=== PATIENT | male | born 1990 | race Hispanic/Latino ===

== ENCOUNTER 2017-01-16 18:42 | Inpatient (IN) | payer OTHER ==
[~2017-01-16] VITALS: Ht 170.2 cm; Wt 61.2 kg
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
[2017-01-16 20:31] LABS: ABSOLUTE BASOPHIL COUNT 0 /CUMM (0.0-0.2); ABSOLUTE EOSINOPHIL COUNT 0 /CUMM (0.0-0.7); ABSOLUTE GRANULOCYTE CT 4.8 /CUMM (1.4-6.5); ABSOLUTE LYMPH COUNT 0.9 /CUMM (1.2-3.4); ABSOLUTE MONOCYTE COUNT 0.9 /CUMM (0.10-0.60); BASOPHIL % 0.2 % (0.0-2.0); EOSINOPHIL % 0.1 % (0-5); GRANULOCYTE % 72.9 % (42.2-75.2); MEAN CORPUSCULAR HGB 30.1 PG (27.0-31.0); MEAN CORPUSCULAR HGB CONC 32.8 G/DL (33.0-37.0); MEAN CORPUSCULAR VOLUME 91.8 FL (80.0-94.0); MEAN PLATELET VOLUME 9.4 FL (7.4-10.4); PLATELET COUNT 140 /CUMM (130-400); RBC DISTRIBUTION WIDTH 13.4 % (11.5-14.5); RED BLOOD CELL CT 4.89 /CUMM (4.70-6.10); WHITE BLOOD CELL COUNT 6.6 /CUMM (4.8-10.8)
[2017-01-17] MEDS ORDERED: OLANZAPINE15 M1 PO (01:21)
[2017-01-17] MEDS ORDERED: BUPROPION HCL75 M1 PO (01:22)
[2017-01-17] MEDS ORDERED: OXYCODONE-ACET1 EACH PO (01:25)
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
[2017-01-17 02:53] LABS: PT 11.4 SEC (9.4-12.5)
[2017-01-17 03:16] VITALS: BP 152/100
--- NOTE | 2017-01-17 03:33 | CT SCAN REPORT ---
EXAMINATION: CT UPPER EXTREMITY WITHOUT CONTRAST, LEFT CLINICAL INFORMATION: Hematoma left shoulder. Concern for compartment syndrome. Increasing size and girth of left shoulder. COMPARISON: No relevant prior imaging. TECHNIQUE: A CT acquisition of the left shoulder was performed without intravenous administration of contrast. Data was reformatted into multiplanar images at the acquisition workstation. DLP: 772.71 mGy-cm FINDINGS: The diagnostic accuracy of this examination is limited due to the absence of intravenous contrast. There is diffuse nonspecific subcutaneous soft tissue swelling within the proximal left upper extremity. The possibility of a discrete fluid collection cannot be excluded. The subclavian artery and subclavian vein are not adequately assessed on this examination. There is no acute osseous finding. Specifically no acute fracture or dislocation. Limited visualization of the left hemithorax reveals no abnormal finding. IMPRESSION: This examination is significantly limited due to the absence of intravenous contrast. There is diffuse nonspecific subcutaneous soft tissue swelling of the proximal left upper extremity. Due to the absence of contrast the patency of the left subclavian artery and vein cannot be assessed and the possibility of a drainable fluid collection cannot be definitively excluded.
[2017-01-17 04:48] VITALS: BP 134/94
--- NOTE | 2017-01-17 06:40 | Admission Certification ---
Admission Certification Certification Statement - As attending physician, I certify that at the time of - admission, based on clinical presentation, severity of - symptoms, need for further diagnostic testing and - therapeutic interventions, and risk of adverse outcomes - without in-hospital treatment, in my clinical assessment, - this patient requires an acute hospital stay for a minimum - of two nights or longer. I have also considered psychsocial - factors such as support system, advanced age, financial - issues, cognitive issues, and failed out-patient treatments, - past re-admission history, safety of patient, and lack of - compliance as applicable. Specific rationale supporting this admission is: Rhabdomyolysis, acute kidney injury
[2017-01-17 06:56] VITALS: BP 130/70; BP 138/90
--- NOTE | 2017-01-17 08:33 | PN- Att Addend ---
Attending Addendum Attending Brief Note I have seen and examined the patient. He is comfortable. Rates his pain 2/10. Has no suicidal ideation right now. Follow up with psych reccs.
[2017-01-17 08:45] LABS: ABSOLUTE BASOPHIL COUNT 0 /CUMM (0.0-0.2); ABSOLUTE EOSINOPHIL COUNT 0 /CUMM (0.0-0.7); ABSOLUTE LYMPH COUNT 1.1 /CUMM (1.2-3.4); ABSOLUTE MONOCYTE COUNT 0.8 /CUMM (0.10-0.60); BASOPHIL % 0.4 % (0.0-2.0); EOSINOPHIL % 0.3 % (0-5); GRANULOCYTE % 66.5 % (42.2-75.2); MEAN CORPUSCULAR HGB 30.5 PG (27.0-31.0); MEAN CORPUSCULAR HGB CONC 33.5 G/DL (33.0-37.0); MEAN CORPUSCULAR VOLUME 91.1 FL (80.0-94.0); MEAN PLATELET VOLUME 9.7 FL (7.4-10.4); PLATELET COUNT 124 /CUMM (130-400); RBC DISTRIBUTION WIDTH 13.6 % (11.5-14.5); RED BLOOD CELL CT 4.03 /CUMM (4.70-6.10)
[2017-01-17 09:26] LABS: HEMATOCRIT 36.7 % (42-52)
--- NOTE | 2017-01-17 11:02 | PN- Att Addend ---
Attending Addendum Attending Brief Note Patient seen and examined. Plan of care discussed with the medical team and the patient. Available lab work and radiology test reports were reviewed. Patient is currently awake and alert and does not appear to be in any acute distress. History was reviewed again. Apparently patient had taken about 50 pills a mix of olanzapine bupropion and possibly Percocet on Thursday. He has been laying down at his mom's house in one position almost the entire day. At this point he states that he is not actively suicidal. Vital Signs Date Time Temp Pulse Resp B/P B/P Pulse O2 O2 Flow FiO2 Mean Ox Delivery Rate 01/17 0656 98.8 80 14 138/90 96 Room Air 01/17 0448 134/94 01/17 0316 98.4 84 14 152/100 95 Room Air 01/17 0150 96.3 99 18 125/80 97 Room Air 01/16 2302 98.7 81 16 125/77 96 Room Air 01/16 1908 97.9 110 20 108/60 99 Intake & Output 01/17 1600 01/17 0800 01/17 0000 Intake Total 150 3000 Output Total 200 Balance -50 3000 Intake, IV 150 3000 Output, Urine 200 Patient 135 lb 130 lb Weight Weight Reported by Patient Measurement Method Exam: General: Patient awake alert oriented without any distress CVS: S1 plus S2 without any murmur or gallops Chest: Few scattered crepitation without any wheeze. There is no respiratory distress. Abdomen: Soft nontender, bowel sound present, no guarding or rebound BLINDSTITCH LAPEL PADDER: Awake alert oriented without any focal neuro deficit and follows command appropriately Extremities: No edema; no clubbing or cyanosis noted Skin: Multiple blisters and superficial sloughing is noted of the left shoulder left wrist area and left trunk/hip; no evidence of cellulitis seen Laboratory Tests 01/17 01/17 0730 0210 Chemistry Sodium (137 - 145 mmol/L) 138 Potassium (3.5 - 5.1 mmol/L) 4.6 Chloride (98 - 107 mmol/L) 107 Carbon Dioxide (22 - 30 mmol/L) 24 Anion Gap (5 - 16) 6 BUN (9 - 20 mg/dL) 33 H Creatinine (0.7 - 1.2 mg/dL) 2.1 H Estimated GFR (>60 ml/min) 38 L BUN/Creatinine Ratio (7 - 25 %) 15.7 Lactic Acid (0.7 - 2.1 mmol/L) 1.2 Total Bilirubin (0.2 - 1.3 mg/dL) 0.6 Direct Bilirubin (< 0.4 mg/dL) 0.2 AST (17 - 59 U/L) 461 H ALT (21 - 72 U/L) 145 H Alkaline Phosphatase (< 127 U/L) 47 Creatine Kinase (55 - 170 U/L) 22869 H Total Protein (6.3 - 8.2 g/dL) 5.2 L Albumin (3.5 - 5.0 g/dL) 3.0 L Coagulation PT (9.4 - 12.5 SEC) 11.4 INR (0.90 - 1.17) 1.09 Hematology CBC w Diff NO MAN DIFF REQ WBC (4.8 - 10.8 /CUMM) 6.0 RBC (4.70 - 6.10 /CUMM) 4.03 L Hgb (14.0 - 18.0 G/DL) 12.3 L Hct (42 - 52 %) 36.7 L MCV (80.0 - 94.0 FL) 91.1 MCH (27.0 - 31.0 PG) 30.5 RDW (11.5 - 14.5 %) 13.6 Plt Count (130 - 400 /CUMM) 124 L MPV (7.4 - 10.4 FL) 9.7 Gran % (42.2 - 75.2 %) 66.5 Lymphocytes % (20.5 - 51.1 %) 19.1 L Monocytes % (1.7 - 9.3 %) 13.7 H Eosinophils % (0 - 5 %) 0.3 Basophils % (0.0 - 2.0 %) 0.4 Absolute Granulocytes (1.4 - 6.5 /CUMM) 4.0 Absolute Lymphocytes (1.2 - 3.4 /CUMM) 1.1 L Absolute Monocytes (0.10 - 0.60 /CUMM) 0.8 H Absolute Eosinophils (0.0 - 0.7 /CUMM) 0 Absolute Basophils (0.0 - 0.2 /CUMM) 0 PUBS MCHC (33.0 - 37.0 G/DL) 33.5 01/16 Chemistry Sodium (137 - 145 mmol/L) 133 L Potassium (3.5 - 5.1 mmol/L) 4.2 Chloride (98 - 107 mmol/L) 97 L Carbon Dioxide (22 - 30 mmol/L) 22 Anion Gap (5 - 16) 14 BUN (9 - 20 mg/dL) 39 H Creatinine (0.7 - 1.2 mg/dL) 3.3 H Estimated GFR (>60 ml/min) 23 L BUN/Creatinine Ratio (7 - 25 %) 11.8 Glucose (65 - 99 mg/dL) 122 H Calcium (8.4 - 10.2 mg/dL) 8.3 L Total Bilirubin (0.2 - 1.3 mg/dL) 0.5 AST (17 - 59 U/L) 698 H ALT (21 - 72 U/L) 191 H Alkaline Phosphatase (< 127 U/L) 64 Creatine Kinase (55 - 170 U/L) > 88160 H Total Protein (6.3 - 8.2 g/dL) 6.8 Albumin (3.5 - 5.0 g/dL) 4.3 Globulin (1.9 - 4.2 gm/dL) 2.5 Albumin/Globulin Ratio (1.1 - 2.2 %) 1.7 Hematology CBC w Diff NO MAN DIFF REQ WBC (4.8 - 10.8 /CUMM) 6.6 RBC (4.70 - 6.10 /CUMM) 4.89 Hgb (14.0 - 18.0 G/DL) 14.7 Hct (42 - 52 %) 45.0 MCV (80.0 - 94.0 FL) 91.8 MCH (27.0 - 31.0 PG) 30.1 RDW (11.5 - 14.5 %) 13.4 Plt Count (130 - 400 /CUMM) 140 MPV (7.4 - 10.4 FL) 9.4 Gran % (42.2 - 75.2 %) 72.9 Lymphocytes % (20.5 - 51.1 %) 13.8 L Monocytes % (1.7 - 9.3 %) 13.0 H Eosinophils % (0 - 5 %) 0.1 Basophils % (0.0 - 2.0 %) 0.2 Absolute Granulocytes (1.4 - 6.5 /CUMM) 4.8 Absolute Lymphocytes (1.2 - 3.4 /CUMM) 0.9 L Absolute Monocytes (0.10 - 0.60 /CUMM) 0.9 H Absolute Eosinophils (0.0 - 0.7 /CUMM) 0 Absolute Basophils (0.0 - 0.2 /CUMM) 0 PUBS MCHC (33.0 - 37.0 G/DL) 32.8 L Toxicology Salicylates (0 - 20.0 mg/dL) < 1.0 Urine Opiates Screen (>2000 NG/ML) > 4000.00 H Methadone Screen (>300 NG/ML) 46 Acetaminophen (10.0 - 30.0 ug/mL) < 10.0 L Barbiturate Screen (>200 NG/ML) < 60 Ur Phencyclidine Scrn (>25 NG/ML) < 6.00 Amphetamines Screen (>1000 NG/ML) < 100 U Benzodiazepines Scrn (>200 NG/ML) < 85 Urine Cocaine Screen (>300 NG/ML) < 50 Urine Cannabis Screen (>50 NG/ML) 26.90 Serum Alcohol (<10 MG/DL) < 10.0 Urines Urine Color (YEL,AMB,STR) YEL Urine Clarity (CLEAR) HAZY H Urine pH (5.0 - 8.0) 6.0 Ur Specific Grant (1.001 - 1.035) 1.020 Urine Protein (NEG,<30 MG/DL) 100 H Urine Ketones (NEG) NEG Urine Nitrite (NEG) NEG Urine Bilirubin (NEG) NEG Urine Urobilinogen (0.1 - 1.0 EU/dl) 0.2 Ur Leukocyte Esterase (NEG) NEG Ur Microscopic SEDIMENT EXAMINED Urine RBC (0 - 5 /HPF) 5-10 H Urine WBC (0 - 2 /HPF) > 75 H Ur Epithelial Cells (NONE,FEW) MOD H Hyaline Casts (0/LPF) RARE H Micro UA Comment MORE INFO: H Urine Hemoglobin (NEG) LARGE H Urine Glucose (N MG/DL) NEG Microbiology Date/Time Procedure - Status Source Growth 01/18 108 Urine Culture - CAN URINE ROUT Cancelled: Cancelled via OE: WILL DO ADD ON 01/16 2102 Urine Culture - RECD URINE ROUT Upper extremity CT without contrast This examination is significantly limited due to the absence of intravenous contrast. There is diffuse nonspecific subcutaneous soft tissue swelling of the proximal left upper extremity. Due to the absence of contrast the patency of the left subclavian artery and vein cannot be assessed and the possibility of a drainable fluid collection cannot be definitively excluded. Assessment * Overdose with olanzapine, appropriate on and Percocet with suicidal intent * suicidal attempt * History of bipolar disorder * Rhabdomyolysis * Superficial decubitus ulcers * Acute renal failure * Dehydration * Mild hyponatremia * Transaminitis Plan * Please change fluid to half-normal saline with 2-3 ampules of bicarbonate and run at 200-250 mL per hour * Recheck CK level tomorrow; recheck creatinine tomorrow * Psychiatric consult * Apply Silvadene cream to open skin areas 3 times a day * Continue sitter * Patient does not need to be nothing by mouth and can eat
--- NOTE | 2017-01-17 11:58 | ULTRASOUND REPORT ---
EXAMINATION: US TRIPLEX UPPER EXTREMITY, LEFT CLINICAL INFORMATION: Left shoulder hematoma versus fluid collection. Assess vessel patency. COMPARISON: None TECHNIQUE: Color-flow triplex imaging with spectral analysis and compression Doppler performed on the left upper extremity. FINDINGS: There is a normal color and spectral Doppler involving the left-sided internal jugular vein, subclavian vein, axillary vein, brachial vein, basilic vein and cephalic vein. The vessels demonstrate compressibility. No evidence of thrombosis. Subcutaneous edema is demonstrated. A prominent abnormal area of echogenicity is seen in the left upper arm laterally which would be concordant with the clinical history of hematoma. IMPRESSION: Normal triplex scan without evidence of deep venous thrombosis involving the left upper extremity. Abnormal soft tissue changes compatible with the history of hematoma, recommend clinical follow up.
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
[2017-01-17 14:21] VITALS: BP 136/58
[2017-01-17 21:59] VITALS: BP 130/76
--- NOTE | 2017-01-17 22:45 | Cons- Orthopedic ---
General Information and HPI Consulting Request Date of Consult: 01/17/17 Requested By: ANGELA CARTER MD Reason for Consult: "Septic left shoulder" vs "Left shoulder compartment syndrome" Source of Information: patient, old records History of Present Illness: 26yo M admitted to [facility] following a suicide attempt with rhabdomyalosis and acute kidney injury. He says he took a bunch of pills and "passed out" for at least one day; woke up with left shoulder swelling and superficial skin abrasion; also has left anterior thigh superifical wound. He denies shoulder pain and has full range of motion. Allergies/Medications Allergies: Coded Allergies: diphenhydramine (From BENADRYL) (HIVES 01/16/17) Home Med List: Bupropion HCl 75 MG TABLET 1 TAB PO DAILY MENTAL HEALTH (Reported) Olanzapine 15 MG TABLET 1 TAB PO QPM MENTAL HEALTH (Reported) Oxycodone HCl/Acetaminophen (Oxycodone-Acetaminophen 5-325) 5 MG-325 MG TABLET 1 TAB PO DAILY PAIN (Reported) Past History Medical History Blood Transfusion Hx: Yes Neurological: NONE EENT: NONE Cardiovascular: NONE Respiratory: NONE Gastrointestinal: NONE Hepatic: NONE Renal: NONE Musculoskeletal: NONE Psychiatric: anxiety Endocrine: NONE Blood Disorders: NONE Cancer(s): NONE 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 Home Services at Home: None Smoking Status: Current Everyday Smoker Exam & Diagnostic Data Vital Signs and I&O Vital Signs Date Time Temp Pulse Resp B/P B/P Pulse O2 O2 Flow FiO2 Mean Ox Delivery Rate 01/17 2159 99.8 77 20 130/76 97 Room Air 01/17 1421 98.4 83 20 136/58 96 01/17 0656 98.8 80 14 138/90 96 Room Air 01/17 0448 134/94 01/17 0316 98.4 84 14 152/100 95 Room Air 01/17 0150 96.3 99 18 125/80 97 Room Air 01/16 2302 98.7 81 16 125/77 96 Room Air Intake & Output 01/17 1600 01/17 0800 01/17 0000 01/16 1600 01/16 0800 01/16 0000 Intake Total 2706 818 8695 Output Total 975 200 Balance 985 -50 3000 Intake, IV 9504 909 6648 Intake, Oral 360 Number 0 Bowel Movements Output, Urine 975 200 Patient 135 lb 130 lb Weight Weight Reported by Patient Measurement Method Physical Exam: Patient resting in bed; alert and orient, no distress. LUE: Diffuse swelling of the left shoulder and left upper arm, as compared to RUE. No tenderness to palpation of left shoulder, upper arm, lower arm, or hand. Superficial abrasion to posterior shoulder; abrasions to anterolateral upper arm ; small blistering noted over medial proximal forearm. No associated cellulitis or purulent drainage. Active forward flexion of shoulder 0-170 deg 5/5 strength with manual motor testing of deltoid, biceps, triceps, and silvering applicator Sensation intact to light touch over left upper extremity Hand warm, well-perfused. Palpable radial pulse LLE: Superficial skin abrasion over left proximal anterior thigh. No right thigh tenderness to palpation proximal/distal to wound Intact left hip flexion, knee flexion/extension, ankel DF/PF Sensation intact to light touch over LLE. Last 24 Hours of Labs: Laboratory Tests 01/17 01/17 0730 0210 Chemistry Sodium (137 - 145 mmol/L) 138 Potassium (3.5 - 5.1 mmol/L) 4.6 Chloride (98 - 107 mmol/L) 107 Carbon Dioxide (22 - 30 mmol/L) 24 Anion Gap (5 - 16) 6 BUN (9 - 20 mg/dL) 33 H Creatinine (0.7 - 1.2 mg/dL) 2.1 H Estimated GFR (>60 ml/min) 38 L BUN/Creatinine Ratio (7 - 25 %) 15.7 Lactic Acid (0.7 - 2.1 mmol/L) 1.2 Total Bilirubin (0.2 - 1.3 mg/dL) 0.6 Direct Bilirubin (< 0.4 mg/dL) 0.2 AST (17 - 59 U/L) 461 H ALT (21 - 72 U/L) 145 H Alkaline Phosphatase (< 127 U/L) 47 Creatine Kinase (55 - 170 U/L) 55661 H Total Protein (6.3 - 8.2 g/dL) 5.2 L Albumin (3.5 - 5.0 g/dL) 3.0 L Coagulation PT (9.4 - 12.5 SEC) 11.4 INR (0.90 - 1.17) 1.09 Hematology CBC w Diff NO MAN DIFF REQ WBC (4.8 - 10.8 /CUMM) 6.0 RBC (4.70 - 6.10 /CUMM) 4.03 L Hgb (14.0 - 18.0 G/DL) 12.3 L Hct (42 - 52 %) 36.7 L MCV (80.0 - 94.0 FL) 91.1 MCH (27.0 - 31.0 PG) 30.5 RDW (11.5 - 14.5 %) 13.6 Plt Count (130 - 400 /CUMM) 124 L MPV (7.4 - 10.4 FL) 9.7 Gran % (42.2 - 75.2 %) 66.5 Lymphocytes % (20.5 - 51.1 %) 19.1 L Monocytes % (1.7 - 9.3 %) 13.7 H Eosinophils % (0 - 5 %) 0.3 Basophils % (0.0 - 2.0 %) 0.4 Absolute Granulocytes (1.4 - 6.5 /CUMM) 4.0 Absolute Lymphocytes (1.2 - 3.4 /CUMM) 1.1 L Absolute Monocytes (0.10 - 0.60 /CUMM) 0.8 H Absolute Eosinophils (0.0 - 0.7 /CUMM) 0 Absolute Basophils (0.0 - 0.2 /CUMM) 0 PUBS MCHC (33.0 - 37.0 G/DL) 33.5 Imaging Results: CT scan LUE (01/17/17): "There is diffuse nonspecific subcutaneous soft tissue swelling of the proximal left upper extremity." Ultrasound LUE (01/17/17): "Normal triplex scan without evidence of deep venous thrombosis involving the left upper extremity." Assessment/Plan Assessment/Plan 26yo M with painless left shoulder and left upper arm swelling s/p suicide attempt with likely prolonged pressue on left upper extremity. Superifical abrasions to posterior shoulder and upper arm, as well as abrasions to left anterior proximal thigh. Recommend continued conservative management of rhabdomyalosis and SVEN per medical team. Gentle LUE range of motion as tolerated. Avoid repetitive motions or heavy lifting with left arm. Wound care to superficial abrasions. No indication for surgical intervention. Patient may follow up in clinic as an outpatient 2wks following discharge. Clinic number is [phone]. Consult Acknowledgment - Thank you for your consult request. Attending MD Review Statement Attending Statement Attending MD Statement: examined this patient, discuss w/resident/PA/BAG WASHER, reviewed images
[2017-01-18 06:57] VITALS: BP 136/74
--- NOTE | 2017-01-18 07:43 | PN- Housestaff ---
Subjective Follow-up For: Rhabdomyolysis SVEN Left upperextremity injury suicidal ideation Overdose Complaints: no complaints Subjective: I saw and examined the patient in the morning. He was resting comfortably in the bed. He rated his pain 2 in upper left extremity. He is improving overall. Vitals are stable. He denies any chest pain palpitations or shortness of breath. Reports constipation Review of Systems Constitutional: Reports: no symptoms. Denies: chills, diaphoresis, fever. EENTM: Reports: no symptoms. Cardiovascular: Reports: no symptoms. Denies: chest pain, orthopena, palpitations. Respiratory: Reports: no symptoms. Denies: cough, hemoptysis, short of breath, sputum production. Gastrointestinal: Reports: constipation. Denies: abdominal pain, diarrhea, nausea, vomiting. Genitourinary: Reports: no symptoms. Musculoskeletal: Reports: no symptoms. Objective Last 24 Hrs of Vital Signs/I&O Vital Signs Date Time Temp Pulse Resp B/P B/P Pulse O2 O2 Flow FiO2 Mean Ox Delivery Rate 01/18 1422 98.2 80 18 146/80 96 01/18 0657 98.4 78 14 136/74 98 Room Air 01/17 2159 99.8 77 20 130/76 97 Room Air Intake & Output 01/18 1600 01/18 0800 01/18 0000 Intake Total 2000 1730 Output Total 525 Balance 1475 1730 Intake, IV 2000 1250 Intake, Oral 480 Number 1 Bowel Movements Output, Urine 525 Physical Exam General Appearance: Alert, Oriented X3, Cooperative, No Acute Distress Skin: Multiple blisters and superficial sloughing is noted of the left shoulder left wrist area and left trunk/hip; no evidence of cellulitis seen. Left upper extremity is swollen. mid arm circumference 37 cm Skin Temp/Moisture Exam: Cool/Dry HEENT: Atraumatic Neck: Supple, No JVD Cardiovascular: Normal S1, Normal S2 Lungs: Clear to Auscultation, Normal Air Movement Abdomen: Normal Bowel Sounds, Soft, No Tenderness Neurological: Normal Speech Extremities: Normal Pulses, Bruises on left upper extremity. Current Medications: Current Medications Sig/Chula Start time Last Medication Dose Route Stop Time Status Admin Docusate Sodium 100 MG DAILY NEEDED PRN 01/18 0830 AC PO Morphine Sulfate 0.5 MG Q6 PRN 01/17 0400 AC IV Oxycodone HCl 5 MG Q6 PRN 01/17 0400 AC 01/18 PO 1423 Senna 187 MG AT BEDTIME PRN 01/18 0830 AC 01/18 PO 1036 Silver Sulfadiazine 1 JANEY DAILY 01/18 1120 01/18 TOP 1418 Sodium Bicarbonate 75 MEQ Q4H 01/17 1330 01/18 Sodium Chloride 1,000 ML IV 1418 Last 24 Hrs of Lab/Han Results Last 24 Hrs of Labs/Mics: Laboratory Tests 01/18/17 0809: Anion Gap 5, Estimated GFR > 60, BUN/Creatinine Ratio 21.3, Total Bilirubin 0.6, Direct Bilirubin 0.1, AST 273 H, ALT 112 H, Alkaline Phosphatase 37, Creatine Kinase 94382 H, Total Protein 4.5 L, Albumin 2.6 L, CBC w Diff NO MAN DIFF REQ, RBC 3.19 L, MCV 91.8, MCH 30.5, RDW 13.4, MPV 9.4, Gran % 58.3, Lymphocytes % 28.4, Monocytes % 10.3 H, Eosinophils % 2.3, Basophils % 0.7, Absolute Granulocytes 3.6, Absolute Lymphocytes 1.7, Absolute Monocytes 0.6, Absolute Eosinophils 0.1, Absolute Basophils 0, PUBS MCHC 33.2 Lines/Diet/Fluids Fluids/Infusions: half-normal saline with 2 ampules of bicarbonate 250ml/h Assessment/Plan Assessment: 26-year-old male with past medical history significant for previous suicide attempts in the past, last attempt in 2016, 1 attempt to hang himself in the past, was brought into emergency department after another suicide attempt this after midnight. Opiate overdose suspected. He was missing the whole day on , patient was found wondering in the street on Thursday morning by his mother who took him home and where he spent the whole day on Thursday sleeping , patient's family decided to bring him to ED for evaluation after they noticed multiple skin sloughing. Vitals in emergency department, patient afebrile, no tachypnea, no tachycardia, systolic blood pressure ranging from 108-152 and diastolic 60-100, oxygen saturation of 96-97% on room air. Labs pertinent WBC 6.6, H&H 14.7/45, platelet 140, sodium 133, potassium 4.2, BUN/creatinine 3.9/3.3, lactic acid 1.2, AST 698, ALT 191, creatinine kinase more than 32,000, alkaline phosphatase 64, INR 1.09, toxicology positive for opioids. UA negative. #Sucidal attempt Patient has lot of stressers and attempted to commit sucide. he tired to overdose with olanzapine, appropriate on and Percocet with suicidal intent. He denies any sucidal ideation right now. * continue sitter * pt cannot leave [facility] * appreciate psych rec * plan to discharge pt to psych unit #Rhabdomyolysis and Acute kidney injury Most likely secondary to musculoskeletal injury leading to Acute kidney injury. It seems like patient has already gone into acute tubular necrosis given the BUN /creatinine ratio of less than 20. * IV hydration half-normal saline with 2 to 3 ampules of Bicarbonate at rate of 250 mL per hour * Monitoring ins and outs * Following [id number], BUN 17, Cr.8 trending down #Transaminitis Elevated ASt and Alt trending down #swelling of left shoulder * CAT scan done in ER and U/S done negative * Apply Silvadene cream to open skin areas 3 times a day * serial girth measurement of upper left extremity 37cm * monitoring upper left extremity pulses #constipation * colace 100mg prn * senna 187mg bedtime #Bipolar disorder Holding psychotropic medications for now as per psy recc takes bupropion 75 mg daily and zyprexa 15mg at home Problem List: 1. SVEN (acute kidney injury) 2. Opiate abuse, episodic 3. Abrasions of multiple sites 4. Suicide attempt 5. Rhabdomyolysis Pain Ratin Pain Location: left upper extremity Pain Goal: Pain 4 or less Pain Plan: morphine and oxycodone Tomorrow's Labs & Rationales: cbc bep Pain Location: left upper extremity Pain Goal: Pain 4 or less Pain Plan: morphine and oxycodone Tomorrow's Labs & Rationales: cbc bep
[2017-01-18 09:25] LABS: ABSOLUTE BASOPHIL COUNT 0 /CUMM (0.0-0.2); ABSOLUTE EOSINOPHIL COUNT 0.1 /CUMM (0.0-0.7); ABSOLUTE GRANULOCYTE CT 3.6 /CUMM (1.4-6.5); ABSOLUTE LYMPH COUNT 1.7 /CUMM (1.2-3.4); ABSOLUTE MONOCYTE COUNT 0.6 /CUMM (0.10-0.60); BASOPHIL % 0.7 % (0.0-2.0); EOSINOPHIL % 2.3 % (0-5); GRANULOCYTE % 58.3 % (42.2-75.2); MEAN CORPUSCULAR HGB 30.5 PG (27.0-31.0); MEAN CORPUSCULAR HGB CONC 33.2 G/DL (33.0-37.0); MEAN CORPUSCULAR VOLUME 91.8 FL (80.0-94.0); MEAN PLATELET VOLUME 9.4 FL (7.4-10.4); PLATELET COUNT 106 /CUMM (130-400); RBC DISTRIBUTION WIDTH 13.4 % (11.5-14.5); RED BLOOD CELL CT 3.19 /CUMM (4.70-6.10); WHITE BLOOD CELL COUNT 6.1 /CUMM (4.8-10.8)
[2017-01-18 09:59] LABS: HEMATOCRIT 29.3 % (42-52)
--- NOTE | 2017-01-18 11:04 | PN- Att Addend ---
Attending Addendum Attending Brief Note Patient seen and examined. Plan of care discussed with the medical team and the patient. Available lab work and radiology test reports were reviewed. Patient is currently awake and alert and does not appear to be in any acute distress. He complains of mild soreness over the left shoulder otherwise no other complaints. Vital Signs Date Time Temp Pulse Resp B/P B/P Pulse O2 O2 Flow FiO2 Mean Ox Delivery Rate 01/18 0657 98.4 78 14 136/74 98 Room Air 01/17 2159 99.8 77 20 130/76 97 Room Air 01/17 1421 98.4 83 20 136/58 96 Intake & Output 01/18 1600 01/18 0800 01/18 0000 Intake Total 1999 1730 Output Total 525 Balance 1475 1730 Intake, IV 2000 1250 Intake, Oral 480 Number 1 Bowel Movements Output, Urine 525 Exam: General: Patient awake alert oriented without any distress CVS: S1 plus S2 without any murmur or gallops Chest: Few scattered crepitation without any wheeze. There is no respiratory distress. 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2 - 1.3 mg/dL) 0.6 Direct Bilirubin (< 0.4 mg/dL) 0.1 AST (17 - 59 U/L) 273 H ALT (21 - 72 U/L) 112 H Alkaline Phosphatase (< 127 U/L) 37 Creatine Kinase (55 - 170 U/L) 44186 H Total Protein (6.3 - 8.2 g/dL) 4.5 L Albumin (3.5 - 5.0 g/dL) 2.6 L Hematology CBC w Diff NO MAN DIFF REQ WBC (4.8 - 10.8 /CUMM) 6.1 RBC (4.70 - 6.10 /CUMM) 3.19 L Hgb (14.0 - 18.0 G/DL) 9.7 L Hct (42 - 52 %) 29.3 L MCV (80.0 - 94.0 FL) 91.8 MCH (27.0 - 31.0 PG) 30.5 RDW (11.5 - 14.5 %) 13.4 Plt Count (130 - 400 /CUMM) 106 L MPV (7.4 - 10.4 FL) 9.4 Gran % (42.2 - 75.2 %) 58.3 Lymphocytes % (20.5 - 51.1 %) 28.4 Monocytes % (1.7 - 9.3 %) 10.3 H Eosinophils % (0 - 5 %) 2.3 Basophils % (0.0 - 2.0 %) 0.7 Absolute Granulocytes (1.4 - 6.5 /CUMM) 3.6 Absolute Lymphocytes (1.2 - 3.4 /CUMM) 1.7 Absolute Monocytes (0.10 - 0.60 /CUMM) 0.6 Absolute Eosinophils (0.0 - 0.7 /CUMM) 0.1 Absolute Basophils (0.0 - 0.2 /CUMM) 0 PUBS MCHC (33.0 - 37.0 G/DL) 33.2 Assessment * Overdose with olanzapine, appropriate on and Percocet with suicidal intent * suicidal attempt * History of bipolar disorder * Rhabdomyolysis * Superficial decubitus ulcers * Acute renal failure * Dehydration * Mild hyponatremia * Transaminitis Plan * Continue IV fluids with bicarbonate at 200-250 mL per hour * Recheck CK level tomorrow; recheck creatinine tomorrow * Psychiatric consult note reviewed; plan is to send patient to psychiatry unit * Apply Silvadene cream to open skin areas 3 times a day * Continue sitter * Patient cannot leave AMA
[2017-01-18 14:22] VITALS: BP 146/80
[2017-01-18 22:50] VITALS: BP 138/60
[2017-01-19 06:40] VITALS: BP 124/80
--- NOTE | 2017-01-19 08:38 | PN- Housestaff ---
Subjective Follow-up For: Rhabdomyolysis SVEN Left upperextremity injury suicidal ideation Overdose Complaints: no complaints Subjective: i have seen and examined the patient. he doenot complain of pain. His left upper extremity looks more swollen and has bruised significantly. He denies any sob, chest pain and palpitations. He reports penile swelling without any discharge or urinary difficulty Review of Systems Constitutional: Reports: no symptoms. Denies: chills, diaphoresis, fever, weakness. EENTM: Reports: no symptoms. Cardiovascular: Denies: chest pain, edema, orthopena, palpitations. Respiratory: Denies: cough, short of breath, sputum production, stridor. Gastrointestinal: Reports: no symptoms. Denies: nausea, vomiting. Objective Last 24 Hrs of Vital Signs/I&O Vital Signs Date Time Temp Pulse Resp B/P B/P Pulse O2 O2 Flow FiO2 Mean Ox Delivery Rate 01/19 1447 98.9 72 20 148/80 96 01/19 0640 98.9 70 18 124/80 98 Room Air 01/18 2250 98.6 76 19 138/60 96 Room Air Intake & Output 01/19 1600 01/19 0800 01/19 0000 Intake Total 2800 2300 1650 Output Total 1575 1500 2150 Balance 1225 800 -500 Intake, IV 2000 2000 750 Intake, Oral 800 300 900 Number 1 Bowel Movements Output, Urine 1575 1500 2150 Patient 135 lb Weight Physical Exam General Appearance: Alert, Oriented X3, Cooperative, No Acute Distress Skin: Multiple blisters and superficial sloughing is noted of the left shoulder left wrist area and left trunk/hip; no evidence of cellulitis seen. Left upper extremity is swollen. mid arm circumference 38 cm Skin Temp/Moisture Exam: Cool/Dry HEENT: Mucous Membr. moist/pink Neck: No JVD Cardiovascular: Normal S1, Normal S2, No Murmurs Lungs: Clear to Auscultation, Normal Air Movement Abdomen: Soft, No Tenderness, No Masses Neurological: Normal Speech Extremities: Normal Pulses, Bruises on left upper extremity. Increased swelling Vascular: Normal Pulses Reproductive (MALE) circumcised penis with no lesion swelling at the dorsal aspect. Nontender urethra WNL. No signs of trauma Current Medications: Current Medications Sig/Chula Start time Last Medication Dose Route Stop Time Status Admin Docusate Sodium 100 MG DAILY NEEDED PRN 01/18 0830 AC PO Morphine Sulfate 0.5 MG Q6 PRN 01/17 0400 AC IV Oxycodone HCl 5 MG Q6 PRN 01/17 0400 AC 01/19 PO 1618 Senna 187 MG AT BEDTIME PRN 01/18 0830 AC 01/18 PO 1036 Silver Sulfadiazine 1 JANEY DAILY 01/18 1120 01/19 TOP 1014 Sodium Bicarbonate 75 MEQ Q4H 01/17 1330 AC 01/19 Sodium Chloride 1,000 ML IV 1615 Last 24 Hrs of Lab/Han Results Last 24 Hrs of Labs/Mics: Laboratory Tests 01/19/1718: CBC w Diff MAN DIFF ORDERED, RBC 2.64 L, MCV 91.8, MCH 30.0, RDW 13.1, MPV 9.2, Gran % 57.0, Lymphocytes % 29.6, Monocytes % 9.2, Eosinophils % 3.7, Basophils % 0.5, Absolute Granulocytes 2.4, Segmented Neutrophils 63, Absolute Lymphocytes 1.3, Lymphocytes 29, Monocytes 3, Absolute Monocytes 0.4, Eosinophils 4, Absolute Eosinophils 0.2, Basophils 1, Absolute Basophils 0, Platelet Estimate DECREASED, Hypochromic-Microcytic 1+, PUBS MCHC 32.6 L 01/19/17 0643: Anion Gap 3 L, Estimated GFR > 60, BUN/Creatinine Ratio 14.3, Total Bilirubin 0.4, Direct Bilirubin 0.1, AST 231 H, ALT 95 H, Alkaline Phosphatase 36, Lactate Dehydrogenase 1272 H, Creatine Kinase 75197 H, Total Protein 4.2 L, Albumin 2.4 L Lines/Diet/Fluids Fluids/Infusions: half-normal saline with 2 ampules of bicarbonate 250ml/h Assessment/Plan Assessment: 26-year-old male with past medical history significant for previous suicide attempts in the past, last attempt in 2016, 1 attempt to hang himself in the past, was brought into emergency department after another suicide attempt this after midnight. Opiate overdose suspected. He was missing the whole day on , patient was found wondering in the street on Thursday morning by his mother who took him home and where he spent the whole day on Thursday sleeping , patient's family decided to bring him to ED for evaluation after they noticed multiple skin sloughing. Vitals in emergency department, patient afebrile, no tachypnea, no tachycardia, systolic blood pressure ranging from 108-152 and diastolic 60-100, oxygen saturation of 96-97% on room air. Labs pertinent WBC 6.6, H&H 14.7/45, platelet 140, sodium 133, potassium 4.2, BUN/creatinine 3.9/3.3, lactic acid 1.2, AST 698, ALT 191, creatinine kinase more than 32,000, alkaline phosphatase 64, INR 1.09, toxicology positive for opioids. UA negative. #Sucidal attempt Patient has lot of stressers and attempted to commit sucide. he tired to overdose with olanzapine, appropriate on and Percocet with suicidal intent. He denies any sucidal ideation right now. * continue sitter * pt cannot leave [facility] * appreciate psych rec * plan to discharge pt to psych unit when CK level is below 5000 #Rhabdomyolysis and Acute kidney injury Most likely secondary to musculoskeletal injury leading to Acute kidney injury. It seems like patient has already gone into acute tubular necrosis given the BUN /creatinine ratio of less than 20. * IV hydration half-normal saline with 2 to 3 ampules of Bicarbonate at rate of 250 mL per hour * K 3.3 replacaed * Monitoring ins and outs * [place] [address], BUN 10 , Cr .7 trending down #Transaminitis Elevated ASt and Alt trending down 231 and 95 #swelling of left shoulder * CAT scan done in ER and U/S done negative * Apply Silvadene cream to open skin areas 3 times a day * serial girth measurement of upper left extremity 38cm, looks more swollen and has brusied more. hematoma?? * monitoring upper left extremity pulses #constipation * colace 100mg prn * senna 187mg bedtime #Bipolar disorder Holding psychotropic medications for now as per psy recc takes bupropion 75 mg daily and zyprexa 15mg at home #Penile Swelling PT noticed that his penis was swollen after waking up today. there is no penile discharge or urinary difficulty. he denies any trauma to the area.Unclear etiology. * Uro Consulted * No need for intervention at this time. No imaging required as per uro reccs #Monitoring H&H Pts Hb has dropped from 14 to 7.9. Iv fluids vs hematoma of left arm * Blood typed * conset obtained * will monitor closely and transfuse if hb <7 Problem List: 1. SVEN (acute kidney injury) 2. Abrasions of multiple sites 3. Suicide attempt 4. Rhabdomyolysis 5. Opiate abuse, episodic Pain Ratin Pain Location: left upper extremity Pain Goal: Pain 4 or less Pain Plan: morphine and oxycodone Tomorrow's Labs & Rationales: cbc bep with bun cr inr cpk lfts
[2017-01-19 08:48] LABS: ABSOLUTE BASOPHIL COUNT 0 /CUMM (0.0-0.2); ABSOLUTE EOSINOPHIL COUNT 0.2 /CUMM (0.0-0.7); ABSOLUTE GRANULOCYTE CT 2.4 /CUMM (1.4-6.5); ABSOLUTE LYMPH COUNT 1.3 /CUMM (1.2-3.4); ABSOLUTE MONOCYTE COUNT 0.4 /CUMM (0.10-0.60); BASOPHIL % 0.5 % (0.0-2.0); MEAN CORPUSCULAR HGB CONC 32.6 G/DL (33.0-37.0); MEAN PLATELET VOLUME 9.2 FL (7.4-10.4); RBC DISTRIBUTION WIDTH 13.1 % (11.5-14.5); WHITE BLOOD CELL COUNT 4.3 /CUMM (4.8-10.8)
[2017-01-19 09:04] LABS: EOSINOPHIL % 3.7 % (0-5); MEAN CORPUSCULAR VOLUME 91.8 FL (80.0-94.0); PLATELET COUNT 95 /CUMM (130-400); RED BLOOD CELL CT 2.64 /CUMM (4.70-6.10)
[2017-01-19 09:07] LABS: HEMATOCRIT 24.2 % (42-52)
--- NOTE | 2017-01-19 09:51 | PN- Psychiatry ---
Assessment/Plan Impression: Identifying Info: 26-year-old single -British male presents [facility] emergency department on 02/15/2017 status post overdose attempt on 01/14. He consumed Zyprexa, Wellbutrin, and Percocet and is currently awaitng medical clearance. SUBJECTIVE Patient states "I'm all right." Verbalizes that he would not like to go to inpatient psychiatry, minimizes suicide attempt. Educated that due to seriousness of suicide attempt he will have to will be compelled if he requests to leave. He will consider signing voluntary that would not like to make that decision at this time. He has no complaints today. States he would be agreeable to restarting his home psychiatric medications. With patient permission left message with therapist Audi Bill of [facility] ([phone]) to call back for collateral. Brief ROS Gait: Steady Sleep: Fair Appetite: Adequate OBJECTIVE Mental Status Exam Presentation/Appearance: Cooperative with evaluation. Hospital garb. Orientation: Grossly oriented Sensorium: Awake and alert Eye contact: Fair Affect: Somewhat blunted and Mood: "I'm alright" Depression: Denies Anxiety: Denies Thought Content: - Denies SI/HI, AH/VH, PI. States and also believes they will not kill themselves. - Denies Hopeless/Helpless Thoughts Thought Process: Linear Associations: Appropriate Speech: Normal tone and rate Judgment: Poor Insight: Poor Cognition: Memory: Grossly intact Attention/Concentration: Grossly intact Fund of Knowledge: Did not assess Abstractions: Did not assess MMSE: Did not assess ASSESSMENT 26-year-old single -British male presents status post overdose attempt. He has a known history of major depression and one previous known suicide attempt. He will require inpatient psychiatric hospitalization. Diagnosis Major depressive disorder, recurrent, severe A total of 30 minutes was spent with the patient with more than 50% of the time spent in counseling and/or coordination of care. Suggestion: 1. The patient may not leave AMA. If he attempts to leave hospital and will need to be placed on PEC. We'll continue to encourage voluntary admission. Patient is agreeable to stay in hospital at this time. 2. Continue to hold psychotropic medication. 3. Continue sitter. Thank you for including psychiatry in this case, will continue to follow. Subjective Subjective: as above Objective Last 24 Hrs of Vital Signs/I&O Vital Signs Date Time Temp Pulse Resp B/P B/P Pulse O2 O2 Flow FiO2 Mean Ox Delivery Rate 01/19 0640 98.9 70 18 124/80 98 Room Air 01/18 2250 98.6 76 19 138/60 96 Room Air 01/18 1422 98.2 80 18 146/80 96 Intake & Output 01/19 1600 01/19 0800 01/19 0000 Intake Total 2300 1650 Output Total 1500 2150 Balance 800 -500 Intake, IV 2000 750 Intake, Oral 300 900 Output, Urine 1500 2150 Patient 135 lb Weight
--- NOTE | 2017-01-19 10:57 | PN- Att Addend ---
Attending Addendum Attending Brief Note Patient seen and examined. Plan of care discussed with the medical team and the patient. Available lab work and radiology test reports were reviewed. Patient is currently awake and alert and does not appear to be in any acute distress. He complains of mild soreness over the left shoulder otherwise no other complaints Vital Signs Date Time Temp Pulse Resp B/P B/P Pulse O2 O2 Flow FiO2 Mean Ox Delivery Rate 01/19 0640 98.9 70 18 124/80 98 Room Air 01/18 2250 98.6 76 19 138/60 96 Room Air 01/18 1422 98.2 80 18 146/80 96 Intake & Output 01/19 1600 01/19 0800 01/19 0000 Intake Total 2300 1650 Output Total 1500 2150 Balance 800 -500 Intake, IV 2000 750 Intake, Oral 300 900 Output, Urine 1500 2150 Patient 135 lb Weight xam: General: Patient awake alert oriented without any distress CVS: S1 plus S2 without any murmur or gallops Chest: Few scattered crepitation without any wheeze. There is no respiratory distress. 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 alert oriented without any focal neuro deficit and follows command appropriately Extremities: No edema; no clubbing or cyanosis noted Skin: Multiple blisters and superficial sloughing is noted of the left shoulder left wrist area and left trunk/hip; no evidence of cellulitis seen; left upper arm is covered with bruise Laboratory Tests 01/19 01/19 0718 0643 Chemistry Sodium (137 - 145 mmol/L) 139 Potassium (3.5 - 5.1 mmol/L) 3.3 L Chloride (98 - 107 mmol/L) 103 Carbon Dioxide (22 - 30 mmol/L) 34 H Anion Gap (5 - 16) 3 L BUN (9 - 20 mg/dL) 10 Creatinine (0.7 - 1.2 mg/dL) 0.7 Estimated GFR (>60 ml/min) > 60 BUN/Creatinine Ratio (7 - 25 %) 14.3 Total Bilirubin (0.2 - 1.3 mg/dL) 0.4 Direct Bilirubin (< 0.4 mg/dL) 0.1 AST (17 - 59 U/L) 231 H ALT (21 - 72 U/L) 95 H Alkaline Phosphatase (< 127 U/L) 36 Creatine Kinase (55 - 170 U/L) 57217 H Total Protein (6.3 - 8.2 g/dL) 4.2 L Albumin (3.5 - 5.0 g/dL) 2.4 L Hematology CBC w Diff NO MAN DIFF REQ WBC (4.8 - 10.8 /CUMM) 4.3 L RBC (4.70 - 6.10 /CUMM) 2.64 L Hgb (14.0 - 18.0 G/DL) 7.9 L Hct (42 - 52 %) 24.2 L MCV (80.0 - 94.0 FL) 91.8 MCH (27.0 - 31.0 PG) 30.0 RDW (11.5 - 14.5 %) 13.1 Plt Count (130 - 400 /CUMM) 95 L MPV (7.4 - 10.4 FL) 9.2 Gran % (42.2 - 75.2 %) 57.0 Lymphocytes % (20.5 - 51.1 %) 29.6 Monocytes % (1.7 - 9.3 %) 9.2 Eosinophils % (0 - 5 %) 3.7 Basophils % (0.0 - 2.0 %) 0.5 Absolute Granulocytes (1.4 - 6.5 /CUMM) 2.4 Absolute Lymphocytes (1.2 - 3.4 /CUMM) 1.3 Absolute Monocytes (0.10 - 0.60 /CUMM) 0.4 Absolute Eosinophils (0.0 - 0.7 /CUMM) 0.2 Absolute Basophils (0.0 - 0.2 /CUMM) 0 PUBS MCHC (33.0 - 37.0 G/DL) 32.6 L Assessment * Overdose with olanzapine, bupropion, and Percocet with suicidal intent * suicidal attempt * History of bipolar disorder * Rhabdomyolysis * Superficial decubitus ulcers * Acute renal failure * Dehydration * Mild hyponatremia * Transaminitis- * Left arm bruise * Hypokalemia Plan * Continue IV fluids with bicarbonate at 200-250 mL per hour * Recheck CK level tomorrow; recheck creatinine tomorrow * Replace potassium by mouth * Psychiatric consult note reviewed; plan is to send patient to psychiatry unit possibly tomorrow was CK level is below 5000 * Continue Silvadene cream to open skin areas 3 times a day * Continue sitter * Patient cannot leave A
[2017-01-19 14:47] VITALS: BP 148/80
--- NOTE | 2017-01-19 16:57 | Cons- Urology ---
General Information and HPI Consulting Request Date of Consult: 01/19/17 Requested By: ANGELA CARTER MD Reason for Consult: PENILE SWELLING Source of Information: patient Exam Limitations: no limitations History of Present Illness: 26YO with multiple hx of suicide attemtps with recent ingestion of multiple meds. He woke up this morning while an inpatient and noticed that his penis was swollen. he has had no issues with penile discharge or urinary difficulty. he has never had any prior issue like this. he has had chlamydia in the past but otherwise no genitalia issues. He did not place any objects into his penis. No trauma to the area. No recent sexual activity that was associated with any snap or trauma. Allergies/Medications Allergies: Coded Allergies: diphenhydramine (From BENADRYL) (HIVES 01/16/17) Home Med List: Bupropion HCl 75 MG TABLET 1 TAB PO DAILY MENTAL HEALTH (Reported) Olanzapine 15 MG TABLET 1 TAB PO QPM MENTAL HEALTH (Reported) Oxycodone HCl/Acetaminophen (Oxycodone-Acetaminophen 5-325) 5 MG-325 MG TABLET 1 TAB PO DAILY PAIN (Reported) Current Medications: Current Medications Sig/Chula Start time Last Medication Dose Route Stop Time Status Admin Docusate Sodium 100 MG DAILY NEEDED PRN 01/18 0830 AC PO Morphine Sulfate 0.5 MG Q6 PRN 01/17 0400 AC IV Oxycodone HCl 5 MG Q6 PRN 01/17 0400 AC / PO 1618 Senna 187 MG AT BEDTIME PRN 01/18 0830 AC 01/18 PO 1036 Silver Sulfadiazine 1 JANEY DAILY 01/18 1120 AC 01/19 TOP 1014 Sodium Bicarbonate 75 MEQ Q4H 01/17 1330 AC 01/19 Sodium Chloride 1,000 ML IV 1615 Past History Medical History Blood Transfusion Hx: Yes Neurological: NONE EENT: NONE Cardiovascular: NONE Respiratory: NONE Gastrointestinal: NONE Hepatic: NONE Renal: NONE Musculoskeletal: NONE Psychiatric: anxiety Endocrine: NONE Blood Disorders: NONE Cancer(s): 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 Home Services at Home: None Smoking Status: Current Everyday Smoker Review of Systems Review of Systems Constitutional: Reports: no symptoms. EENTM: Reports: no symptoms. Cardiovascular: Reports: no symptoms. Respiratory: Reports: no symptoms. GI: Reports: no symptoms. Genitourinary: Reports: no symptoms. Musculoskeletal: Reports: no symptoms. Skin: Reports: change in skin color. Neurological/Psychological: Reports: depressed. Hematologic/Endocrine: Reports: bruising, bleeding. Exam & Diagnostic Data Vital Signs and I&O Vital Signs Date Time Temp Pulse Resp B/P B/P Pulse O2 O2 Flow FiO2 Mean Ox Delivery Rate 01/19 1447 98.9 72 20 148/80 96 01/19 0640 98.9 70 18 124/80 98 Room Air 01/18 2250 98.6 76 19 138/60 96 Room Air Intake & Output 01/19 1600 01/19 0800 01/19 0000 01/18 1600 01/18 0800 01/18 0000 Intake Total 2800 2300 1650 2500 2000 1730 Output Total 1575 1500 2150 525 Balance 1225 800 -500 2500 1475 1730 Intake, IV 2000 2000 750 2000 2000 1250 Intake, Oral 800 300 900 500 480 Number 1 1 Bowel Movements Output, Urine 1575 1500 2150 525 Patient 61.235 kg Weight Physical Exam: awake and alert lying in bed watching TV abd soft, ND/NT circumcised penis with no lesion swelling at the dorsal aspect. nontender urethra WNL. No signs of trauma Physical Exam General Appearance: well developed/nourished, no apparent distress, alert, awake , comfortable Head: atraumatic, normal appearance Eyes: Bilateral: normal appearance. Ears, Nose, Throat: normal ENT inspection Neck: normal inspection Respiratory: no respiratory distress Gastrointestinal: soft, non-tender Rectal: deferred Neurologic/Psych: awake, alert, oriented x 3 Cranial Nerves: normal hearing, normal speech Reproductive: Normal male genitalia Last 24 Hours of Labs: Laboratory Tests 01/19 01/19 0718 0643 Chemistry Sodium (137 - 145 mmol/L) 139 Potassium (3.5 - 5.1 mmol/L) 3.3 L Chloride (98 - 107 mmol/L) 103 Carbon Dioxide (22 - 30 mmol/L) 34 H Anion Gap (5 - 16) 3 L BUN (9 - 20 mg/dL) 10 Creatinine (0.7 - 1.2 mg/dL) 0.7 Estimated GFR (>60 ml/min) > 60 BUN/Creatinine Ratio (7 - 25 %) 14.3 Total Bilirubin (0.2 - 1.3 mg/dL) 0.4 Direct Bilirubin (< 0.4 mg/dL) 0.1 AST (17 - 59 U/L) 231 H ALT (21 - 72 U/L) 95 H Alkaline Phosphatase (< 127 U/L) 36 Lactate Dehydrogenase (313 - 618 U/L) 1272 H Creatine Kinase (55 - 170 U/L) 89532 H Total Protein (6.3 - 8.2 g/dL) 4.2 L Albumin (3.5 - 5.0 g/dL) 2.4 L Hematology CBC w Diff MAN DIFF ORDERED WBC (4.8 - 10.8 /CUMM) 4.3 L RBC (4.70 - 6.10 /CUMM) 2.64 L Hgb (14.0 - 18.0 G/DL) 7.9 L Hct (42 - 52 %) 24.2 L MCV (80.0 - 94.0 FL) 91.8 MCH (27.0 - 31.0 PG) 30.0 RDW (11.5 - 14.5 %) 13.1 Plt Count (130 - 400 /CUMM) 95 L MPV (7.4 - 10.4 FL) 9.2 Gran % (42.2 - 75.2 %) 57.0 Lymphocytes % (20.5 - 51.1 %) 29.6 Monocytes % (1.7 - 9.3 %) 9.2 Eosinophils % (0 - 5 %) 3.7 Basophils % (0.0 - 2.0 %) 0.5 Absolute Granulocytes (1.4 - 6.5 /CUMM) 2.4 Segmented Neutrophils (42.2 - 75.2 %) 63 Absolute Lymphocytes (1.2 - 3.4 /CUMM) 1.3 Lymphocytes (20.5 - 51.1 %) 29 Monocytes (1.7 - 9.3 %) 3 Absolute Monocytes (0.10 - 0.60 /CUMM) 0.4 Eosinophils (0 - 5.0 %) 4 Absolute Eosinophils (0.0 - 0.7 /CUMM) 0.2 Basophils (0.0 - 2.0 %) 1 Absolute Basophils (0.0 - 0.2 /CUMM) 0 Platelet Estimate (ADEQUATE) DECREASED Hypochromic-Microcytic 1+ PUBS MCHC (33.0 - 37.0 G/DL) 32.6 L Assessment/Plan Assessment/Plan 26yo male with psych issues with new onset of penile swelling likely edema in the skin only. Unclear etiology but may be a drug reaction. No need for intervention at this time. No imaging required. He will let service know if it returns but should resolve without intervention. Consult Acknowledgment - Thank you for your consult request.
[2017-01-19 22:19] VITALS: BP 126/70
[2017-01-20 06:46] VITALS: BP 110/74
--- NOTE | 2017-01-20 07:44 | PN- Housestaff ---
Subjective Follow-up For: Rhabdomyolysis SVEN Left upperextremity injury suicidal ideation Overdose Complaints: Swellimg of left upper arm Subjective: I have seen and examined the patient. Patient was resting comfortably in bed. His left upper extremity is swollen and bruised. Left hand is also swollen now. Patient wants to take a shower. He denies any shortness of breath chest pain palpitations. His penile swelling is the same. There are no overnight acute events. Review of Systems Constitutional: Reports: no symptoms. Denies: chills, fever, malaise. EENTM: Reports: no symptoms. Cardiovascular: Reports: no symptoms. Denies: chest pain, edema, palpitations. Respiratory: Reports: no symptoms. Denies: cough, short of breath, sputum production. Gastrointestinal: Denies: constipation, diarrhea, nausea, vomiting. Objective Last 24 Hrs of Vital Signs/I&O Vital Signs Date Time Temp Pulse Resp B/P B/P Pulse O2 O2 Flow FiO2 Mean Ox Delivery Rate 01/20 0646 98.8 72 20 110/74 95 Room Air 01/20 0000 95 Room Air 01/19 2219 99.5 88 20 126/70 95 Room Air 01/19 1447 98.9 72 20 148/80 96 Intake & Output 01/20 1600 01/20 0800 01/20 0000 Intake Total 1999 1999 Output Total 900 2175 Balance 1100 -175 Intake, IV 1999 1999 Intake, Oral 0 Number 0 Bowel Movements Output, Urine 900 2175 Physical Exam General Appearance: Alert, Oriented X3, Cooperative, No Acute Distress Skin: Multiple blisters and superficial sloughing is noted of the left shoulder left wrist area and left trunk/hip; no evidence of cellulitis seen. Left upper extremity is swollen, including the hand. mid arm circumference 37cm Skin Temp/Moisture Exam: Cool/Dry HEENT: Mucous Membr. moist/pink Neck: Supple Cardiovascular: Normal S1, Normal S2, No Murmurs Lungs: Clear to Auscultation, Normal Air Movement Abdomen: Soft, No Tenderness, No Masses Neurological: Normal Speech Extremities: Normal Pulses, Bruises on left upper extremity. Increased swelling Vascular: Normal Pulses Current Medications: Current Medications Sig/Chula Start time Last Medication Dose Route Stop Time Status Admin Docusate Sodium 100 MG DAILY NEEDED PRN 01/18 0830 AC PO Morphine Sulfate 0.5 MG Q6 PRN 01/17 0400 AC IV Oxycodone HCl 5 MG Q6 PRN 01/17 0400 AC 01/19 PO 2208 Potassium Chloride 40 MEQ ONCE ONE 01/20 1200 UNVr PO 01/20 1201 Senna 187 MG AT BEDTIME PRN 01/18 0830 AC 01/18 PO 1036 Silver Sulfadiazine 1 JANEY DAILY 01/18 1120 AC 01/20 TOP 0835 Sodium Bicarbonate 75 MEQ Q4H 01/17 1330 AC 01/20 Sodium Chloride 1,000 ML IV 0835 Last 24 Hrs of Lab/Han Results Last 24 Hrs of Labs/Mics: Laboratory Tests 01/20/17 0635: Anion Gap 5, Estimated GFR > 60, BUN/Creatinine Ratio 11.4, Total Bilirubin 0.6, Direct Bilirubin 0.1, AST 184 H, ALT 97 H, Alkaline Phosphatase 38, Creatine Kinase 80642 H, Total Protein 4.7 L, Albumin 2.7 L, PT 11.4, INR 1.09, CBC w Diff NO MAN DIFF REQ, RBC 2.70 L, MCV 91.9, MCH 30.7, RDW 12.7, MPV 8.8, Gran % 55.4, Lymphocytes % 30.5, Monocytes % 9.3, Eosinophils % 4.3, Basophils % 0.5, Absolute Granulocytes 2.8, Absolute Lymphocytes 1.5, Absolute Monocytes 0.5, Absolute Eosinophils 0.2, Absolute Basophils 0, PUBS MCHC 33.4 Assessment/Plan Assessment: 26-year-old male with past medical history significant for previous suicide attempts in the past, last attempt in 2016, 1 attempt to hang himself in the past, was brought into emergency department after another suicide attempt this after midnight. Opiate overdose suspected. He was missing the whole day on , patient was found wondering in the street on Thursday morning by his mother who took him home and where he spent the whole day on Thursday sleeping , patient's family decided to bring him to ED for evaluation after they noticed multiple skin sloughing. Vitals in emergency department, patient afebrile, no tachypnea, no tachycardia, systolic blood pressure ranging from 108-152 and diastolic 60-100, oxygen saturation of 96-97% on room air. Labs pertinent WBC 6.6, H&H 14.7/45, platelet 140, sodium 133, potassium 4.2, BUN/creatinine 3.9/3.3, lactic acid 1.2, AST 698, ALT 191, creatinine kinase more than 32,000, alkaline phosphatase 64, INR 1.09, toxicology positive for opioids. UA negative. #Sucidal attempt Patient has lot of stressers and attempted to commit sucide. he tired to overdose with olanzapine, appropriate on and Percocet with suicidal intent. He denies any sucidal ideation right now. * continue sitter * pt cannot leave ama * appreciate psych rec * plan to discharge pt to psych unit when CK level is below 5000 #Rhabdomyolysis and Acute kidney injury Most likely secondary to musculoskeletal injury leading to Acute kidney injury. It seems like patient has already gone into acute tubular necrosis given the BUN /creatinine ratio of less than 20. * IV hydration half-normal saline with 2 to 3 ampules of Bicarbonate at rate of 250 mL per hour * K 3.3 replacaed * Monitoring ins and outs * [place] [address], BUN 8 , Cr .7 trending down #Transaminitis Elevated ASt and Alt trending down 184 and 97 #swelling of left shoulder * CAT scan done in ER and U/S done negative * Apply Silvadene cream to open skin areas 3 times a day * serial girth measurement of upper left extremity 37 cm, looks more swollen and has brusied more. hematoma?? * monitoring upper left extremity pulses #constipation * colace 100mg prn * senna 187mg bedtime #Bipolar disorder Holding psychotropic medications for now as per psy recc takes bupropion 75 mg daily and zyprexa 15mg at home #Penile Swelling PT noticed that his penis was swollen after waking up today. there is no penile discharge or urinary difficulty. he denies any trauma to the area.Unclear etiology. * Uro Consulted * No need for intervention at this time. No imaging required as per uro reccs #Monitoring H&H Pts Hb dropped from 14 to 7.9. Iv fluids vs hematoma of left arm * will monitor closely and transfuse if hb <7 * H&H 8.2 and 24.8 trending up Problem List: 1. SVEN (acute kidney injury) 2. Opiate abuse, episodic 3. Abrasions of multiple sites 4. Suicide attempt 5. Rhabdomyolysis Pain Ratin Pain Location: left upper extremity Pain Goal: Pain 4 or less Pain Plan: morphine and oxycodone Tomorrow's Labs & Rationales: LFT CPK cbc bep
[2017-01-20 08:02] LABS: PT 11.4 SEC (9.4-12.5)
[2017-01-20 08:07] LABS: ABSOLUTE BASOPHIL COUNT 0 /CUMM (0.0-0.2); ABSOLUTE EOSINOPHIL COUNT 0.2 /CUMM (0.0-0.7); ABSOLUTE GRANULOCYTE CT 2.8 /CUMM (1.4-6.5); ABSOLUTE LYMPH COUNT 1.5 /CUMM (1.2-3.4); ABSOLUTE MONOCYTE COUNT 0.5 /CUMM (0.10-0.60); BASOPHIL % 0.5 % (0.0-2.0); EOSINOPHIL % 4.3 % (0-5); GRANULOCYTE % 55.4 % (42.2-75.2); HEMATOCRIT 24.8 % (42-52); MEAN CORPUSCULAR HGB 30.7 PG (27.0-31.0); MEAN CORPUSCULAR HGB CONC 33.4 G/DL (33.0-37.0); MEAN CORPUSCULAR VOLUME 91.9 FL (80.0-94.0); MEAN PLATELET VOLUME 8.8 FL (7.4-10.4); PLATELET COUNT 115 /CUMM (130-400); RBC DISTRIBUTION WIDTH 12.7 % (11.5-14.5)
--- NOTE | 2017-01-20 10:08 | PN- Att Addend ---
Attending Addendum Attending Brief Note Patient seen and examined. Plan of care discussed with the medical team and the patient. Available lab work and radiology test reports were reviewed. Patient is currently awake and alert and does not appear to be in any acute distress. He complains of mild soreness over the left shoulder otherwise no other complaints. He complains of left hand swelling. Vital Signs Date Time Temp Pulse Resp B/P B/P Pulse O2 O2 Flow FiO2 Mean Ox Delivery Rate 01/20 0646 98.8 72 20 110/74 95 Room Air 01/19 2219 99.5 88 20 126/70 95 Room Air 01/19 1447 98.9 72 20 148/80 96 Intake & Output 01/20 1600 01/20 0800 01/20 0000 Intake Total 1999 Output Total 300 2175 Balance -300 -175 Intake, IV 1999 Output, Urine 300 2175 Exam: General: Patient awake alert oriented without any distress CVS: S1 plus S2 without any murmur or gallops Chest: Few scattered crepitation without any wheeze. There is no respiratory distress. Abdomen: Soft nontender, bowel sound present, no guarding or rebound SERVICES TECH: Awake alert oriented without any focal neuro deficit and follows command appropriately Extremities: No edema; no clubbing or cyanosis noted Skin: Multiple blisters and superficial sloughing is noted of the left shoulder left wrist area and left trunk/hip; no evidence of cellulitis seen; left upper arm is covered with bruise/ecchymosis Laboratory Tests 01/20 0635 Chemistry Sodium (137 - 145 mmol/L) 139 Potassium (3.5 - 5.1 mmol/L) 3.3 L Chloride (98 - 107 mmol/L) 101 Carbon Dioxide (22 - 30 mmol/L) 33 H Anion Gap (5 - 16) 5 BUN (9 - 20 mg/dL) 8 L Creatinine (0.7 - 1.2 mg/dL) 0.7 Estimated GFR (>60 ml/min) > 60 BUN/Creatinine Ratio (7 - 25 %) 11.4 Total Bilirubin (0.2 - 1.3 mg/dL) 0.6 Direct Bilirubin (< 0.4 mg/dL) 0.1 AST (17 - 59 U/L) 184 H ALT (21 - 72 U/L) 97 H Alkaline Phosphatase (< 127 U/L) 38 Creatine Kinase (55 - 170 U/L) 53709 H Total Protein (6.3 - 8.2 g/dL) 4.7 L Albumin (3.5 - 5.0 g/dL) 2.7 L Coagulation PT (9.4 - 12.5 SEC) 11.4 INR (0.90 - 1.17) 1.09 Hematology CBC w Diff NO MAN DIFF REQ WBC (4.8 - 10.8 /CUMM) 5.0 RBC (4.70 - 6.10 /CUMM) 2.70 L Hgb (14.0 - 18.0 G/DL) 8.3 L Hct (42 - 52 %) 24.8 L MCV (80.0 - 94.0 FL) 91.9 MCH (27.0 - 31.0 PG) 30.7 RDW (11.5 - 14.5 %) 12.7 Plt Count (130 - 400 /CUMM) 115 L MPV (7.4 - 10.4 FL) 8.8 Gran % (42.2 - 75.2 %) 55.4 Lymphocytes % (20.5 - 51.1 %) 30.5 Monocytes % (1.7 - 9.3 %) 9.3 Eosinophils % (0 - 5 %) 4.3 Basophils % (0.0 - 2.0 %) 0.5 Absolute Granulocytes (1.4 - 6.5 /CUMM) 2.8 Absolute Lymphocytes (1.2 - 3.4 /CUMM) 1.5 Absolute Monocytes (0.10 - 0.60 /CUMM) 0.5 Absolute Eosinophils (0.0 - 0.7 /CUMM) 0.2 Absolute Basophils (0.0 - 0.2 /CUMM) 0 PUBS MCHC (33.0 - 37.0 G/DL) 33.4 Assessment * Overdose with olanzapine, bupropion, and Percocet with suicidal intent * suicidal attempt * History of bipolar disorder * Rhabdomyolysis- CK level gradually coming down but still above 10,000 * Superficial decubitus ulcers * Acute renal failure * Dehydration * Mild hyponatremia * Transaminitis- * Left arm bruise * Hypokalemia Plan * Continue IV fluids with bicarbonate at 200-250 mL per hour * Recheck CK level tomorrow; recheck creatinine tomorrow * Replace potassium by mouth * Psychiatric consult note reviewed; plan is to send patient to psychiatry unit possibly tomorrow if CK level is below 5000 * Continue Silvadene cream to open skin areas 3 times a day * Continue sitter * Patient cannot leave AMA * Patient can take shower
[2017-01-20 14:58] VITALS: BP 132/60
[2017-01-20 22:31] VITALS: BP 122/58
[2017-01-21 06:22] VITALS: BP 122/70
[2017-01-21 06:23] VITALS: BP 120/70
[2017-01-21 09:10] LABS: ABSOLUTE BASOPHIL COUNT 0 /CUMM (0.0-0.2); ABSOLUTE EOSINOPHIL COUNT 0.2 /CUMM (0.0-0.7); ABSOLUTE LYMPH COUNT 1.6 /CUMM (1.2-3.4); ABSOLUTE MONOCYTE COUNT 0.5 /CUMM (0.10-0.60); BASOPHIL % 0.3 % (0.0-2.0); GRANULOCYTE % 56.3 % (42.2-75.2); MEAN CORPUSCULAR HGB 30.4 PG (27.0-31.0); MEAN CORPUSCULAR HGB CONC 33.3 G/DL (33.0-37.0); MEAN CORPUSCULAR VOLUME 91.2 FL (80.0-94.0); MEAN PLATELET VOLUME 9.2 FL (7.4-10.4); PLATELET COUNT 127 /CUMM (130-400); RBC DISTRIBUTION WIDTH 12.9 % (11.5-14.5); RED BLOOD CELL CT 2.63 /CUMM (4.70-6.10); WHITE BLOOD CELL COUNT 5.3 /CUMM (4.8-10.8)
--- NOTE | 2017-01-21 09:32 | PN- Psychiatry ---
See Addendum Assessment/Plan Impression: Identifying Info: 26-year-old single -Greek male presents [facility] emergency department on 02/15/2017 status post overdose attempt on 01/14. He consumed Zyprexa, Wellbutrin, and Percocet and is currently awaiting medical clearance. SUBJECTIVE Patient presents today without complaint. Is now agreeable to going to inpatient psychiatry and reports he will sign in voluntarily. Brief ROS Gait: Steady Sleep: Fair Appetite: Adequate OBJECTIVE Mental Status Exam Presentation/Appearance: Cooperative with evaluation. Hospital garb. Orientation: Grossly oriented Sensorium: Awake and alert Eye contact: Fair Affect: Somewhat blunted Mood: Euthymic Depression: Denies Anxiety: Denies Thought Content: - Denies SI/HI, AH/VH, PI. States and also believes they will not kill themselves. - Denies Hopeless/Helpless Thoughts Thought Process: Linear Associations: Appropriate Speech: Normal tone and rate Judgment: Poor Insight: Poor Cognition: Memory: Grossly intact Attention/Concentration: Grossly intact Fund of Knowledge: Did not assess Abstractions: Did not assess MMSE: Did not assess ASSESSMENT 26-year-old single -Greek male presents status post overdose attempt. He has a known history of major depression and one previous known suicide attempt. He will require inpatient psychiatric hospitalization. Diagnosis Major depressive disorder, recurrent, severe A total of 30 minutes was spent with the patient with more than 50% of the time spent in counseling and/or coordination of care. Suggestion: 1. The patient may not leave AMA. If he attempts to leave hospital and will need to be placed on PEC. At present he plans to sign in to unit voluntary. 2. Continue to hold psychotropic medication. 3. Continue sitter. Thank you for including psychiatry in this case, will continue to follow. Subjective Subjective: as above Objective Last 24 Hrs of Vital Signs/I&O Current Medications Sig/Chula Start time Last Medication Dose Route Stop Time Status Admin Acetaminophen 325 MG ONCE ONE 01/20 2100 DC 01/20 PO 01/20 2101 2058 Docusate Sodium 100 MG DAILY NEEDED PRN 01/18 0830 AC PO Morphine Sulfate 0.5 MG Q6 PRN 01/17 0400 AC IV Ondansetron HCl 4 MG .STK-MED ONE 01/21 0011 DC PO 01/21 0012 Ondansetron HCl 4 MG ONCE ONE 01/20 2345 DC 01/21 PO 01/20 2346 0012 Oxycodone HCl 5 MG Q6 PRN 01/17 0400 AC 01/20 PO 1840 Potassium Chloride 40 MEQ ONCE ONE 01/20 1200 DC 01/20 PO 01/20 1201 1247 Senna 187 MG AT BEDTIME PRN 01/18 0830 AC 01/18 PO 1036 Silver Sulfadiazine 1 JANEY DAILY 01/18 1120 01/21 TOP 0924 Sodium Bicarbonate 75 MEQ Q4H 01/17 1330 01/21 Sodium Chloride 1,000 ML IV 0924 Laboratory Tests 01/21/17 0725: Sodium Pending, Potassium Pending, Chloride Pending, Carbon Dioxide Pending, Anion Gap Pending, BUN Pending, Creatinine Pending, BUN/Creatinine Ratio Pending , Total Bilirubin Pending, Direct Bilirubin Pending, AST Pending, ALT Pending, Alkaline Phosphatase Pending, Creatine Kinase Pending, Total Protein Pending, Albumin Pending, CBC w Diff NO MAN DIFF REQ, RBC 2.63 L, MCV 91.2, MCH 30.4, RDW 12.9, MPV 9.2, Gran % 56.3, Lymphocytes % 29.8, Monocytes % 9.6 H, Eosinophils % 4.0, Basophils % 0.3, Absolute Granulocytes 3.0, Absolute Lymphocytes 1.6, Absolute Monocytes 0.5, Absolute Eosinophils 0.2, Absolute Basophils 0, PUBS MCHC 33.3 Vital Signs Date Time Temp Pulse Resp B/P B/P Pulse O2 O2 Flow FiO2 Mean Ox Delivery Rate 01/21 0623 97.7 80 18 120/70 96 Room Air 01/21 0622 98.0 100 14 122/70 97 Room Air 01/20 2231 99.1 63 20 122/58 96 Room Air 01/20 1458 98.7 83 20 132/60 96 Room Air Intake & Output 01/21 1600 01/21 0800 01/21 0000 Intake Total 1000 Output Total 2100 1300 Balance -2100 -300 Intake, IV 1000 Output, Urine 2100 1300
--- NOTE | 2017-01-21 11:04 | PN- Housestaff ---
LYRIC VIEIRA,[facility] 01/21/17 1104: Subjective Follow-up For: Rhabdomyolysis SVEN Left upperextremity injury suicidal ideation Overdose Complaints: no complaints Subjective: seen and examined the patient. He was resting comfortably in bed. His left upper extremity is still swollen and bruised. However he does not complain of any pain. He still complains of penile swelling. There are no overnight acute events. He denies any shortness of breath chest pain and palpitations. He will be discharged to Inpatient Psychiatry. He denies any suicidal ideation. Review of Systems Constitutional: Reports: no symptoms. EENTM: Reports: no symptoms. Cardiovascular: Denies: chest pain, palpitations. Respiratory: Denies: cough, short of breath, sputum production, stridor. Gastrointestinal: Denies: constipation, diarrhea, distention, bowel incontinence, nausea, vomiting. Objective Last 24 Hrs of Vital Signs/I&O Vital Signs Date Time Temp Pulse Resp B/P B/P Pulse O2 O2 Flow FiO2 Mean Ox Delivery Rate 01/21 1337 98.2 64 20 122/70 97 Room Air 01/21 0623 97.7 80 18 120/70 96 Room Air / 0622 98.0 100 14 122/70 97 Room Air / 2231 99.1 63 20 122/58 96 Room Air / 1458 98.7 83 20 132/60 96 Room Air Intake & Output 01/21 1600 07/05 0800 07/05 0000 Intake Total 2000 1000 Output Total 2475 2100 1300 Balance -475 -2100 -300 Intake, IV 1000 1000 Intake, Oral 1000 Number 1 Bowel Movements Output, Urine 2475 2100 1300 Physical Exam General Appearance: Alert, Oriented X3, Cooperative, No Acute Distress Skin: Multiple blisters and superficial sloughing is noted of the left shoulder left wrist area and left trunk/hip; no evidence of cellulitis seen. Left upper extremity is swollen, including the hand. mid arm circumference 36cm Skin Temp/Moisture Exam: Cool/Dry Neck: Supple Cardiovascular: Normal S1, Normal S2 Lungs: Clear to Auscultation, Normal Air Movement Abdomen: Normal Bowel Sounds, Soft, No Tenderness Neurological: Normal Speech Extremities: Normal Pulses, Bruises on left upper extremity. swelling better Reproductive (MALE) penile swelling Current Medications: Current Medications Sig/Chula Start time Last Medication Dose Route Stop Time Status Admin Acetaminophen 325 MG ONCE ONE 01/20 2100 DC 01/20 PO 01/20 210 205 Docusate Sodium 100 MG DAILY NEEDED PRN 01/18 0830 AC PO Morphine Sulfate 0.5 MG Q6 PRN 01/17 0400 AC IV Ondansetron HCl 4 MG .STK-MED ONE 01/21 0011 DC PO 01/21 0012 Ondansetron HCl 4 MG ONCE ONE 01/20 2345 DC 01/21 PO 01/20 2346 0012 Oxycodone HCl 5 MG Q6 PRN 01/17 0400 AC 01/20 PO 1840 Potassium Chloride 40 MEQ ONCE ONE 01/21 1300 DC 01/21 PO 01/21 1301 1339 Senna 187 MG AT BEDTIME PRN 01/18 0830 AC 01/18 PO 1036 Silver Sulfadiazine 1 JANEY DAILY 01/18 1120 AC 01/21 TOP 0924 Sodium Bicarbonate 75 MEQ Q4H 01/17 1330 DC 01/21 Sodium Chloride 1,000 ML IV 0924 Assessment/Plan Assessment: 26-year-old male with past medical history significant for previous suicide attempts in the past, last attempt in 2015, 1 attempt to hang himself in the past, was brought into emergency department after another suicide attempt this after midnight. Opiate overdose suspected. He was missing the whole day on , patient was found wondering in the street on Thursday morning by his mother who took him home and where he spent the whole day on Thursday sleeping , patient's family decided to bring him to ED for evaluation after they noticed multiple skin sloughing. Vitals in emergency department, patient afebrile, no tachypnea, no tachycardia, systolic blood pressure ranging from 108-152 and diastolic 60-100, oxygen saturation of 96-97% on room air. Labs pertinent WBC 6.6, H&H 14.7/45, platelet 140, sodium 133, potassium 4.2, BUN/creatinine 3.9/3.3, lactic acid 1.2, AST 698, ALT 191, creatinine kinase more than 32,000, alkaline phosphatase 64, INR 1.09, toxicology positive for opioids. UA negative. #Sucidal attempt Patient has lot of stressers and attempted to commit sucide. he tired to overdose with olanzapine, appropriate on and Percocet with suicidal intent. He denies any sucidal ideation right now. * continue sitter * pt cannot leave ama * appreciate psych rec * plan to discharge pt to psych unit tomorrow CK level 6850 #Rhabdomyolysis and Acute kidney injury Most likely secondary to musculoskeletal injury leading to Acute kidney injury. It seems like patient has already gone into acute tubular necrosis given the BUN /creatinine ratio of less than 20. * IV hydration stopped * K 3.5 today * Monitoring ins and outs * Following CK 6850, BUN 8 , Cr .7 trending down #Transaminitis Elevated ASt and Alt trending down 120 and 81 #swelling of left shoulder * CAT scan done in ER and U/S done negative * Apply Silvadene cream to open skin areas 3 times a day * serial girth measurement of upper left extremity 36cm still pretty swollen and brusied * monitoring upper left extremity pulses #constipation * colace 100mg prn * senna 187mg bedtime #Bipolar disorder Holding psychotropic medications for now as per psy recc takes bupropion 75 mg daily and zyprexa 15mg at home #Penile Swelling PT noticed that his penis was swollen after waking up yesterday. there is no penile discharge or urinary difficulty. he denies any trauma to the area.Unclear etiology. * Uro Consulted * No need for intervention at this time. No imaging required as per uro reccs #Acute blood loss anemia Pts Hb dropped from 14 to 7.9. Iv fluids vs hematoma of left arm * will monitor closely and transfuse if hb <7 * H&H 8.0 and 24 trending up Problem List: 1. SVEN (acute kidney injury) 2. Opiate abuse, episodic 3. Abrasions of multiple sites 4. Suicide attempt 5. Rhabdomyolysis Pain Ratin Pain Location: lsft upper extremity Pain Goal: Pain 4 or less Pain Plan: none Tomorrow's Labs & Rationales: none DAXA VIEIRA,BLANK 01/21/17 1243: Attending MD Review Statement Attending Statement Attending MD Statement: examined this patient, discuss w/resident/PA/RENEWABLE ENERGY TRADER, agreed w/resident/PA/RENEWABLE ENERGY TRADER, reviewed EMR data (avail), discussed with nursing, discussed with case mgmt, reviewed images, amended to note Attending Assessment/Plan: Patient seen and examined, he denies any aches or pains currently. His left upper extremity is still pretty swollen and bruised. His CK is improving. Vital Signs Date Time Temp Pulse Resp B/P B/P Pulse O2 O2 Flow FiO2 Mean Ox Delivery Rate 01/21 623 97.7 80 18 120/70 96 Room Air 01/21 0622 98.0 100 14 122/70 97 Room Air 01/20 2231 99.1 63 20 122/58 96 Room Air 01/20 1458 98.7 83 20 132/60 96 Room Air on exam; aox3, nad cv; s1, s2, rrr resp; clear abd; soft, nt, bs+ ext; no edema. skin; + bruising, edema lue. Strong radial pulse felt in lue. Laboratory Tests 01/21 725 Chemistry Sodium (137 - 145 mmol/L) 139 Potassium (3.5 - 5.1 mmol/L) 3.5 Chloride (98 - 107 mmol/L) 102 Carbon Dioxide (22 - 30 mmol/L) 34 H Anion Gap (5 - 16) 3 L BUN (9 - 20 mg/dL) 8 L Creatinine (0.7 - 1.2 mg/dL) 0.7 Estimated GFR (>60 ml/min) > 60 BUN/Creatinine Ratio (7 - 25 %) 11.4 Total Bilirubin (0.2 - 1.3 mg/dL) 0.5 Direct Bilirubin (< 0.4 mg/dL) 0.1 AST (17 - 59 U/L) 120 H ALT (21 - 72 U/L) 81 H Alkaline Phosphatase (< 127 U/L) 37 Creatine Kinase (55 - 170 U/L) 6850 H Total Protein (6.3 - 8.2 g/dL) 4.5 L Albumin (3.5 - 5.0 g/dL) 2.5 L Hematology CBC w Diff NO MAN DIFF REQ WBC (4.8 - 10.8 /CUMM) 5.3 RBC (4.70 - 6.10 /CUMM) 2.63 L Hgb (14.0 - 18.0 G/DL) 8.0 L Hct (42 - 52 %) 24.0 L MCV (80.0 - 94.0 FL) 91.2 MCH (27.0 - 31.0 PG) 30.4 RDW (11.5 - 14.5 %) 12.9 Plt Count (130 - 400 /CUMM) 127 L MPV (7.4 - 10.4 FL) 9.2 Gran % (42.2 - 75.2 %) 56.3 Lymphocytes % (20.5 - 51.1 %) 29.8 Monocytes % (1.7 - 9.3 %) 9.6 H Eosinophils % (0 - 5 %) 4.0 Basophils % (0.0 - 2.0 %) 0.3 Absolute Granulocytes (1.4 - 6.5 /CUMM) 3.0 Absolute Lymphocytes (1.2 - 3.4 /CUMM) 1.6 Absolute Monocytes (0.10 - 0.60 /CUMM) 0.5 Absolute Eosinophils (0.0 - 0.7 /CUMM) 0.2 Absolute Basophils (0.0 - 0.2 /CUMM) 0 PUBS MCHC (33.0 - 37.0 G/DL) 33.3 A/P; 26-year-old male with past medical history significant for bipolar disorder, multiple suicide attempts who was admitted with drug overdose with psych medications, opiates, and adenomyosis as well as acute renal failure. Acute renal failure is resolved with IV fluids. CK levels are coming down on IV fluids. At this point we'll stop the IV fluids and monitor his CK. Per psychiatry, psychotropic medications are held. We will replete his potassium. Patient has also developed hematoma off the left upper extremity. Had been seen by orthopedic and no compartment syndrome was appreciated. Also had a negative upper extremity DVT ultrasound. Patient has good and strong radial pulse in that upper extremity. At this point we'll continue the current management and likely he can be discharged to Inpatient Psychiatry tomorrow. Patient cannot leave AGAINST MEDICAL ADVICE per psychiatry. H&H relatively stable.
[2017-01-21] MEDS ORDERED: SILVADENE20 GM TOP (12:33)
--- NOTE | 2017-01-21 12:37 | Patient Discharge Instructions ---
Discharge Instructions General Discharge Information You were seen/treated for: suicide attempt rahbdomyolisis Special Instructions: 1. Con't oral hydration 2. Con't following care with our Psychiatric team 3. If you hav pain, lack of pulses, decreased strength or feeling in your l. arm then let one of the medical staff know. 4. Keep l. arm elevated Diet Continue normal diet: Yes Activity Activity Self Limited: Yes Acute Coronary Syndrome Inclusion Criteria At DC or during hospital stay patient has or had the following: ACS DIAGNOSIS No Discharge Core Measures Meds if any: Prescribed or Continued at Discharge Meds if any: NOT Prescribed or Continued at Discharge Congestive Heart Failure Inclusion Criteria At DC or during hospital stay patient has or had the following: CHF DIAGNOSIS No Discharge Core Measures Meds if any: Prescribed or Continued at Discharge Meds if any: NOT Prescribed or Continued at Discharge Cerebrovascular accident Inclusion Criteria At DC or during hospital stay patient has or had the following: CVA/TIA Diagnosis No Discharge Core Measures Meds if any: Prescribed or Continued at Discharge Meds if any: NOT Prescribed or Continued at Discharge Venous thromboembolism Inclusion Criteria VTE Diagnosis No VTE Type NONE VTE Confirmed by (Test) NONE Discharge Core Measures - Per Current guidelines, there needs to be overlap - treatment for the first 5 days of Warfarin therapy. - If discharged on Warfarin prior to 5 days of - overlap therapy, the patient will need to be - assessed for post discharge needs including - *Post discharge parental anticoagulation - *Warfarin and/or parental anticoagulation education - *Follow up date to check INR post discharge At least 5 days overlap therapy as Inpatient No Meds if any: Prescribed or Continued at Discharge Note: Overlap Therapy is Warfarin and Anticoagulant Meds if any: NOT Prescribed or Continued at Discharge
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
[2017-01-21 13:37] VITALS: BP 122/70
== END 2017-01-21 15:42 | DRG 812 ==
LOC: ERH 18:42 → ERHI 23:03 → 2NA 23:03 → ENRESERV 01-17 01:12 → 2NA 01-17 02:42 → ENPENDDIS 01-21 13:21 → 2NA 01-21 15:42
PROVIDERS: Physician Assistant; Student in an Organized Health Care Education/Training Program; ADMIT Internal Medicine
DX: T43.592A Poisoning by other antipsychotics and neuroleptics, intentional self-harm, initial encounter (principal); F33.2 Major depressive disorder, recurrent severe without psychotic features; E87.1 Hypo-osmolality and hyponatremia; N17.9 Acute kidney failure, unspecified; D62 Acute posthemorrhagic anemia; T43.292A Poisoning by other antidepressants, intentional self-harm, initial encounter; T79.6XXA Traumatic ischemia of muscle, initial encounter; T39.1X2A Poisoning by 4-Aminophenol derivatives, intentional self-harm, initial encounter; Y92.009 Unspecified place in unspecified non-institutional (private) residence as the place of occurrence of the external cause; E86.0 Dehydration; F41.9 Anxiety disorder, unspecified; E87.6 Hypokalemia; N48.89 Other specified disorders of penis; S40.012A Contusion of left shoulder, initial encounter; S70.312A Abrasion, left thigh, initial encounter; K59.00 Constipation, unspecified; F17.200 Nicotine dependence, unspecified, uncomplicated
CPT/HCPCS: 2NASP; ERO; 36415; 80307; 81001; 82436; 87086; 93005; 93010; 96360; 96361; 99291; G0480; J3101

== ENCOUNTER 2017-01-21 12:37 | Inpatient (IN) | payer OTHER ==
[~2017-01-21] VITALS: Ht 172.7 cm; Wt 64.9 kg
[~2017-01-21 12:37] MED LIST: BUPROPION HCL75 M1 PO; OLANZAPINE15 M1 PO; OXYCODONE-ACET1 EACH PO; SILVADENE20 GM TOP
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
[2017-01-21 16:15] VITALS: BP 146/74
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
[2017-01-21 19:50] VITALS: BP 147/68
--- NOTE | 2017-01-22 04:28 | NUR ---
SLEPT WELL AWAKE TO BATHROOM ANS WASH UP PT. SWEATING.
[2017-01-22 08:47] VITALS: BP 131/71
--- NOTE | 2017-01-22 11:31 | SOCIAL WORKER PROG NOTE PSYCH ---
Social Work Progress Note Progress Note Pt completed psychosocial evaluation. He has been attendin groups today, and reported he wants to understand how to overcome depression, as he stated he has felt this way since 2nd grade. He states his current girlfriend is and she is supportive, he lives with his brother who he also reports is a support. He has an 8 year old child, and her Mother lives with his Mother. Again, he reports he just cant deal with motonony and feels hopeless, and depressed "all the time". Acknowledges he needs more treatment, as he is seen at [facility]. Pt needs a referral for a PCP.
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
[2017-01-22 12:19] VITALS: BP 155/71
--- NOTE | 2017-01-22 13:38 | NUR ---
PT IS COMPLIANT AND COOPERATIVE. MOOD IS STABLE WITH A FULL RANGE OF AFFECT. PT HAS NOT EXPRESSED ANY SI AT THIS TIME, C/O PAIN IN SHOULDER/ARM. PT IS PRESENT ON THE UNIT AND INTERACTING WELL WITH PEERS AND STAFF. PT IS ATTEDNING GROUPS. VITALS ARE STABLE, APPETITE IS GOOD.
--- NOTE | 2017-01-22 14:22 | SOCIAL WORKER TX PLAN PSYCH ---
Treatment Plan - Please Document: - Evidence that there is ongoing collaboration between - the patient and the interdisciplinary team, - including the patient's active participation and - responsibility for engaging in the treatment regimen, - and that the treatment plan is individualized and - relevant to the patient's conditions. - Treatment plan should reflect documentation indicating - that all active therapeutic efforts are included. Strengths/Capabilities: Supportive family wants to work Physical Limitations (Interventions): History of recurrent depression DSM5/PS Stressors/Medical Prob Diagnosis' (DSM 5, Stressors, Medical): F33.2 Major Depressive Disorder, recurrent, severe Left upperextremity injury Rhabdomyolysis Acute Kidney Injury Treatment Team - Responsibilities of members of the treatment team include: - Medication Management- MD or DIE LAY OUT WORKER - Medication Administration and Monitoring- Nurse - Group Therapy- Occupational Therapist - 1:1 Therapy,Disch Planning,family involvement-Seat Joiner
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
--- NOTE | 2017-01-22 14:37 | PN- Att Addend ---
Attending Addendum Attending Brief Note This is an interval note for the patient transferred to psychiatry. This is a 26-year-old young male with a past medical history of bipolar disorder, suicidality and previous suicidal attempt who was on the medical service from January 16 to March 24. He was treated for an acute overdose, large shoulder swelling hematoma and subsequent rhabdomyolysis. He was hydrated aggressively until his CPK came down to less than 5000. He was also evaluated for penile swelling (negative urology eval) and anemia which were thought to be all dilutional. He is now stable being transferred to inpatient psychiatry for ongoing psychiatric care.
[2017-01-22 16:22] VITALS: BP 133/75
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
[2017-01-22 20:09] VITALS: BP 133/95
--- NOTE | 2017-01-22 21:31 | NUR ---
Patient is calm and coopertaive. Patient test limits, boundaries at times. Affect full range, mood stable. Denies SI/HI/VH/AH currently. Wound dressing on buttick changed. Shoulder and knee dressing C/D/I. Attending groups, appetite good. Speech clear and coherent.
--- NOTE | 2017-01-22 21:48 | ULTRASOUND REPORT ---
EXAMINATION: US SCROTUM CLINICAL INFORMATION: Penile pain and swelling. COMPARISON: None TECHNIQUE: A sonogram of the scrotum was performed assessing belle-scale appearance and color Doppler flow. FINDINGS: A routine scrotal ultrasound was performed and demonstrates normal size, echogenicity, and vascularity of the testicles bilaterally with the right testicle measuring 3.5 and the left testicle measuring 3.7 cm maximal longitudinal dimension. No focal intra testicular mass lesions are identified. Technologist suggest increased vascularity bilaterally, however this is symmetric in appearance and the epididymides do not appear hypervascular although the right epididymal head is mildly enlarged. No definite hydrocele. IMPRESSION: 1. Symmetric appearing testicles bilaterally without focal masses. 2. Prominent right epididymal head without hypervascularity. Clinical correlation recommended.
[2017-01-23 08:15] VITALS: BP 128/83
[2017-01-23 08:31] LABS: ABSOLUTE BASOPHIL COUNT 0 /CUMM (0.0-0.2); ABSOLUTE EOSINOPHIL COUNT 0.2 /CUMM (0.0-0.7); ABSOLUTE GRANULOCYTE CT 4.8 /CUMM (1.4-6.5); ABSOLUTE LYMPH COUNT 1.6 /CUMM (1.2-3.4); ABSOLUTE MONOCYTE COUNT 0.8 /CUMM (0.10-0.60); BASOPHIL % 0.6 % (0.0-2.0); EOSINOPHIL % 3.1 % (0-5); GRANULOCYTE % 63.6 % (42.2-75.2); MEAN CORPUSCULAR HGB 30.7 PG (27.0-31.0); MEAN CORPUSCULAR HGB CONC 33.2 G/DL (33.0-37.0); MEAN CORPUSCULAR VOLUME 92.5 FL (80.0-94.0); MEAN PLATELET VOLUME 9.4 FL (7.4-10.4); RBC DISTRIBUTION WIDTH 13.3 % (11.5-14.5); WHITE BLOOD CELL COUNT 7.6 /CUMM (4.8-10.8)
[2017-01-23 10:34] LABS: HEMATOCRIT 30.4 % (42-52); PLATELET COUNT 253 /CUMM (130-400); RED BLOOD CELL CT 3.29 /CUMM (4.70-6.10)
--- NOTE | 2017-01-23 11:12 | NUR ---
PT ATTENDED MORNING MEETING AND STATED HE PLANNED TO USE HUMOR TO ENJOY HIS DAY. CONSULTS CALLED TO DR ANN FOR RENAL AND DR HAYES FOR UROLOGY. PT STATED HE WAS EXPERIENCING INCREASE IN PAIN AND SWELLING TO HIS PENIS AND SCROTUM. WHEN ASKED HE DENIED ANY THOUGHTS OF SUICIDE OR SELF HARM AT THIS TIME
[2017-01-23 12:12] VITALS: BP 124/64
--- NOTE | 2017-01-23 15:07 | SOCIAL WORKER PROG NOTE PSYCH ---
Social Work Progress Note Progress Note Jelani attended the 9am meeting today, but missed a couple of groups following. He reported feeling tired. Talked about his willingness to try Lovilia if all is cleared medically. Talked about trying IOP as an aftercare plan and the benefits that going to IOP would provide. Increased medication mangement, especially if on Lovilia, support for his depression and SI, increased structure. He intially talked about how he didn't want to do it and he's only interested in work right now and that's his priority. After speaking more about it, it sounded as if he would think about it. I shared that we are looking at discharge for next Thursday possibly. He stated that he's not interested in being here that long and he's about to sign "a 3 day paper." I told him he has the right to do that, but if it was signed today, we still legally have the right to decide if he needs to be here through Thursday, because it doesn't count the weekends. He stated that he's done and I've just ruined his whole day. He then got up and stated "I'm not having it" and walked out. He started pacing on the unit, punching fernandez. Nursing and I attempted to redirect, while security came down. He continued to pace and threatened security, "one of us in going to be on the ground." Dr. Mulligan saw Jelani and spoke with him at that point.
--- NOTE | 2017-01-23 15:10 | CP SOUTH PROGRESS NOTE PSYCH ---
Psych (Inpt) Progress Note Progress Note Include the following elements, when applicable: Involvement in the active treatment of the patient with behavioral observations of the patient and the patient's response to the treatment. Review of the ongoing treatment process in the context of the treatment plan. Indication of how multi-disciplinary staff members are carrying out the treatment plan. Plans for future interventions and recommendations for revision of the treatment plan. Liaison with other physicians/providers. Progress Note: PSYCHIATRIST NOTE, 01/23/2017: I discussed this patient's progress to date, current mental status, treatment and discharge planning with staff team today in the daily morning ITTM and also met with him again myself in individual session. I had spoken with the army helicopter pilot covering for consults today, Dr. Austin, earlier today about the question of the safety of beginning a Tijeras carbonate trial at this point in terms of stress on his kidneys; though renal functions are now WNL CPK is still several thousand (actually 2,695 this morning); Dr. Austin told me that it would be advisable to hold off on introducing Tijeras until the CPK has returned to normal range but thereafter there should be no added risk related to the ingestion [employer]. I will be repeating CPK on 01/26/2017. Shortly prior to our session (in fact immediately before it--security guards were still milling about in the hallway outside my office) patient had experienced a sudden outburst of angry emotion after it was suggested to him that his planned discharge date might be 01/28/2017; he had been counting on possibly leaving on Thursday, 2016 (probably getting that impression from something I had said) and staying those two more days next week seemed "just too long" for him to be thus confined here on [facility]. I reassured him that if he returned to the [id number] and behavior in the milieu/patient community he had been demonstrating up until a short while ago he would certainly be "allowed" to leave early next week though we might try to make the case that he stay voluntarily for a little while longer and might "recommend" this. On the other hand, patient had already spent several days up on the medical floor prior to being transferred down to [facility] , his stay in hospital actually beginning on 01/17/2017, almost a week now; Thursday will make it a total of 10 days in hospital. Patient calmed considerably and seemed satisfied that, barring cxr-[id number] behavior over the weekend, the decision to leave on 01/26/2017 would be his, though if we thought his stood to benefit significantly from a longer LOS though not suicidal/homicidal the departure could be AMA. I plan to increase the regular dose of Zyprexa tonight from 15mg to 20mg HS with continuation of PRN Zyprexa (and a back up to the latter of low dose Seroquel) given that we are not able to start the Tijeras as yet. Patient reports the Seroquel, 25mg really helping him to get to sleep at night.
[2017-01-23 16:20] VITALS: BP 132/76
--- NOTE | 2017-01-23 16:31 | NUR ---
SPOKE WITH DR HAYES. DR HAYES WILL NOT BE MAKING ON SITE CONSULTATION AT THIS TIME. REVIEWED PT STATUS AND SCROTAL ULTRASOUND RESULT. DUE TO PT CONTINUED C/O OF INTERMITTENT "SHARP" PENILE PAIN, URINE CULTURE ORDERED. NO OBVIOUS SIGNS OF INFLAMMATION TO PENIS OR SCROTUM. PT MADE AWARE TO REPORT ANY SKIN COLOR PIGMENTATION CHANGE OR SWELLING PER DR HAYES AT THAT TIME ABT LIKE "CIPRO OR BACTRIM" MAY BE NEEDED TO TX POSSIBLE EPIDIDYMIS. PT ALSO EDUCATED ON CLEAN CATCH URINE CULTURE ORDERED. PT VERBALIZED UNDERSTANDING.
--- NOTE | 2017-01-23 18:27 | NUR ---
PT IS CALM, COOPERATIVE WITH STAFF AND PEERS, AND COMPLIANT WITH UNIT RULES. OFTEN IN MILIEU, INTERACTING WELL WITH OTHERS. MOOD IS STABLE, AFFECT APPEARS EUTHYMIC TO FULL RANGE, COMMUNICATION IS ORGANIZED AND APPEARS NORMAL IN ALL RESPECTS, AND APPETITE IS NORMAL. PT DENIES SI AT THIS TIME.
[2017-01-23 20:03] VITALS: BP 129/67
--- NOTE | 2017-01-24 00:35 | Event Note ---
Event Note Event Note: I was called because patient was complaining of pain at tip of Urethra, sharp stabbing pain especially after urination, non radiating, no urethral discharge. Denied abdo pain, suprapubic pain, penile lesions, perineal pain. Penile edema has improved. On exam : no discharge, no ulcer, no penile or scrotal swelling. Inguinal LNpathy present bilaterally. Assessment r/o UTI : UA and U/c Urine GC chlamydia Will follow up on UA : if required start Abx. Pain control. Encourage oral hydration.
--- NOTE | 2017-01-24 07:12 | NUR ---
PATIENT SLEPT MOST OF THE NIGHT, SLEEPING AFTER DR. CARTER CAME TO UNIT TO EXAMINE HIM, DUE TO HIS C/O INCREASED PAIN IN HIS PENIS; EXAMINATION REVEALED NO SWELLING OR OTHER ACUTE EVENT; URINALYSIS AND STI TESTING ADDED ON; ANTIBIOTICS MAY BE ADDED DEPENDING ON LAB RESULTS.
[2017-01-24 08:10] VITALS: BP 129/71
[2017-01-24 12:01] VITALS: BP 125/76
--- NOTE | 2017-01-24 12:37 | NUR ---
Pt is present within the milieu, mood is stable with full range affect, no issues noted, is appropriate with peer and staff, calm, cooperative and pleasant overall, attened planning meeting. Left hip, left shoulder & right knee: Cleaned with normal saline, silvadene cream applied to open area per Dr. Charles's MD note, minimal/scant/appropriate serosanguineous (on L hip & R knee), + stage of healing present, no s/sx of infection, no complaints of pain by pt, educated on hygiene during healing process and verbalized understanding.
[2017-01-24 15:32] VITALS: BP 138/75
--- NOTE | 2017-01-24 19:25 | NUR ---
PT REQUIRED MULTIPLE REDIRECTIONS IN REGARDS TO HIS INAPPROPRIATE CONVERSATION IT PERTAINED TO HIS OPINION OF HOMOSEXUALITY, PROFANITY AND PERSONAL HYGEINE/INTIMACY. PT SEEMED TO HAVE A GOOD VISIT WITH HIS FAMILY. PTS IRRITABILITY DECREASED AFTER VISITORS LEFT. PT HAS DENIED ANY THOUGHTS OF SI AT THIS TIME.
[2017-01-24 20:59] VITALS: BP 140/68
--- NOTE | 2017-01-24 23:31 | CP SOUTH PROGRESS NOTE PSYCH ---
Psych (Inpt) Progress Note Progress Note Progress Note: SUBJECTIVE: Pt stated that he id going ok with med changes, feels the seroquel gives him "really vivid dreams, but thats cool, I like it...I like dreaming." Pt reports some continues lower abd pain with urination. Denies discolored urine. Discussed rechecking CPK on Mon in order to consider starting Li per Renal consult. Denies SI/HI/AVH/SIB. Denies other physical complaints. Eating and sleeping well. OBJECTIVE: Per nursing, pt slept well overnight. Examined by Dr Templeton for increased penile pain, UCx, STD testing pending, may start abx. Adherent with meds and staff instructions, in behavioral control. MEDS: Current Medications Sig/Chula Start time Last Medication Dose Stop Time Status Admin Acetaminophen 650 MG Q6-PRN PRN 01/22 1715 AC 01/24 (Tylenol) 2300 Cyanocobalamin 1,000 MCG 0800 01/23 0800 AC 01/24 (Vitamin B12) 0836 Olanzapine 20 MG 2200 01/23 2200 AC 01/24 (Zyprexa) 2145 Olanzapine 5 MG Q6P PRN 01/23 1515 AC (Zyprexa) Quetiapine Fumarate 25 MG Q2H PRN 01/23 1515 AC 01/24 (Seroquel) 2146 Silver Sulfadiazine 1 JANEY Q8P PRN 01/23 2315 AC 01/23 (Silvadene Cream 01/28 2314 2309 50GM ) Vital Signs Date Time Temp Pulse Resp B/P B/P Pulse O2 O2 Flow FiO2 Mean Ox Delivery Rate 01/24 2059 98.4 93 140/68 / 1532 88 138/75 / 1201 83 125/76 /08 0810 96.6 72 129/71 01/23 2003 97.2 73 129/67 /07 1620 77 132/76 / 1212 74 124/64 /07 0815 97.2 71 128/83 /2008 96.8 98 133/95 07/ 1622 75 133/75 07/ 1219 67 155/71 07/06 0847 96.7 75 131/71 07/ 1950 97.1 66 147/68 07/ 1615 98.6 74 146/74 LABS: Microbiology Date/Time Procedure - Status Source Growth 01/23 1700 GC DNA Probe - RECD URINE ROUT 01/23 1700 Chlamydia DNA Probe (KAY) - RECD URINE ROUT 01/23 1700 Urine Culture - RES URINE ROUT MSE: GEN: A&O, watching TV, visible on unit, appears younger than stated age, good eye contact, NAD. SPEECH: moderate rate, volume, fluent MOTOR: no tics, tremor, stereotypy or abnormal movements MOOD: "good taday" AFFECT: calm, congruent, good range, nonlabile, well-related TP: logical, linear, goal-directed TC: denies SI/HI/AVH,SIB, no apparent delusions, paranoia, grandiosity, obsessions, ruminations COG: no apparent deficits in memory, attention, concentration J/I: fair/fair A&P: 26 yo M with MDD doing well, med adherent, in beh control, with improvement in mood, no SI/HI/AVH/SIB. -cont meds above -maintain safety, vs tid, q15 min checks -f/u labs/recc for penile pain, ?abx, pain mgmt -cont plan/dispo as per primary team
--- NOTE | 2017-01-25 06:17 | NUR ---
PT WITH VISITS BY EX(?) AND HIS DAUGHTER AND GIRLFRIEND. PT CHILD-LIKE, BUT IN CONTROL. PT SLEPT.
[2017-01-25 08:32] VITALS: BP 111/75
[2017-01-25 12:26] VITALS: BP 137/75
--- NOTE | 2017-01-25 12:49 | NUR ---
PT IS SOCIAL AND APPROPRIATE WITHIN THE MILIEU WITH PEERS AND STAFF, ATTENDING GROUPS - REPORTED IN PLANNING + SLEEP AND OK MOOD WITH A GOAL TO ENJOY THE DAY, VSS, MOOD STABLE WITH FULL RANGE AFFECT.
[2017-01-25 15:12] VITALS: BP 105/62
--- NOTE | 2017-01-25 18:25 | CP SOUTH PROGRESS NOTE PSYCH ---
Psych (Inpt) Progress Note Progress Note PROGRESS NOTE: SUBJECTIVE: Pt stated he is doing well today, remembered writers name from yesterday. Feels meds are working well, denies s/e. Enjoying family visit now. Penile pain is improving but still wakes him up, reqesting motrin but discussed kidney issues related to elevated CPK. Tylenol not helping. Agreed to try topical lidocaine jelly prn. Discussed lab result (GC-, UCx pend). Aware of lab draw tomorrow am to eval starting Li per Renal consult. Denies SI/HI/AVH/ SIB. Denies other physical complaints. Eating and sleeping well. OBJECTIVE: Per nursing, pt slept well overnight. Vists from family last night. Adherent with meds and staff instructions, in behavioral control. MEDS: Current Medications Sig/Chula Start time Last Medication Dose Stop Time Status Admin Acetaminophen 650 MG Q6-PRN PRN 01/22 1715 AC 01/24 (Tylenol) 2300 Cyanocobalamin 1,000 MCG 0800 01/23 0800 AC 01/25 (Vitamin B12) 0925 Olanzapine 20 MG 2200 01/23 2200 AC 01/24 (Zyprexa) 2145 Olanzapine 5 MG Q6P PRN 01/23 1515 AC (Zyprexa) Quetiapine Fumarate 25 MG Q2H PRN 01/23 1515 AC 01/24 (Seroquel) 2146 Silver Sulfadiazine 1 JANEY Q8P PRN 01/23 2315 AC 01/23 (Silvadene Cream 01/28 2314 2309 50GM ) VITALS: Vital Signs Date Time Temp Pulse Resp B/P B/P Pulse O2 O2 Flow FiO2 Mean Ox Delivery Rate 01/25 1512 90 105/62 01/25 1226 95 137/75 07/ 0832 97.0 84 111/75 / 2059 98.4 93 140/68 LABS: CG-, UCx NG2D MSE: GEN: A&O, visiting family, appears happy, cooperative, good hygeine, appears younger than stated age, good eye contact, NAD. SPEECH: moderate rate, volume, fluent MOTOR: no tics, tremor, stereotypy or abnormal movements MOOD: "Im doing great" AFFECT: happy, congruent, good range, nonlabile, well-related TP: logical, linear, goal-directed TC: denies SI/HI/AVH,SIB, no apparent delusions, paranoia, grandiosity, obsessions, ruminations COG: no apparent deficits in memory, attention, concentration J/I: fair/fair A&P: 26 yo M with MDD with elevated CPK d/t positional injury. Doing well today, med adherent, in beh control, with improvement in mood, no SI/HI/AVH/SIB. Feels meds are helping. -cont meds above -maintain safety, vs tid, q15 min checks -consider Li after CKP at baseline pre primary tm and renal -f/u labs/recc for penile pain, ?abx, pain mgmt -lidocaine 2% jelly for penile pain, deferring motrin while kindey injury in question -cont plan/dispo as per primary team
--- NOTE | 2017-01-25 19:06 | NUR ---
PT CAN BE INAPPROPRIATE ON THE UNIT AND CAN GET IRRITATED WITH STAFF DIRECTION. PT ARGUED WITH THIS MHW ABOUT WHAT WAS ALLOWED TO BE VEIWED ON THE TELEVISION. PT OFTEN TALKS BACK TO STAFF AND CAN BE RUDE AND VULGAR. THERE HAVE BEEN NO MAJOR ISSUES PERTAINING TO BEHAVIOR. PT DENIES ANY THOUGHTS OF SI WHEN ASKED BY STAFF.
[2017-01-25 20:31] VITALS: BP 131/78
--- NOTE | 2017-01-25 23:40 | NUR ---
VISIBLE IN THE COMMUNITY, INTERACTING WELL WITH OTHERS. PREOCCUPIED WITH HIS PENIAL DISCOMFORT AT TIMES. MED COMPLIANT AND COOPERATIVE.
[2017-01-26 08:16] VITALS: BP 130/64
[2017-01-26 12:46] VITALS: BP 126/63
--- NOTE | 2017-01-26 13:58 | NUR ---
PT IS COMPLIANT AND COOPERATIVE. MOOD IS STABLE WITH A FULL RANGE OF AFFECT. PT DENIES SI AT THIS TIME, C/O PAIN IN SHOULDER/ARM. PT WAS ISOLATIVE IN ROOM THIS MORNING, OUT OF BED MORE IN THE AFTERNOON. PT INTERACTING WELL WITH PEERS AND STAFF. PT IS ATTENDING SOME GROUPS. VITALS ARE STABLE, APPETITE IS GOOD.
--- NOTE | 2017-01-26 14:47 | SOCIAL WORKER PROG NOTE PSYCH ---
Social Work Progress Note Progress Note Dr. Saba and I met with Jelani together today. Jelani started the meeting by apologizing for his behavior on Thursday, stating he didn't know why he acted out like that. He stated that he holds things in and then eventually explodes. Working on developing other coping skills. Dr. Saba informed him that he would like to discharge him tomorrow, but a family meeting is critical for that plan. Jelani was agreeable to having his Brother in, but is concerned about his Brother's work schedule. He asked if Mom could be available or his girlfriend and Brother via phone? I told him that if his Brother was only available via phone that was ok. He plans to call him to see. Mood seemed calm and pleasant today. He asked when he could start [place]? Dr. Saba explained that kidney function needs to improve before starting and it can be done on an outpatient basis. He currently denies any SI/ HI, rates anxiety and sadness at a 0 (1-10, 10 being worst). Denies feeling hopeless, helpless, and guilty. Reports good sleep and a good appetite. Talked about following up in an IOP. He would prefer a program in [place]. Talked about doing a referral to [facility]. He is worried about how it will work out with his work hours. Referral was filled out and faxed by Ozzy Waldron [facility]. Jelani spoke with his Brother who will be available for a phone conference late morning.
[2017-01-26 15:41] VITALS: BP 123/64
--- NOTE | 2017-01-26 15:49 | CP SOUTH PROGRESS NOTE PSYCH ---
Psych (Inpt) Progress Note Progress Note Include the following elements, when applicable: Involvement in the active treatment of the patient with behavioral observations of the patient and the patient's response to the treatment. Review of the ongoing treatment process in the context of the treatment plan. Indication of how multi-disciplinary staff members are carrying out the treatment plan. Plans for future interventions and recommendations for revision of the treatment plan. Liaison with other physicians/providers. Progress Note: Medication list reviewed. Dr. Bennett's notes reviewed. Case and treatment plan discussed in team meeting. Staff reports that the patient became very angry on Thursday when a discharge date of 01/28/17, was discussed. He punched a wall. Area Manager has advised we should avoid lithium until CK normalizes. CK was high at 358 and LDH was high at 947. BUN/creatinine were normal. Patient seen at 1:52 PM with social media executive, Adina. Patient apologized to Adina for his behavior on Thursday. Patient reports he is in a pretty good mood right now. Affect is calm and euthymic. Rates sad mood and anxiety both 0/10. Denies feeling hopeless, helpless, worthless or guilty. Denies active and passive suicidal ideation. Denies homicidal ideation. Denies auditory and visual hallucinations. He believes that the family of a murder victim is out to get him, although patient was acquitted. Patient is considering getting out of [place] or getting out of [place]. Patient denies magical padron. Oriented 3. Reports he is sleeping well thanks to the Seroquel. States that he wakes up with cold sweats. Appetite is increased and I advised the patient that this could relate to Seroquel or olanzapine. Risks of metabolic syndrome from these medications were discussed, including weight gain, diabetes, hypertension and hyperlipidemia. Energy: reports he is pretty active. Patient states he will not need p.r.n. Seroquel for sleep after discharge. Tolerating medications well, without complaint. IMPRESSION: Slow progress. Continue present treatment plan. We will try to arrange a family meeting. Anticipate discharge tomorrow. Patient is now agreeing to attend an IOP in [place]. We will check repeat CK and LDH in the morning. A lithium trial may need to wait to be done on an outpatient basis.
--- NOTE | 2017-01-26 18:30 | NUR ---
PT IS CALM, COOPERATIVE WITH STAFF AND PEERS, AND COMPLIANT WITH UNIT RULES. OFTEN IN MILIEU, INTERACTING WITH OTHERS. MOOD IS STABLE, AFFECT APPEARS EUTHYMIC TO FULL RANGE, COMMUNICATION IS ORGANZIED AND APPEARS NORMAL IN ALL RESPECTS, AND APPETITE IS NORMAL. PT DENIES SI AT THIS TIME.
[2017-01-26 19:53] VITALS: BP 133/88
--- NOTE | 2017-01-27 07:40 | NUR ---
PT CHILD-LIKE, BUT IN CONTROL. PT SLEPT. PT IS SUPPOSED TO DC TODAY.
[2017-01-27 07:51] VITALS: BP 124/72
--- NOTE | 2017-01-27 08:32 | SOCIAL WORKER PROG NOTE PSYCH ---
Social Work Progress Note Progress Note Called [facility] and left a message for his therapist Audi Bill. Met with Jelani who informed me that his Brother would be available between 10-1030 for a phone conference. We tried called shortly after 10am, but his Brother didn't answer the phone the first couple of times we called. Jelani reported that he finds it difficult to rely on his Brother. Jelani and I talked for some time about his mood and managing his negative thoughts and negative self talk. He talked about how he bottles things up over time and then gets resentful and angry later. During our discussion he expressed some negative self statements. Encouraged him to reframe them. He stated he "sucked" at communicating. He mentioned that his girlfriend has difficulty in their relationship due to him not communicating. After some discussion, Jelani's Brother contacted us and we were able to proceed with the conference call. Gigi didn't seem to have any safety concerns. He feels that Jelnai won't do this again and that he's ready to move forward. Shared that we are trying to get Jelani in [facility] and that the support and structure afterwards would be helpful. Gigi didn't have much to say during the phone conference other than people care about his Brother and he has things to live for. Informed him that he will be discharged later this afternoon and that his girlfriend is picking him up. After the phone call, Jelani and I also talked about receiving VNS services to manage his medications for awhile. Jelani refused stating he didn't have time to wait around for the nurse to come to his house due to work and things he needs to do. Talked about the benefit it could provide on a temporary basis, but he still refused. Called the dye and chemical coordinator at [facility] and spoke with her about the referral. She shared that their concern was the lethality of his attempts and that they would like him to have VNS at least daily with a lock box. I told her Jelani had refused this, but I will attempt to speak with him again. Jelani continued to refuse, despite it being a condition of getting into IOP. At that point we determined that he will follow up with [facility]. He has an appt. he said scheduled with his ELECTRONIC IMAGING SYSTEM OPERATOR there on Thursday. He will touchbase with his therapist for their appt. later in the week. I tried calling [facility] several times to confirm the appt., but was only able to leave a message with intake. Gave Jelani the phone number for [facility] in case he changes his mind about services. He thanked me and shook my hand. Picked up shortly after 1pm.
--- NOTE | 2017-01-27 10:17 | NUR ---
PT IS SCHEDULED FOR DISCHARGE [place] [facility] [place]. HE LIVES WITH HIS BROTHER AND AGREES TO FOLLOW UP WITH [facility] OR [facility]. HE REPORTS AND DEMONSTRATES IMPROVEMENT IN HIS MOOD AND ABILITY TO FUNCTION. HE DENIES ANY THOUGHTS OF SUICIDE OR SELF HARM.PT IS GIVEN EDUCATION R/T MANAGING HIS MOOD DISORDER AND ON PREVENTING SUICIDE
[2017-01-27] MEDS ORDERED: OLANZAPINE10 M1 PO (11:16)
[2017-01-27] MEDS ORDERED: VITAMIN B-121000 MC3 PO (11:16)
[2017-01-27] MEDS ORDERED: LIDOCAINE HCL5 ML TOP (11:20)
--- NOTE | 2017-01-27 11:36 | Patient Discharge Instructions ---
Psych Discharge Inst General Discharge Information Reason for Admission: Status post overdose with multiple sequelae, including rhabdomyolysis and acute kidney injury. Psy Discharge Primary Diag+ Unspecified depression Psy Discharge Secondary Diag+ R/o bipolar d/o, depres'd S/p overdose S/p L shoulder hematoma S/p rhabdomyolysis S/p acute kidney injury S/p transaminitis Penile swelling S/p acute dilutional anemia Summary Tests/Major Procedures Random glucose 122. CO2 34 H Anion gap 3 L LDH 764 H CK 210 H T4, TSH WNL Urine drug screen +opiates/morphine RBC 3.29 L HgB 10.1 L HCT 30.4 L Lipid panel pending Testicular ultrasound 01/22/17: prominent right epidydimal head without hypervacularity. Clinical correlation recommended. EKG 01/16/17: Sinus tachycardia at 106, high QRT voltage, borderline EKG. Studies Pending at [place]: Lipid panel. Patient Instructions Contact Information Your Psychiatrist on [facility] was ARABELLA DUNLAP MD * If you are experiencing an emergency related to this hospitalization, please call [phone] to contact the treating psychiatrist or the psychiatrist-on- call. * To Request a copy of your medical records, please contact the Medical Records Department at [phone]. * To request results of studies pending at the time of discharge, please call [phone]. * Continue your Medications until directed to stop by your Healthcare provider. General Medication Information Please continue to take your new medications and your continued home medications , unless otherwise indicated on your discharge medication list, or unless directed by your MD or TIME STUDY STATISTICIAN to stop them. Special Instructions: See PCP for medical issues on discharge diagnosis and for lab/study findings summarized above. Stay away from drugs and alcohol. Advance Directives Does the Patient have Medical Advance Directives No/Refused further info Does Pt have Psychiatric Advance Directives? No/Refused further info Does Patient have a Designated Surrogate Decision Maker: No Information About Psychiatric Advance Directives Provided? Refused Discharge Plan Post Hospital Treatment Plan: [facility] outpatient treatment. Patient refused visiting nurse, which is a requirement to attend [facility].
--- NOTE | 2017-01-27 15:18 | CP SOUTH PROGRESS NOTE PSYCH ---
Psych (Inpt) Progress Note Progress Note Include the following elements, when applicable: Involvement in the active treatment of the patient with behavioral observations of the patient and the patient's response to the treatment. Review of the ongoing treatment process in the context of the treatment plan. Indication of how multi-disciplinary staff members are carrying out the treatment plan. Plans for future interventions and recommendations for revision of the treatment plan. Liaison with other physicians/providers. Progress Note: Case and treatment plan discussed in team meeting. Staff reports that the patient is doing well. Eager to leave. Says he is fine. Denies being suicidal. Appearing calm. Telephonic family meeting with brother is anticipated for today. Patient seen at 11:47 AM. Reports feeling great. Has no complaints. Affect is calm and euthymic. Reports mood is excellent. Rates sad mood 0/10 and anxiety 2/10. Denies feeling hopeless, hopeless, worthless or guilty. Denies active and passive suicidal ideation. Denies homicidal ideation. Denies auditory and visual hallucinations. Reports that the family of a murder victim is out to harm him. Reports sleep is okay and appetite is great. Reports energy is good. Tolerating medications well, without complaint. Feels ready and safe for discharge. IMPRESSION: Condition improved. Okay for discharge today to home and brother with follow-up at [facility].
--- NOTE | 2017-01-27 17:06 | DISCHARGE SUMMARY REPORT-PSYCH ---
Visit Information Visit Dates/Diagnosis' Admission Date: 01/21/17 Discharge Date: 01/27/17 Reason for Admission: Status post overdose with multiple sequelae, including rhabdomyolysis and acute kidney injury. Psy Discharge Primary Diag: Unspecified depression Psy Discharge Secondary Diag: R/o bipolar d/o, depres'd S/p overdose S/p L shoulder hematoma S/p rhabdomyolysis S/p acute kidney injury S/p transaminitis Penile swelling S/p acute dilutional anemia Hospital Course Significant Lab Findings: Random glucose 122. CO2 34 H Anion gap 3 L LDH 764 H CK 210 H T4, TSH WNL Urine drug screen +opiates/morphine RBC 3.29 L HgB 10.1 L HCT 30.4 L Lab HDL Cholesterol 33 mg/dL L 01/27/17 0620 Testicular ultrasound 01/22/17: prominent right epidydimal head without hypervacularity. Clinical correlation recommended. EKG 01/16/17: Sinus tachycardia at 106, high QRT voltage, borderline EKG. Course Complications: None. Consultations: Patient was seen by Dr. Keli Mccord for a follow up note. Please see her note for additional information. Patient was seen by Dr. Hauser regarding penile pain. Please see his note for more details. Apparently parts delivery driver advised not starting lithium until CK has returned to normal, which it has not. Allergies: Coded Allergies: diphenhydramine (From BENADRYL) (HIVES 01/16/17) Hospital Course/TX Response: The patient was monitored on the unit for safety and mood disorder. He participated in multi-modal treatments on the unit. Zyprexa dose was increased to 20 mg qhs. Seroquel was ordered prn and patient found it useful for insomnia but did not think he would need it after discharge. Patient was treated with cyanocobalamin. Lidocaine jelly was available prn for penile pain. Wellbutrin was not restarted. Patient was agitated on 01/23/17 when he was told discharge would be on 01/28/17. He subsequently calmed down and was later apologetic. Discharged was ultimately arranged for today, 01/27/17. Mood and affect have improved. Suicidal ideation has remitted. Progress note from date of discharge, 01/27/17: Case and treatment plan discussed in team meeting. Staff reports that the patient is doing well. Eager to leave. Says he is fine. Denies being suicidal. Appearing calm. Telephonic family meeting with brother is anticipated for today. Patient seen at 11:47 AM. Reports feeling great. Has no complaints. Affect is calm and euthymic. Reports mood is excellent. Rates sad mood 0/10 and anxiety 2/10. Denies feeling hopeless, hopeless, worthless or guilty. Denies active and passive suicidal ideation. Denies homicidal ideation. Denies auditory and visual hallucinations. Reports that the family of a murder victim is out to harm him. Reports sleep is okay and appetite is great. Reports energy is good. Tolerating medications well, without complaint. Feels ready and safe for discharge. IMPRESSION: Condition improved. Okay for discharge today to home and brother with follow-up at [facility]. Discharge HBIPS - Tobacco Use Treatment Offered Post DC Medications Offered: Not Applicable Post DC Tobacco Treatment Plan: Not Applicable - EtOH/Drug Use D/O Treatment Offered Post DC Medications Offered: NA-No EtOH/Drug Use D/O Post DC EtOH/SubAbuse TX Plan: NA-No EtOH/Drug Use D/O Metabolic Screening - Screen if on a Neuroleptic Medication - Metabolic screening should include: - Blood Pressure, BMI, Glucose or Hgb A1c, & a - Lipid profile from within the past 365 days. Metabolic Screening () Not Applicable, patient not on a neuroleptic. OR () Patient on a neuroleptic(s) . Enter below results for Glucose or Hemoglobin A1C, and lipid panel if obtained during the last 365 days. BMI: 21.700 Blood Pressure: 124/72 Laboratory Results (If applicable): Lab Cholesterol 131 MG/DL 01/27/1720 Cholesterol/HDL Ratio 4 % 01/27/17619 Glucose 122 mg/dL H 01/16/172006 HDL Cholesterol 33 mg/dL L 01/27/17619 LDL Cholesterol, Calc 75 mg/dL 01/27/17619 Triglycerides 118 mg/dL 01/27/17619 Discharge Instructions General Discharge Information Discharge Medications: Discharge Medications- (Dose, route, freq, indication): Called to [facility], [phone]: START taking these NEW Home Medications: Olanzapine Dose: ORAL, 2200 for clear Qty: 14 Sent to (Olanzapine) 20 MG 20 Milligram thoughts/stable moods Refills: 0 Pharm 1 TABLET Last Taken:01/26/17 Time:2200 Cyanocobalamin Dose: ORAL, DAILY @8 AM for Qty: 14 Sent to (Vitamin B-12) 1,000 1,000 Vitamin B-12 supplement Refills: 0 Pharm 1 MCG TABLET Microgram Last Taken:01/27/17 Time:0800 Lidocaine HCl Dose: On the skin, AT BEDTIME Qty: 1 Sent to (Lidocaine HCl) 2 % 1 Application as needed for PENILE Refills: 0 Pharm 1 JEL..ML. PAIN SCALE 1-3 (MILD) may self apply thin layer to penis tip at bedtime prn pain Last Taken:01/26/17 Time:1800 STOP taking these DISCONTINUED Home Medications: Silver Sulfadiazine Dose: On the skin, DAILY for abrasion (Silvadene) 1 % CREAM..G. 1 Application Reason Stopped: Not used Multiple Neuroleptics: ([x]) Not Applicable OR Document below three failed attempts at monotherapy, or a plan to taper to monotherapy, or augmentation of Clozapine. () Patient's Diet: Regular. Patient's Activity: No restrictions. DC Disposition: Returning to home and brother. Recommendations: See PCP for medical issues on discharge diagnosis and for lab/study findings summarized above. Stay away from drugs and alcohol. Referred To: Fili Salas- patient will follow up with Hal Amador APRN 02/02/17 patient reports having a 1pm appt. on that date, but social media senior associate was not able to confirm with agency. Patient will follow up [address] [place] [address] Provider Referral Referred To: [Fili Salas] Notes: [facility] patient normally sees his therapist Audi Bill on or Thursday. He will call Audi and schedule an appt. ship worker unable to schedule an appt. for patient. [address] [place] [address] Copies To: Hal Amador APRN
== END 2017-01-27 13:21 | DRG 754 ==
LOC: CP SOUTH 12:37 → ENRESERV 23:59 → CP SOUTH 01-26 10:28
PROVIDERS: Psychiatry & Neurology Psychiatry; ADMIT Psychiatry & Neurology Addiction Medicine
DX: F32.9 Major depressive disorder, single episode, unspecified (principal); N50.89 Other specified disorders of the male genital organs
CPT/HCPCS: 36415; 81003; 87086; 87491; 87591

== ENCOUNTER 2018-03-29 00:39 | Inpatient (IN) | payer OTHER ==
[~2018-03-29 00:39] MED LIST changes: +LIDOCAINE HCL5 ML TOP; +OLANZAPINE10 M1 PO; +VITAMIN B-121000 MC3 PO
--- NOTE | 2018-03-29 00:41 | ED AMS/SEIZURE/WEAK/DIZZY ---
History of Present Illness General Chief Complaint: Altered Mental Status Stated Complaint: ALTERED MENTAL STATUS,?SI Source: EMS Exam Limitations: clinical condition Vital Signs & Intake/Output Vital Signs & Intake/Output Vital Signs Date Time Temp Pulse Resp B/P B/P Pulse O2 O2 Flow FiO2 Mean Ox Delivery Rate 03/29 0841 97.0 108 20 131/73 100 Room Air 03/29 0530 96.6 98 18 137/80 97 Room Air 03/29 0137 98 Room Air 03/29 0053 97.3 127 20 129/84 98 Room Air Allergies Coded Allergies: diphenhydramine (From BENADRYL) (HIVES 01/16/17) Reconcile Medications Cyanocobalamin (Vitamin B-12) 1,000 MCG TABLET 1,000 MCG PO 0800 Vitamin B-12 supplement Lidocaine HCl 2 % JEL..ML. 1 JANEY TOP AT BEDTIME PRN PENILE PAIN SCALE 1-3 ( MILD) may self apply thin layer to penis tip at bedtime prn pain Olanzapine 10 MG TABLET 20 MG PO 2200 clear thoughts/stable moods Triage Nurses Notes Reviewed? yes Onset: Gradual Duration: hour(s): Timing: single episode today Injury Environment: home Severity: moderate, severe Associated Symptoms: LETHARGY HPI: 28 YO gentleman presents with lethargy and mental status change. Per the medics, he has a history of bipolar disorder, h/o suicide attempts, got into an argument with his girlfriend. Soon after the argument, she found him on the sofa, minimally responsive. He had a bottle of olanzapine, 10mg tablets, filled in October 2016, that was empty. His girlfriend suspects that he ingested an unknown amount of pills. She does not believe that he was using other illicit substances or alcohol. (Terrance VIEIRA,Hilario Rosado) Past History Travel History Traveled to [place] past 21 day No Medical History Any Pertinent Medical History? 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 No (Terrance VIIERA,Hilario Rosado) Review of Systems Review of Systems Constitutional: Reports: no symptoms. EENTM: Reports: no symptoms. Respiratory: Reports: no symptoms. Cardiovascular: Reports: no symptoms. GI: Reports: no symptoms. Genitourinary: Reports: no symptoms. Musculoskeletal: Reports: no symptoms. Skin: Reports: no symptoms. Neurological/Psychological: Reports: no symptoms. Hematologic/Endocrine: Reports: no symptoms. Immunologic/Allergic: Reports: no symptoms. All Other Systems: Reviewed and Negative Comments limited ROS due to patient's lethargy (Terrance VIEIRA,Hilario Rosado) Physical Exam Physical Exam General Appearance: well developed/nourished, no apparent distress, lethargic, pushed hand away with sternal rub Head: atraumatic, normal appearance Eyes: Bilateral: normal appearance, other (pinpoint pupils). Ears, Nose, Throat: normal pharynx, normal ENT inspection Neck: normal inspection, supple, full range of motion Respiratory: normal breath sounds, chest non-tender, no respiratory distress, quiet respiration, lungs clear Cardiovascular: regular rate/rhythm Gastrointestinal: normal bowel sounds, soft, non-tender, no organomegaly Back: normal inspection, normal range of motion Extremities: normal range of motion, evidence of injury Neurologic/Psych: lethargic, pushes hand away with sternal rub. otherwise non verbal Skin: intact, normal color, warm/dry Core Measures ACS in differential dx? No CVA/TIA Diagnosis No Sepsis Present: No Sepsis Focused Exam Completed? No (Terrance VIEIRA,Hilario Rosado) Progress Differential Diagnosis: dehydration, drug intoxication, intracranial Hem. Plan of Care: Orders Procedure Date/time Status Regular Diet 03/30 B Active Nothing by Mouth 03/29 L Active ED Holding Orders 03/29 957 Active Admit to inpatient 03/29 957 Active Vital Signs 03/29 957 Active Code Status 03/29 957 Active EKG 03/29 0300 Active Continuous Observation Monitor 03/29 46 Active URINE DRUG SCREEN FOR ER ONLY 03/29 46 Complete ACETOMINOPHEN 03/29 46 Complete SALICYLATE 03/29 46 Complete ETHANOL 03/29 46 Complete COMPREHENSIVE METABOLIC PANEL 03/29 46 Complete CBC WITHOUT DIFFERENTIAL 03/29 46 Complete EKG 09/10 0046 Active ED CRISIS PSYCH CONSULT 03/29 46 Active Laboratory Tests 03/29/18 0840: Urine Opiates Screen < 100, Methadone Screen < 40, Barbiturate Screen < 60, Ur Phencyclidine Scrn < 6.00, Amphetamines Screen < 100, U Benzodiazepines Scrn < 85, Urine Cocaine Screen < 50, Urine Cannabis Screen < 5.00 03/29/18 0307: Anion Gap 7, Estimated GFR > 60, BUN/Creatinine Ratio 16.3, Glucose 101 H, Calcium 8.3 L, Total Bilirubin 0.6, AST 33, ALT 37, Alkaline Phosphatase 46, Total Protein 6.7, Albumin 4.0, Globulin 2.7, Albumin/Globulin Ratio 1.5, Salicylates < 1.0, Acetaminophen < 10.0 L, Serum Alcohol < 10.0 03/29/18 0106: CBC w Diff NO MAN DIFF REQ, RBC 4.99, MCV 95.1 H, MCH 31.8 H, MCHC 33.5, RDW 12.7, MPV 9.2, Gran % 39.9 L, Lymphocytes % 48.7, Monocytes % 6.8, Eosinophils % 3.8, Basophils % 0.8, Absolute Granulocytes 2.7, Absolute Lymphocytes 3.3, Absolute Monocytes 0.5, Absolute Eosinophils 0.3, Absolute Basophils 0.1 Diagnostic Imaging: Viewed by Me: CT Scan. Discussed w/RAD: CT Scan. Radiology Impression: PATIENT: ELLEN PRESENT AGE: 52 PATIENT ACCOUNT NO: [id number] : [birth year] LOCATION: [facility] ORDERING PHYSICIAN: Hilario Carlos MD SERVICE DATE: 03/28/18 EXAM TYPE: RAD - XRY-PORTABLE CHEST XRAY EXAMINATION: CHEST 1 VIEW CLINICAL INFORMATION: Chest pain. COMPARISON: None. TECHNIQUE: An AP view of the chest is provided. FINDINGS: The cardiac silhouette is not enlarged. The mediastinal and hilar contours are unremarkable. There are neither pleural effusions nor pneumothoraces. There are no consolidations. The osseous structures are unremarkable. IMPRESSION: No evidence for acute disease. DICTATED BY: Donell Tucker MD DATE/TIME DICTATED:03/28/182355 FORKLIFT SUPERVISOR:ADRI DATE/TIME TRANSCRIBED:03/28/182355 CONFIDENTIAL, DO NOT COPY WITHOUT APPROPRIATE AUTHORIZATION. <Electronically signed in Other Vendor System> SIGNED BY: Donell Tucker MD 03/29/18 0000 Initial ED EKG: aflutter (likely artifact) Repeat EKG: changed (nsr, no acute changes) (Terrance VIEIRA,Hilario Rosado) Departure Departure Disposition: STILL A PATIENT Condition: Stable Clinical Impression Primary Impression: Overdose Referrals: Patient Has No Primary Care Dr (PCP/Family) Departure Forms: Customer Survey General Discharge Information Comments pt to be signed out to dr. martin, 03.29.18, 7am. (Terrance VIEIRA,Hilario Rosado) Admission Note Spoke With: Donell Saleh MD Documentation of Exam: Documentation of any treatments & extenuating circumstances including Concerns Regarding Discharge (functional status, medication knowledge or non-compliance, living conditions, etc.) that warrant an admission rather than observation: [The patient needs admission has he has had prolonged stupor, resting tachycardia and consultation with poison control suggested that patients with olanzapine overdoses and prolonged alterations in level of consciousness be admitted for 24 hours.] Patient was signed out to me by Dr. Carlos at 7 AM. He is being admitted to the hospital for further care. (Eliot Martin DO)
--- NOTE | 2018-03-29 01:22 | CT SCAN REPORT ---
EXAMINATION: CT HEAD WITHOUT CONTRAST CLINICAL INFORMATION: Mental status change COMPARISON: None TECHNIQUE: Contiguous axial imaging was performed from the skull base to vertex without intravenous administration of contrast. DLP: 728.27 mGy-cm FINDINGS: There is no evidence of acute intracranial hemorrhage or territorial infarction. No abnormal mass effect or midline shift is seen. Sanabria to white matter differentiation is well preserved. No extra-axial fluid collections are identified. The ventricles are normal in size. There is no abnormal attenuation within the brain parenchyma. The osseous structures and soft tissues are normal. There is mucosal thickening in the ethmoid sinuses bilateral. The mastoid air cells and middle ear cavities are normally aerated. IMPRESSION: No acute intracranial pathology.
[2018-03-29 01:29] LABS: ABSOLUTE BASOPHIL COUNT 0.1 /CUMM (0.0-0.2); ABSOLUTE EOSINOPHIL COUNT 0.3 /CUMM (0.0-0.7); ABSOLUTE GRANULOCYTE CT 2.7 /CUMM (1.4-6.5); ABSOLUTE LYMPH COUNT 3.3 /CUMM (1.2-3.4); ABSOLUTE MONOCYTE COUNT 0.5 /CUMM (0.10-0.60); BASOPHIL % 0.8 % (0.0-2.0); EOSINOPHIL % 3.8 % (0-5); GRANULOCYTE % 39.9 % (42.2-75.2); HEMATOCRIT 47.4 % (42-52); MEAN CORPUSCULAR HGB 31.8 PG (27.0-31.0); MEAN CORPUSCULAR HGB CONC 33.5 G/DL (33.0-37.0); MEAN CORPUSCULAR VOLUME 95.1 FL (80.0-94.0); MEAN PLATELET VOLUME 9.2 FL (7.4-10.4); PLATELET COUNT 207 /CUMM (130-400); RBC DISTRIBUTION WIDTH 12.7 % (11.5-14.5); RED BLOOD CELL CT 4.99 /CUMM (4.70-6.10); WHITE BLOOD CELL COUNT 6.7 /CUMM (4.8-10.8)
--- NOTE | 2018-03-29 10:12 | History & Physical ---
Belinda VIEIRAToi 03/29/18 1012: General Information and HPI History of Present Illness: 28-year-old man with past medical history of bipolar disorder, anxiety, depression, substance abuse, intentional drug overdose of olanzapine (01/2017), and suicidal ideation with attempt brought in by ambulance for evaluation of an intentional drug overdose. Patient was previously admitted to [facility] from 01/17/17-01/27/17 for evaluation of an intentional drug overdose of olanzapine, bupropion, and Percocet complicated by acute kidney injury with rhabdomyolysis and scrotal swelling where he was treated medically and subsequently transferred to the inpatient psychiatric unit where he underwent therapy and his medications were adjusted and he was ultimately discharged to home on oral Zyprexa. Per ED notes patient got into an argument with his girlfriend last evening where he was subsequently found on the sofa earlier this morning minimally responsive. A bottle of olanzapine 10 mg tablets filled in October 2016 was found empty next to him. EMS was contacted and patient was brought to the [place] ED for further evaluation. Poison control was contacted by the ED provider whom recommended telemetry monitoring and no other specific testing for further evaluation of his toxic ingestion. Currently patient is confused, agitated, and combative and does not participate in the interview. Patient's girlfriend Violette was contacted for further collateral information where she confirmed the statements listed above. She denies that he uses any intravenous drugs, drink alcohol, abuses prescription drugs, or use of street drugs other than marijuana. Review of systems Unobtainable due to patient's mental status Objective Vital signs-temp 96.6-97.3, HR 98-127, RR 18-20, BP 129-137/73-84, SPO2 97-100% on room air Physical exam -General: Well-developed, well-nourished young man appearing anxious, combative, confused but in no acute distress -HEENT: NCAT, Alexandro, EOMI, anicteric sclera, no nystagmus -Neck: Supple, no JVD, trachea midline -Cardio: Normal S1/S2 without murmurs/gallops/rubs; regular rate and rhythm -Pulmonary: Clear to auscultation bilaterally -Abdomen: Soft, nontender, nondistended, bowel sounds intact -Neuro: Alternating periods of somnolence with delirium and confusion with speaking gibberish and reaching out to items that are not there, spontaneous movement of all 4 extremities, speech is garbled, complete neurologic examination is limited due to agitation and uncooperation -Extremities: Normal pulses, no edema Diagnostics -CBC: WBC 6.7, hemoglobin 15.9, hematocrit 47.4, platelet 207 -BMP: Sodium 143, potassium 4.6, chloride 113, CO2 24, BUN 13, creatinine 0.8, anion gap 7, glucose 101 -LFT: Within normal limits -Miscellaneous: Calcium 8.3, albumin 4.0, EtOH <10 -Urine toxicology: Negative for substance of abuse and salicylates/acetaminophen -CT head without IV contrast: No acute intracranial pathology -EKG: Normal sinus rhythm without any ST-T wave segment changes Assessment 28-year-old man with multiple medical problems significant for an extensive psychiatric history including bipolar disorder, drug overdose with suicide attempt, and polysubstance abuse brought in by ambulance after being found unresponsive with empty bottle of olanzapine beside him. Vital signs remain within normal limits. Physical examination demonstrates a confused young man appearing combative and agitated with an otherwise normal cardiopulmonary examination and an incomplete neurologic examination. Labs including CBC and serum chemistry are unremarkable. Hepatic function panel is normal. Urine toxicology for drugs of abuse and additionally acetaminophen/ salicylates is unremarkable. CT head without IV contrast is unremarkable. EKG is normal sinus rhythm. Clinically patient appears to have had a drug overdose with toxic ingestion of an unknown amount of substances likely including olanzapine. Poison control was notified in the ED by the provider and recommendations were followed. Patient is being admitted to the telemetry floor for telemetry monitoring, psychiatric consultation, possible inpatient psychiatric evaluation, and possible treatment of medical issues from his substance overdose. Problem List -Altered mental status, likely due to toxic ingestion -Probable intentional overdose with olanzapine +/- other substances with presumed intoxication with olanzapine -History of bipolar disorder -History of suicidal ideation with attempt -Anxiety/depression -History of substance abuse Plan -Admit to telemetry -Telemetry monitoring -Seizure/fall/suicide precautions -Apply restraints PRN for unsafe ambulation or combatativeness -Continuous observation monitor for suicidal ideation -consult with psychiatry for psychiatric issues/suicidal ideation with attempt -Check CPK and troponin -Pain control with acetaminophen -N.p.o. while patient is altered -DVT prophylaxis with Lovenox -Assume full code -Contact his girlfriend Violette for further collateral information Allergies/Medications Allergies: Coded Allergies: diphenhydramine (From BENADRYL) (HIVES 01/16/17) Home Med list Cyanocobalamin (Vitamin B-12) 1,000 MCG TABLET 1,000 MCG PO 0800 Vitamin B-12 supplement Lidocaine HCl 2 % JEL..ML. 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 Exam & Diagnostic Data Last 24 Hrs of Vital Signs/I&O Vital Signs Date Time Temp Pulse Resp B/P B/P Pulse O2 O2 Flow FiO2 Mean Ox Delivery Rate 03/29 1012 88 20 136/74 100 Room Air 03/29 0841 97.0 108 20 131/73 100 Room Air 03/29 0530 96.6 98 18 137/80 97 Room Air 03/29 0137 98 Room Air 03/29 0053 97.3 127 20 129/84 98 Room Air Intake & Output 03/29 1600 03/29 0800 03/29 0000 Intake Total 0 2000 Output Total 50 Balance -50 2000 Intake, IV 2000 Intake, Oral 0 Output, Urine 50 Assessment/Plan As Ranked By This Provider Problem List: 1. Overdose Core Measures/Misc (04/05) Acute Coronary Syndrome ACS Diagnosis: No Congestive Heart Failure Congestive Heart Failure Diagnosis No Cerebrovascular Accident CVA/TIA Diagnosis: No VTE (View Protocol) VTE Risk Factors Acute Medical Illness No Mechanical VTE Prophylaxis d/t N/A MechProphylax Ordered No VTE Pharm Prophylaxis d/t NA PharmProphylax ordered Sepsis (View protocol) Sepsis Present: No If YES complete Sepsis Event Note If YES complete Sepsis Event Note Kenton Lozano 03/29/18 1611: Core Measures/Misc (04/05) Sepsis (View protocol) If YES complete Sepsis Event Note If YES complete Sepsis Event Note Attending MD Review Statement Attending Statement Attending MD Statement: examined this patient, discuss w/resident/PA/ROVING OR YARN COLOR CHECKER, agreed w/resident/PA/ROVING OR YARN COLOR CHECKER, reviewed EMR data (avail), discussed with nursing Attending Assessment/Plan: 28 yr M with PMH of bipolar disorder, anxiety, depression, substance abuse, intentional drug overdose of olanzapine (01/2017), and suicidal ideation with attempt brought in by ambulance for evaluation of an intentional drug overdose. Pt was found unresponsive with bottle of olanzapine by his girlfriend. Admit to telemetry. Pt needed to be restrained while in ER as was very agitated and combative. Psych consult. monitor closely for deterioration. prn meds for agitation.
--- NOTE | 2018-03-29 16:07 | Admission Certification ---
Admission Certification Certification Statement - As attending physician, I certify that at the time of - admission, based on clinical presentation, severity of - symptoms, need for further diagnostic testing and - therapeutic interventions, and risk of adverse outcomes - without in-hospital treatment, in my clinical assessment, - this patient requires an acute hospital stay for a minimum - of two nights or longer. I have also considered psychsocial - factors such as support system, advanced age, financial - issues, cognitive issues, and failed out-patient treatments, - past re-admission history, safety of patient, and lack of - compliance as applicable. Specific rationale supporting this admission is: drug overdose and suicidal ideation and attmept
[2018-03-30 02:49] VITALS: BP 106/75
[2018-03-30 06:53] VITALS: BP 112/70
--- NOTE | 2018-03-30 07:27 | PN- Housestaff ---
GarciaLange 03/30/18 0726: Subjective Follow-up For: Altered mental status Polysubstance abuse Suicidal ideation Tele-Events Since Last Visit: Patient remained in sinus rhythm with heart rate between 4767 Subjective: No overnight events. Patient remained afebrile. Seen and examined this morning. He was in four hard restraints and in Sher[place] due to agitation. Patient was sleeping when I went to see him. He was arousable. Patient reported that he does not have any nausea or vomiting. He did not reply to me for all the questions. Review of Systems Constitutional: Reports: see HPI. Objective Last 24 Hrs of Vital Signs/I&O Vital Signs Date Time Temp Pulse Resp B/P B/P Pulse O2 O2 Flow FiO2 Mean Ox Delivery Rate 03/30 0653 97.5 55 20 112/70 96 Room Air 03/30 0249 97.0 55 16 106/75 93 Room Air 03/29 2141 74 22 03/29 2136 Room Air 03/29 1012 88 20 136/74 100 Room Air 03/29 0841 97.0 108 20 131/73 100 Room Air Intake & Output 03/30 1600 03/30 0800 03/30 0000 Intake Total Output Total 175 Balance -175 Output, Urine 175 Patient 122 lb Weight Physical Exam General Appearance: sleeping Skin Temp/Moisture Exam: Warm/Dry Sepsis Skin Exam (color): Normal for Ethnicity HEENT: Atraumatic Neck: Supple Cardiovascular: Normal S1, Normal S2 Lungs: Clear to Auscultation Abdomen: Soft, No Tenderness Extremities: No Edema Assessment/Plan Assessment: 28 YO M with past medical history of bipolar disorder, anxiety, depression, substance abuse, intentional drug overdose of olanzapine (01/2017), and suicidal ideation with attempt brought in by ambulance for evaluation of an intentional drug overdose. Following the patient on telemetry floor for following problems. Altered mental status and polysubstance abuse: -Could be toxic metabolic encephalopathy due to drug overdose. Patient took olanzapine. -Continue seizure precautions -Continue aspiration precautions -Continue monitoring him on telemetry floor for any arrhythmias or blocks. -His QTC came back within normal limits yesterday. His QTC today is 447. -His troponins remain negative -His potassium and magnesium is within normal limits. -Continue IV hydration with D5 half normal saline. -Continue n.p.o. Agitation and combativeness: -Possibly due to drug overdose and patient has a history of bipolar disorder. -Continue four-point hard restraints and Sheridan. -Continue as needed Ativan and haloperidol -Follow-up psychiatry recommendations Suicidal ideation: -Continue restraints and Vonda for agitation and combativeness -Follow-up psychiatry recommendations -Continue Ativan as needed for agitation and haloperidol History of depression and anxiety: -Not on any medications, we will follow psych recommendations History of bipolar: -We will follow psych recommendations from bipolar medication. DVT prophylaxis: Mechanical and subcutaneous Lovenox CODE STATUS: Full code Problem List: 1. Overdose 2. Altered mental status Pain Ratin Pain Location: none Pain Goal: Remain pain free Pain Plan: pain pathway Tomorrow's Labs & Rationales: cbc/bep/mag Kenton Lozano 03/30/18 1440: Attending MD Review Statement Attending Statement Attending MD Statement: examined this patient, discuss w/resident/PA/CHART COMPUTER, agreed w/resident/PA/CHART COMPUTER, reviewed EMR data (avail), discussed with nursing, discussed with case mgmt Attending Assessment/Plan: 28 yr M with PMH of bipolar disorder, anxiety, depression, substance abuse, intentional drug overdose of olanzapine (01/2017), and suicidal ideation with attempt brought in by ambulance for evaluation of an intentional drug overdose. Pt was found unresponsive with bottle of olanzapine by his girlfriend. Pt still very drowsy. will give iv fluids and will try to dc restraints slowly as pt wakes up and is less agitated. Psych will see once pt more awake for interviewing.
[2018-03-30 07:48] LABS: ABSOLUTE BASOPHIL COUNT 0 /CUMM (0.0-0.2); ABSOLUTE EOSINOPHIL COUNT 0.3 /CUMM (0.0-0.7); ABSOLUTE GRANULOCYTE CT 4.4 /CUMM (1.4-6.5); ABSOLUTE LYMPH COUNT 1.6 /CUMM (1.2-3.4); ABSOLUTE MONOCYTE COUNT 0.4 /CUMM (0.10-0.60); BASOPHIL % 0.5 % (0.0-2.0); EOSINOPHIL % 3.8 % (0-5); HEMATOCRIT 44.9 % (42-52); MEAN CORPUSCULAR HGB 31.7 PG (27.0-31.0); MEAN CORPUSCULAR HGB CONC 33.3 G/DL (33.0-37.0); MEAN CORPUSCULAR VOLUME 95.2 FL (80.0-94.0); MEAN PLATELET VOLUME 8.7 FL (7.4-10.4); PLATELET COUNT 180 /CUMM (130-400); RBC DISTRIBUTION WIDTH 12.9 % (11.5-14.5); RED BLOOD CELL CT 4.72 /CUMM (4.70-6.10); WHITE BLOOD CELL COUNT 6.7 /CUMM (4.8-10.8)
[2018-03-30 07:51] LABS: GRANULOCYTE % 65.6 % (42.2-75.2)
--- NOTE | 2018-03-30 13:45 | Incdntl Nt Psy ---
Incidental Note Notation: Went to see patient who has been sleeping for most of the day. He is not present currently alert enough to participate in an interview. Please contact psychiatry at pager #[phone] when the patient is fully alert.
[2018-03-30 15:31] VITALS: BP 104/72
[2018-03-30 23:01] VITALS: BP 110/70
[2018-03-31 06:56] VITALS: BP 90/60
--- NOTE | 2018-03-31 08:02 | PN- Housestaff ---
GarciaLarkspur 03/31/18 0801: Subjective Follow-up For: Altered mental status, resolved Polysubstance abuse Suicidal ideation Tele-Events Since Last Visit: Patient remained in sinus rhythm with heart rate between 4681 Subjective: No overnight events. Patient remained afebrile overnight. Seen and examined this morning. Patient is oriented and alert. He is out of Hudson and restraints. He did not have any agitation overnight. Patient agreed to see a psychiatrist today. I spoke to the psychiatrist this morning and she will come in see him today. Review of Systems Constitutional: Denies: chills, fever. EENTM: Reports: no symptoms. Cardiovascular: Denies: chest pain, palpitations. Respiratory: Denies: cough, short of breath, sputum production. Gastrointestinal: Denies: abdominal pain, diarrhea, nausea, vomiting. Genitourinary: Reports: no symptoms. Musculoskeletal: Reports: no symptoms. Neurological/Psychological: Reports: see HPI. Objective Last 24 Hrs of Vital Signs/I&O Vital Signs Date Time Temp Pulse Resp B/P B/P Pulse O2 O2 Flow FiO2 Mean Ox Delivery Rate 03/31 0656 97.6 62 20 90/60 99 03/30 2301 97.9 69 20 110/70 97 03/30 1600 96 Room Air 03/30 1531 98.2 64 20 104/72 97 Intake & Output 03/31 1600 03/31 0800 03/31 0000 Intake Total 800 350 Output Total Balance 800 350 Intake, IV 800 200 Intake, Oral 150 Patient 124 lb 127 lb Weight Physical Exam General Appearance: Alert, Oriented X3, Cooperative Skin Temp/Moisture Exam: Warm/Dry Sepsis Skin Exam (color): Normal for Ethnicity HEENT: Atraumatic, PERRLA, EOMI Neck: Supple Cardiovascular: Normal S1, Normal S2 Lungs: Clear to Auscultation Abdomen: Soft, No Tenderness Neurological: Normal Speech, Strength at 5/5 X4 Ext, Normal Tone Extremities: No Edema Assessment/Plan Assessment: 28 YO M with past medical history of bipolar disorder, anxiety, depression, substance abuse, intentional drug overdose of olanzapine (01/2017), and suicidal ideation with attempt brought in by ambulance for evaluation of an intentional drug overdose. Following the patient on telemetry floor for following problems. Altered mental status and polysubstance abuse:(resolved) -Could be toxic metabolic encephalopathy due to drug overdose. Patient took olanzapine. -Continue seizure precautions -Patient is well-oriented and alert. He remained calm overnight did not get any doses of Haldol or Ativan. This morning he has agreed to see the psychiatrist. -Continue monitoring him on telemetry floor for any arrhythmias or blocks. -His QTC came back within normal limits yesterday. His QTC today is 447. -His troponins remain negative -His potassium and magnesium is within normal limits. -Continue IV hydration with D5 half normal saline. We will discontinue his IV fluids then he starts eating. Agitation and combativeness:improved -Possibly due to drug overdose and patient has a history of bipolar disorder. -Patient is out of Hudson and restraints and he remained sober overnight. -Continue as needed Ativan and haloperidol prn. -Follow-up psychiatry recommendations Suicidal ideation: -Continue restraints and Hudson for agitation and combativeness -Follow-up psychiatry recommendations -Continue Ativan as needed for agitation and haloperidol History of depression and anxiety: -Not on any medications, we will follow psych recommendations History of bipolar: -We will follow psych recommendations from bipolar medication. DVT prophylaxis: Mechanical and subcutaneous Lovenox CODE STATUS: Full code Problem List: 1. Overdose 2. Altered mental status Pain Ratin Pain Location: none Pain Goal: Remain pain free Pain Plan: pain pathway Tomorrow's Labs & Rationales: bep/mag Keli Mccord MD 03/31/18 0959: Attending MD Review Statement Attending Statement Attending MD Statement: examined this patient, discuss w/resident/PA/MANAGER WOUND CARE, agreed w/resident/PA/MANAGER WOUND CARE, reviewed EMR data (avail), discussed with nursing, discussed with case mgmt, reviewed images Attending Assessment/Plan: 28-year-old male past medical history of significant psychiatric comorbidity including inpatient psychiatric hospitalization for suicidal ideation and depression. He is here with an intentional olanzapine overdose. We monitored him and his QTC is within normal range, he has been afebrile without any arrhythmias or electrolyte abnormalities. Will talk to psychiatry today as I think he is medically cleared and the plan will depend on questions inpatient psychiatry versus outpatient treatment.
--- NOTE | 2018-03-31 11:49 | Discharge Summary ---
Visit Information Visit Dates Admission Date: 03/29/18 Discharge Date: 04/01/18 Hospital Course Course Attending Physician: Suri VIEIRA,Keli Ling Primary Care Physician: Patient Has No Primary Care Dr Hospital Course: 28 YO M with past medical history of bipolar disorder, anxiety, depression, substance abuse, intentional drug overdose of olanzapine (01/2017), and suicidal ideation with attempt brought in by ambulance for evaluation of an intentional drug overdose. ED course: Vitals: Temperature 97.3, pulse 127, respiratory 20, blood pressure 129/84, oxygen saturation 98% on room air. Labs: WBC count 6.7, hemoglobin 15.9, hematocrit 47.4, platelet count 207, sodium 143, potassium 4.6, BUN 13, creatinine 0.8, calcium 8.3, glucose 101, BUN /creatinine ratio 16.3, acetaminophen level less than 10.0, serum alcohol less than 10.0, alkaline phosphatase 46, Total bilirubin 0.6 Toxic Metabolic encephalopathy: Patient presented with altered mental status due to polysubstance abuse and olanzapine overdose. Patient was impulsively wanted to kill himself. Considering his overdosing with olanzapine patient was placed on telemetry floor to monitor his QTC interval and for arrhythmia or blocks. Initially patient remained unresponsive. His CT had remained negative for any intracranial pathology. He was given IV fluids and Ativan as needed for agitation. His QTC was monitored with EKGs. His first EKG showed prolonged QTc but later on his QTC came back to within normal limits. Patient remained asymptomatic. Seizure and aspiration precautions were taken. His repeat EKG before discharge showed QTC 447 without any acute EKG changes for ischemia. His electrolytes were repleted. Later on patient's mental status improved. He was out of encephalopathy and remained calm. Patient was instructed to follow his psychiatry after the discharge. Medically patient was cleared to be admitted to inpatient psychiatry today. Agitation and combativeness: Patient was initially agitated and combative possibly due to drug overdose and underlying his mental problems. Patient was kept in 4 point hard restraints and in Vonda to prevent him to harm himself or somebody else. He was given Ativan and Haldol as needed for agitation. Psychiatry consult was obtained for further recommendations. Psychiatry spoke to the patient for inpatient psychiatry admission. Patient had inpatient psychiatry admission due to his mental health issues in the past. Patient remained impulsive and he declined voluntary admission stating "nothing can help" per psychiatry note. Suicidal ideation: Considering patient's history of bipolar disease and severe depression without psychosocial support, he had suicidal ideation. He remained impulsive and having same suicidal ideation. One-on-one sitter was arranged. Initially he was in restraints but later on he remained sober and restraints were removed. We will keep one-to-one sitter considering his suicidal ideation. Psychiatry recommended inpatient psychiatry admission. History of depression and anxiety: Patient had history of depression and anxiety but he was not on any medications. Possibly due to his financial issues and lack of access to healthcare system he did not have any medications for depression anxiety. Possibly bipolar disorder causing him sometimes depression and sometimes impulsive symptoms. Psychiatry will recommend some medications for it. History of bipolar: Patient was advised to follow psychiatry for his bipolar disorder. DVT prophylaxis: Mechanical and subcutaneous Lovenox CODE STATUS: Full code Allergies: Coded Allergies: diphenhydramine (From BENADRYL) (HIVES 01/16/17) Pertinent Lab Results: CT head on 03/29/2018: IMPRESSION: No acute intracranial pathology. Disposition Summary Disposition Principal Diagnosis: Toxic Metabolic encephalopathy Agitation and combativeness Suicidal ideation Additional Diagnosis: History of bipolar disorder History of anxiety and depression Discharge Disposition: other general hospital Discharge Instructions General Discharge Information Code Status: Full Code Patient's Diet: Regular diet Patient's Activity: Self-limited Follow-Up Instructions/Appts: Follow-up with your primary care physician in 1 week. Follow-up with psychiatry in 1 week. Medications at Discharge Discharge Medications: Stop taking the following medications: Olanzapine (Olanzapine) 10 MG TABLET ORAL 2200 Qty = 14 Continue taking these medications: Cyanocobalamin (Vitamin B-12) 1,000 MCG TABLET 1,000 Microgram ORAL DAILY @8 AM Qty = 14 Comments: NOT GIVEN IN HOSPITAL Lidocaine HCl (Lidocaine HCl) 2 % JEL..ML. 1 Application On the skin AT BEDTIME as needed for PENILE PAIN SCALE 1-3 ( MILD) Qty = 1 Instructions: may self apply thin layer to penis tip at bedtime prn pain Comments: NOT GIVEN IN HOSPITAL Copies To: Tee VIEIRA,Raya Oliveira MD,Raya
--- NOTE | 2018-03-31 11:49 | Patient Discharge Instructions ---
Discharge Instructions General Discharge Information You were seen/treated for: Metabolic encephalopathy possibly due to drug overdose. Agitation and combativeness Watch for these problems: Chest pain, palpitation, lightheadedness, suicidal ideation, threats to others, anxiety, depression. If you experience any of the symptoms please call to your primary care physician or come to ED. Special Instructions: Follow-up with your primary care physician in 1 week Follow-up with your psychiatrist in 1 week Olanzapine has been discontinued please talk to your psychiatrist to resume it or any other alternative drug for bipolar disorder. Diet Recommended Diet: Regular Activity Activity Self Limited: Yes Acute Coronary Syndrome Inclusion Criteria At DC or during hospital stay patient has or had the following: ACS DIAGNOSIS No Discharge Core Measures Meds if any: Prescribed or Continued at Discharge Meds if any: NOT Prescribed or Continued at Discharge Congestive Heart Failure Inclusion Criteria At DC or during hospital stay patient has or had the following: CHF DIAGNOSIS No Discharge Core Measures Meds if any: Prescribed or Continued at Discharge Meds if any: NOT Prescribed or Continued at Discharge Cerebrovascular accident Inclusion Criteria At DC or during hospital stay patient has or had the following: CVA/TIA Diagnosis No Discharge Core Measures Meds if any: Prescribed or Continued at Discharge Meds if any: NOT Prescribed or Continued at Discharge Venous thromboembolism Inclusion Criteria VTE Diagnosis No VTE Type NONE VTE Confirmed by (Test) NONE Discharge Core Measures - Per Current guidelines, there needs to be overlap - treatment for the first 5 days of Warfarin therapy. - If discharged on Warfarin prior to 5 days of - overlap therapy, the patient will need to be - assessed for post discharge needs including - *Post discharge parental anticoagulation - *Warfarin and/or parental anticoagulation education - *Follow up date to check INR post discharge At least 5 days overlap therapy as Inpatient No Meds if any: Prescribed or Continued at Discharge Note: Overlap Therapy is Warfarin and Anticoagulant Meds if any: NOT Prescribed or Continued at Discharge
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
[2018-03-31 14:54] VITALS: BP 130/64
--- NOTE | 2018-03-31 15:00 | Incdntl Nt Psy ---
Incidental Note Notation: No bed available on [facility] today. Pt will be admitted when bed available.
[2018-03-31 21:50] VITALS: BP 130/74
[2018-04-01 06:48] VITALS: BP 102/76
--- NOTE | 2018-04-01 07:42 | PN- Housestaff ---
[place] 04/01/18 0741: Subjective Follow-up For: Altered mental status, resolved Polysubstance abuse Suicidal ideation Tele-Events Since Last Visit: off tele Subjective: No overnight events. Patient remained afebrile. Seen and examined this morning. Patient has one-on-one sitter. He remained sober overnight. He denied chest pain, palpitation, nausea, vomiting, chill, fever, abdominal pain dysuria. He remained out of restraints. Patient is waiting for bed and inpatient psych. Then bed is available patient will be discharged. Review of Systems Constitutional: Denies: chills, fever. EENTM: Reports: no symptoms. Cardiovascular: Denies: chest pain, palpitations. Respiratory: Denies: cough, short of breath, sputum production. Gastrointestinal: Denies: abdominal pain, constipation, diarrhea, nausea, vomiting. Genitourinary: Denies: discharge, frequency, hematuria. Musculoskeletal: Reports: no symptoms. Neurological/Psychological: Reports: see HPI. Objective Last 24 Hrs of Vital Signs/I&O Vital Signs Date Time Temp Pulse Resp B/P B/P Pulse O2 O2 Flow FiO2 Mean Ox Delivery Rate 04/01 0648 97.7 72 20 102/76 98 Room Air 04/01 0000 Room Air 03/31 2150 97.7 64 12 130/74 97 Room Air 03/31 1454 97.9 64 18 130/64 98 Room Air Intake & Output 04/01 1600 04/01 0800 04/01 0000 Intake Total 600 Output Total Balance 600 Intake, Oral 600 Number 0 Bowel Movements Physical Exam General Appearance: Alert, Oriented X3, Cooperative Skin Temp/Moisture Exam: Warm/Dry Sepsis Skin Exam (color): Normal for Ethnicity HEENT: Atraumatic, PERRLA, EOMI Neck: Supple Cardiovascular: Normal S1, Normal S2 Lungs: Clear to Auscultation Abdomen: Soft, No Tenderness Neurological: Normal Speech, Strength at 5/5 X4 Ext, Normal Tone Extremities: No Edema Assessment/Plan Assessment: 28 YO M with past medical history of bipolar disorder, anxiety, depression, substance abuse, intentional drug overdose of olanzapine (01/2017), and suicidal ideation with attempt brought in by ambulance for evaluation of an intentional drug overdose. Seeing the patient on telemetry floor for following problems. Altered mental status and polysubstance abuse:(resolved) -Could be toxic metabolic encephalopathy due to drug overdose. Patient took olanzapine. -Continue seizure precautions -Patient is well-oriented and alert. He remained calm overnight did not get any doses of Haldol or Ativan. This morning he has agreed to see the psychiatrist. -Continue monitoring him on telemetry floor for any arrhythmias or blocks. -His QTC came back within normal limits yesterday. His QTC today is 447. -His troponins remain negative -His potassium and magnesium is within normal limits. -Patient is waiting for inpatient psych bed placement. He is cleared medically to be discharged and go to inpatient psych. Agitation and combativeness: improved -Possibly due to drug overdose and patient has a history of bipolar disorder. -Patient is out of [place] and restraints and he remained sober overnight. -Continue as needed Ativan and haloperidol prn. Suicidal ideation: -Continue restraints and Vonda for agitation and combativeness -Follow-up psychiatry recommendations -Continue Ativan as needed for agitation and haloperidol History of depression and anxiety: -Not on any medications, we will follow psych recommendations History of bipolar: -We will follow psych recommendations from bipolar medication. DVT prophylaxis: Mechanical and subcutaneous Lovenox CODE STATUS: Full code Problem List: 1. Overdose 2. Altered mental status Pain Ratin Pain Location: none Pain Goal: Remain pain free Pain Plan: pain pathway Tomorrow's Labs & Rationales: none Keli Mccord MD 04/01/18 0948: Attending MD Review Statement Attending Statement Attending MD Statement: examined this patient, discuss w/resident/PA/CLEANER OPERATOR, agreed w/resident/PA/CLEANER OPERATOR, reviewed EMR data (avail), discussed with nursing, discussed with case mgmt, reviewed images Attending Assessment/Plan: Apparently overnight the patient was fairly threatening to the staff and is upset at the thought of going to inpatient psychiatry. He has been seen but by the psychiatrist who feels that he is a danger to himself and others given that this is his fifth suicidal attempt. From a cardiac and medical standpoint he stable and he is off the monitor and will follow-up as per psychiatry.
--- NOTE | 2018-04-01 10:56 | Incdntl Nt Psy ---
Incidental Note Notation: Pt seen this morning. Aware that he is [facility] and is in agreement.
== END 2018-04-01 12:57 | DRG 817 ==
LOC: ERH 00:39 → ERHI 09:57 → 1NO 09:57 → ENRESERV 10:33 → ENTRNSPT 11:03 → EDTRNSPTSTS 11:06 → EDTRNSPT 11:06 → 1NO 11:13 → CMPTRNSPT 11:31 → 1NO 19:59 → ENPENDDIS 04-01 12:22 → ENTRNSPT 04-01 12:47 → EDTRNSPT 04-01 12:48 → EDTRNSPTSTS 04-01 12:48 → 1NO 04-01 12:57 → CMPTRNSPT 04-01 13:02
PROVIDERS: Internal Medicine Interventional Cardiology; Pediatrics
DX: T43.592A Poisoning by other antipsychotics and neuroleptics, intentional self-harm, initial encounter (principal); G92 Toxic encephalopathy; R41.82 Altered mental status, unspecified; Y92.009 Unspecified place in unspecified non-institutional (private) residence as the place of occurrence of the external cause; F31.9 Bipolar disorder, unspecified; Z91.5 Personal history of self-harm; F41.9 Anxiety disorder, unspecified; F19.11 Other psychoactive substance abuse, in remission; R45.1 Restlessness and agitation; I45.81 Long QT syndrome; R45.851 Suicidal ideations; Z88.8 Allergy status to other drugs, medicaments and biological substances; Z60.9 Problem related to social environment, unspecified; Z78.1 Physical restraint status
CPT/HCPCS: 1NP; 36415; 36592; 80307; 82436; 93005; 93010; 96360; 96361; 99291; G0480; J1630; J1650; J7042

== ENCOUNTER 2018-04-01 11:20 | Inpatient (IN) | payer OTHER ==
[~2018-04-01] VITALS: Ht 167.6 cm; Wt 58.6 kg
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
[2018-04-01 13:20] VITALS: BP 122/70
[2018-04-01 19:47] VITALS: BP 131/76
[2018-04-02 08:22] VITALS: BP 138/65
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
--- NOTE | 2018-04-02 12:33 | PN- Att Addend ---
See Addendum Attending Addendum Attending Brief Note Patient seen and examined, feels better. says he is in better spirits today. Denies any aches or pains. Vital Signs Date Time Temp Pulse Resp B/P B/P Pulse O2 O2 Flow FiO2 Mean Ox Delivery Rate 04/02 0822 96.7 76 138/65 04/01 1947 96.6 69 131/76 04/01 1320 96.9 70 122/70 on exam; aox3, nad. cv; s1,s2, rrr resp; clear abd; soft, nt, bs+ ext; no edema no labs. A/P: 28 y/o M with pmh sig for bipolar disorder, anxiety, depression, substance abuse, intentional drug overdose of olanzapine (01/2017), and suicidal ideation was admitted to med floor on 03/29/18 with intentional drug overdose and suicide attempt. Now Tx to CPS for continued management of his psychiatric issues. Blood work and vitals look good. Further psych Mx is up to the psychiatrist.
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
[2018-04-02 19:56] VITALS: BP 143/61
[2018-04-03 07:45] VITALS: BP 129/64
--- NOTE | 2018-04-03 17:35 | CP SOUTH PROGRESS NOTE PSYCH ---
Psych (Inpt) Progress Note Progress Note Progress Note: The patient is a 28-year-old single black male admitted after a suicidal attempt. He overdosed on Zyprexa. This is his 6th attempt. Today, he feels "good". He is sleeping well. He denied any sadness. He denied medication side effect. He denied any struggle with energy level or appetite. He denied any worries. Per RN report, pt interacted with pt and appear "not depressed". Current Medications Sig/Chula Start time Last Medication Dose Route Stop Time Status Admin Acetaminophen 650 MG Q4P PRN 04/01 1215 AC PO Al Hydroxide/Mg 30 ML Q4-6 PRN PRN 04/01 1215 AC Hydroxide PO Haloperidol 5 MG Q6P PRN 04/01 1315 AC IM Hydroxyzine HCl 50 MG Q6P PRN 04/01 1215 AC PO [place] Carbonate 300 MG 0800,04/02 1100 AC 04/03 PO 1006 Lorazepam 2 MG Q6-PRN PRN 04/01 1215 AC IM Nicotine 2 MG Q2P PRN 04/02 1430 AC PO Trazodone HCl 50 MG AT BEDTIME NEED.. 04/02 2239 AC PO Vital Signs Date Time Temp Pulse Resp B/P B/P Pulse O2 O2 Flow FiO2 Mean Ox Delivery Rate 04/03 0745 96.7 65 129/64 04/02 1956 97.9 87 143/61 MMSE: He is AOx3. He is appropraietly dress. Hair is braided. His speech is normal rate. No psychomotor agitation or retardation. Thought is concrete and logical. No suicidality or homicidality or hallucination. His insight and judgement is fair. Assessment: Pt is better today and denied any suicidlaity. Diagnosis: Bipolar disorder, depression. Cannabis use disorder. Alcohol use disorder. S/p olanzapine overdose. Plan: - D/C Zyprexa - Continue [place] 300mg BID
[2018-04-03 20:20] VITALS: BP 127/65
[2018-04-04 08:31] VITALS: BP 106/60
--- NOTE | 2018-04-04 13:34 | CP SOUTH PROGRESS NOTE PSYCH ---
Psych (Inpt) Progress Note Progress Note The patient is a 28-year-old single black male admitted after a suicidal attempt. He overdosed on Zyprexa. This is his 6th attempt. Today, "I'm good". "we don't need to meet". When asked for a short meeting. he agreed. He denied any mood issues. He denied any suicidality. He denied any medication side effect. He reported good sleep and appetite. Per RN report, pt did well though out the day. No behavioral issues Vital Signs Date Time Temp Pulse Resp B/P B/P Pulse O2 O2 Flow FiO2 Mean Ox Delivery Rate 04/04 831 96.1 60 106/60 04/03 2020 97.6 72 127/65 Current Medications Sig/Chula Start time Last Medication Dose Route Stop Time Status Admin Acetaminophen 650 MG Q4P PRN 04/01 1215 AC PO Al Hydroxide/Mg 30 ML Q4-6 PRN PRN 04/01 1215 AC Hydroxide PO Haloperidol 5 MG Q6P PRN 04/01 1315 AC IM Hydroxyzine HCl 50 MG Q6P PRN 04/01 1215 AC PO [place] Carbonate 300 MG 0800,04/02 1100 AC 04/04 PO 0856 Lorazepam 2 MG Q6-PRN PRN 04/01 1215 AC IM Nicotine 2 MG Q2P PRN 04/02 1430 AC PO Trazodone HCl 50 MG AT BEDTIME NEED.. 04/02 2239 AC PO MMSE: He is AOx3. He is appropraietly dress. Hair is braided. His speech is normal rate. Little hyper today. Thought is concrete and logical. No suicidality or homicidality or hallucination. His insight and judgement is fair. Assessment: He is better. [place] started Thursday. Level is due Thursday. Diagnosis: Bipolar disorder, depression. Cannabis use disorder. Alcohol use disorder. S/p olanzapine overdose. Plan: - D/C Zyprexa - Continue [place] 300mg BID
[2018-04-04 19:53] VITALS: BP 120/79
[2018-04-05 08:21] VITALS: BP 120/73
--- NOTE | 2018-04-05 14:31 | CP SOUTH PROGRESS NOTE PSYCH ---
Psych (Inpt) Progress Note Progress Note Include the following elements, when applicable: Involvement in the active treatment of the patient with behavioral observations of the patient and the patient's response to the treatment. Review of the ongoing treatment process in the context of the treatment plan. Indication of how multi-disciplinary staff members are carrying out the treatment plan. Plans for future interventions and recommendations for revision of the treatment plan. Liaison with other physicians/providers. Progress Note: Dr. Emmanuel's notes reviewed. Case and treatment plan discussed in team meeting. Staff reports that the patient is denying suicidal ideation. Couple's meeting was scheduled for 1:45 PM. Patient reportedly becomes agitated when limits are set. Has legal issues. Echocardiogram has not yet been done. [place] level is 0.2. Patient seen at 10:34 AM. He was in group prior to meeting with me in conference room. He feels he is being treated less than human by staff. Speech is loud. Patient consents to phone meeting with girlfriend. Reports mood as "I 'm good, I'm alright." Feels no different on lithium. Tolerating lithium. Affect is animated. Rates sad mood -07/29. Denies feeling high. He feels a little anxious talking about discharge, which he is pressuring for. Rates anxiety 04/28. He feels a discharge date of this is too far out. Denies feeling hopeless, helpless, worthless or guilty. Denies active and passive suicidal ideation. Denies homicidal ideation. Denies auditory and visual hallucinations and paranoid ideation. Reports sleep is all right but he has had vivid/lucid dreams on lithium. Appetite: Reports he is eating a lot. Energy is all right. I participated in telephonic family meeting. Patient was present. Girlfriend attended by phone. Meeting was run by Yas Scales LCSW. Girlfriend's and patient's questions were addressed. I requested that girlfriend dispose of any old pills stashes. IMPRESSION: Slow progress. Continue present treatment plan. I have increased lithium carbonate dose to 600 mg twice daily and we will check a repeat blood level on . Anticipate discharge on to home and family with referral to [facility].
--- NOTE | 2018-04-05 15:39 | SOCIAL WORKER PROG NOTE PSYCH ---
Social Work Progress Note Progress Note The services requested require additional review. You will be contacted regarding the status of this request if further information is needed. An authorization decision will be made within the required timeframes and details of that decision may be found under the member's authorization history. Member Name Member ID Member Subscriber Name Subscriber ID ARTURO IRBY [id number] 1990 ARTURO IRBY [id number] Pended Authorization # Client Authorization # Type of Request [id number] CONCURRENT Date of Admission/ Start of Services Requested From Submission Date 04/01/2018 04/05/2018 04/05/2018 Level of Service Type of Service Level of Care Type of Care INPATIENT/HLOC Mental Health Inpatient Inpatient [facility] - Inpatient Hospital Reason Code P76 Provider Name & Address Provider ID Provider Alternate ID NPI # for Authorization GEORGE REID [address] [place] [id number]
--- NOTE | 2018-04-05 16:44 | SOCIAL WORKER PROG NOTE PSYCH ---
Social Work Progress Note Progress Note Psychiatric Community Health Worker Note Scheduled [facility] IOP intake appt for , 04.08.18 at 1:15pm. Heather "Rob Plata Psychiatric Community Health Worker
--- NOTE | 2018-04-05 17:42 | SOCIAL WORKER PROG NOTE PSYCH ---
See Addendum Social Work Progress Note Progress Note This fiction and nonfiction writer prose met with patient. He stated that his girlfriend, Violette, could be contacted today between 1:40 and 2:15pm for a family meeting that she will attend by phone. He stated that he was eager to discharge and spoke with Dr. Saba about an anticipated discharge date of , 04/08/18. Patient agreed to an IOP referral. We also discussed individual therapy, as he had previously reported this. Patient would consider whether or not to schedule both IOP and individual or wait with the individual until after completing IOP. He will inform this fiction and nonfiction writer prose with his decision tomorrow. 1:50pm Dr. Saba and this fiction and nonfiction writer prose met with the patient and his girlfriend, Violette, who attended by phone. She expressed concerns about his "extremes of emotion" as well as the overdose prior to admission. Dr. Saba addressed these questions/ concerns and also discussed medications. Violette will dispose of all old medications in the home. Dr. Saba also discussed the abnormal EKG. This fiction and nonfiction writer prose discussed discharge plans and anticipated discharge of 04/08/18. Specifically, the IOP recommendation was discussed as well as the patient's expressed interest in individual therapy. Violette was also informed that the patient has not yet made a decision on whether he would like an individual therapy referral at this time. Violette was informed that a referral to [facility] will be made. Upon this fiction and nonfiction writer prose's inquiry, patient stated that he did not have any access to firearms and Violette confirmed that there are no firearms in the home. Patient was not active or engaged in this conversation, placing his head on the table for most of the conversation. He explained that he was feeling very tired from the medications.
[2018-04-05 19:49] VITALS: BP 129/71
[2018-04-06 08:05] VITALS: BP 129/74
--- NOTE | 2018-04-06 12:09 | CP SOUTH PROGRESS NOTE PSYCH ---
Psych (Inpt) Progress Note Progress Note Include the following elements, when applicable: Involvement in the active treatment of the patient with behavioral observations of the patient and the patient's response to the treatment. Review of the ongoing treatment process in the context of the treatment plan. Indication of how multi-disciplinary staff members are carrying out the treatment plan. Plans for future interventions and recommendations for revision of the treatment plan. Liaison with other physicians/providers. Progress Note: Case and treatment plan discussed in team meeting. Staff reports that the patient is denying suicidal ideation. Had echocardiogram this morning. Described as loud and joking around. Refused to go to planning meeting yesterday. Used foul language in focus group. Patient seen at 10:35 AM with social science analyst and PA student. Patient would like to know echocardiogram result. States he is all right. Tolerating increase in lithium dose although it made him feel drowsy yesterday. Appears awake and alert. Affect is calm and euthymic. Reports mood is "well, actually, great mood." Rates sad mood -2/10 and anxiety 0/10. Denies feeling hopeless, helpless, worthless or guilty. Denies active and passive suicidal ideation. Denies homicidal ideation. Denies auditory and visual hallucinations and paranoid ideation. Reports sleep is pretty regular but he has vivid dreams that do not distress him. States he is eating like a champ. Describes energy as high and he wishes he had something to do with it. IMPRESSION: Condition improving. Continue lithium at present dosing. We will be checking a lithium level on morning. Anticipate discharge on to home and girlfriend with referral to [facility]'s IOP and for visiting nurse a couple of times a week.
--- NOTE | 2018-04-06 17:15 | SOCIAL WORKER PROG NOTE PSYCH ---
Social Work Progress Note Progress Note Jacquie Mirza (PA student) and this creative writer met with patient. We discussed anticipated discharge for , 04/08/18, which patient was agreeable to, however, wished to discharge sooner. He described his mood as "well, I'm in a great mood." He rated his sadness at a -2/10, anxiety at a 0/ 10. He denied the following: feeling hopeless, helpless, worthless, guilty. He denied SI/HI/hallucinations/PI. Regarding sleep, "pretty regular sleep," however, he reported "vivid dreams" that were "interesting" and "not disturbing. " He stated that he has a good appetite, high energy. Patient is agreeable to IOP, which will be explored further, and is also agreeable to a visiting nurse. He stated that he will explore individual therapy on his own after discharge. He was encouraged to speak with his IOP clinician should he find that he needs assistance with this.
[2018-04-06 20:01] VITALS: BP 149/84
[2018-04-07 07:40] VITALS: BP 140/72
--- NOTE | 2018-04-07 09:08 | CP SOUTH PROGRESS NOTE PSYCH ---
Psych (Inpt) Progress Note Progress Note Include the following elements, when applicable: Involvement in the active treatment of the patient with behavioral observations of the patient and the patient's response to the treatment. Review of the ongoing treatment process in the context of the treatment plan. Indication of how multi-disciplinary staff members are carrying out the treatment plan. Plans for future interventions and recommendations for revision of the treatment plan. Liaison with other physicians/providers. Progress Note: SUBJECTIVE: Patient reports attending groups today, social on the unit. Eating well. Patient reports delayed sleep onset but then able to stay asleep for 8 hours however with vivid but not frightening dreams. Feels rested in the morning and not as sedated as previously. No SI/HI/AVH/SIB. Patient states he has not had any SI since the day of admission. No abnormal movements reported. Patient states the plan discussed with social work is to be discharged tomorrow directly to [facility] for intake, in agreement with plan. Denies cravings or withdrawal. Discussed results of echo and repeat EEG, patient expressed understanding. Patient counseled to avoid Zyprexa and if any cardiac issues in the future to speak to his doctor. OBJECTIVE: Per nursing, pt did well overnight without any acute events. Pt remained in behavioral control, adherent with staff instructions and medications. VSS. Current Medications Sig/[place] Start time Last Medication Dose Route Stop Time Status Admin Acetaminophen 650 MG Q4P PRN 04/01 1215 AC PO Al Hydroxide/Mg 30 ML Q4-6 PRN PRN 04/01 1215 AC Hydroxide PO Haloperidol 5 MG Q6P PRN 04/01 1315 AC IM Hydroxyzine HCl 50 MG Q6P PRN 04/01 1215 AC PO [place] Carbonate 600 MG 0800,04/05 AC 04/07 PO 0748 Lorazepam 2 MG Q6-PRN PRN 04/01 1215 AC IM Nicotine 2 MG Q2P PRN 04/02 1430 AC PO Trazodone HCl 50 MG AT BEDTIME NEED.. 04/02 2239 AC PO Vital Signs Date Time Temp Pulse Resp B/P B/P Pulse O2 O2 Flow FiO2 Mean Ox Delivery Rate 04/07 07 96.8 61 140/72 04/06 2001 96.7 96 149/84 MSE: GENERAL: Alert and oriented x3, good eye contact, well-groomed, hair in cherise, sociable, no apparent distress SPEECH: Moderate rate and volume, normal prosody, fluent MOTOR: No tics, tremors, stereotypy, or abnormal movements MOOD: "Actually pretty good" AFFECT: Calm, pleasant, polite, mood congruent, good range, non-labile, well related THOUGHT PROCESS: Logical, linear and goal-directed THOUGHT CONTENT: No SI/HI/AVH/SIB, no apparent grandiosity, paranoia, delusions , obsessions, ruminations COGNITION: No apparent deficit in attention, memory or concentration JUDGMENT: Good INSIGHT: Fair IMAGING: PATIENT: ARTURO IRBY PRESENT AGE: 28 PATIENT ACCOUNT NO: [id number] : [birth year] LOCATION: [facility] ORDERING PHYSICIAN: Hilario Saba MD SERVICE DATE: 04/03/18 EXAM TYPE: CARD - ECHOCARDIOGRAM ARTURO IRBY Age: 28 : 1990 Gender: M Exam Date: 04/06/2018 08:03 Exam Location: [facility] Ht (in): 66 Wt (lb): 129 BSA: 1.65 BP: 120 / 79 Ordering Physician: Hilario Saba MD Referring Physician: Hilario Saba MD Technologist: Lemuel Addison [facility] Room Number: SO B7-02 Indications: Cardiomyopathy, unspecified Rhythm: Sinus Technical Quality: good FINDINGS Left Ventricle Normal left ventricular size, wall thickness and systolic function with no obvious regional wall motion abnormalities. Normal left ventricular diastolic filling pattern for age. The ejection fraction is visually estimated at 55%. Right Ventricle The right ventricle is normal in size and function. Right Atrium The right atrium is normal in size. Left Atrium The left atrium is normal in size. The interatrial septum is intact. Mitral Valve The mitral valve is normal in structure and function. There is no mitral regurgitation. Aortic Valve Structurally normal aortic valve without significant sclerosis or stenosis. There is no aortic regurgitation. Tricuspid Valve The tricuspid valve is normal in structure and function. There is trace tricuspid regurgitation. Pulmonary artery systolic pressure is normal. Pulmonic Valve Structurally normal pulmonic valve. There is trace pulmonic regurgitation. Pericardium Normal pericardium without effusion. No pleural effusion. Great Vessels Normal aortic root dimension. The aortic arch and great vessels are well seen and are normal. CONCLUSIONS 1. Normal EF of 55%. 2. Trace tricuspid regurgitation. 3. Trace pulmonic regurgitation. Samuel Gambino M.D. (Electronically Signed) Final Date: 07 April 2018 09:18 MEASUREMENTS (Male / Female) Normal Values 2D ECHO LV Diastolic Diameter PLAX 5.0 cm 4.2 - 5.9 / 3.9 - 5.3 cm LV Systolic Diameter PLAX 3.6 cm 2.1 - 4.0 cm LV Fractional Shortening PLAX 28.0 % 25 - 46 % LV Ejection Fraction 2D Teich 54.0 % IVS Diastolic Thickness 0.9 cm LVPW Diastolic Thickness 0.9 cm LV Relative Wall Thickness 0.4 RV Internal Dim ED PLAX 2.3 cm 1.9 - 3.8 cm LVOT Diameter 1.9 cm Aortic Root Diameter 3.4 cm LA Systolic Diameter LX 2.7 cm 3.0 - 4.0 / 2.7 - 3.8 cm LA Volume 60.0 cm 18 - 58 / 22 - 52 cm Ascending Aorta Diameter 2.5 cm DOPPLER AV Peak Velocity 130.0 cm/s AV Peak Gradient 6.8 mmHg AV Mean Velocity 86.3 cm/s AV Mean Gradient 3.0 mmHg AV Velocity Time Integral 29.1 cm LVOT Peak Velocity 98.5 cm/s LVOT Peak Gradient 3.9 mmHg LVOT Mean Velocity 65.2 cm/s LVOT Mean Gradient 2.0 mmHg LVOT Velocity Time Integral 20.9 cm LVOT Stroke Volume 59.3 cm AV Area Cont Eq vti 2.0 cm AV Area Cont Eq pk 2.1 cm MV Peak Velocity 75.8 cm/s MV Peak Gradient 2.3 mmHg MV Mean Velocity 38.5 cm/s MV Mean Gradient 1.0 mmHg Mitral E Point Velocity 54.8 cm/s Mitral A Point Velocity 36.5 cm/s Mitral E to A Ratio 1.5 MV PHT Velocity 76.0 cm/s MV Deceleration [place] 379.0 cm/s MV Pressure Half Time 60.2 ms MV Area PHT 3.7 cm MV Deceleration Time 412.0 ms TR Peak Velocity 233.0 cm/s TR Peak Gradient 21.7 mmHg Right Atrial Pressure 5.0 mmHg Pulmonary Artery Systolic Pressure 26.7 mmHg Right Ventricular Systolic Pressure 26.7 mmHg PV Peak Velocity 81.3 cm/s PV Peak Gradient 2.6 mmHg PV Mean Velocity 59.7 cm/s PV Mean Gradient 2.0 mmHg PV Velocity Time Integral 21.4 cm LV E' Lateral Velocity 12.5 cm/s Mitral E to LV E' Lateral Ratio 4.4 LV E' Septal Velocity 11.1 cm/s Mitral E to LV E' Septal Ratio 4.9 DICTATED BY: Immanuel VIEIRA PHD,Samuel Horton DATE/TIME DICTATED:04/07/18917 RESISTOR TESTER:ADRI DATE/TIME TRANSCRIBED:04/07/18917 CONFIDENTIAL, DO NOT COPY WITHOUT APPROPRIATE AUTHORIZATION. <Electronically signed in Other Vendor System> SIGNED BY: Immanuel VIEIRA PHD,Samuel Horton 04/07/18918 ASSESSMENT & PLAN: 28 you M with Biploar Disorder, anxiety and depression with past SA via o/d in and SA via o/d on zyprexa this admission, stabilizing on Li. Per cardiology, zyprexa now contraindicated d/t myocarditis. Repeat ECG today similar to previous, QTc 480 ms, SR with ST elevation. Echo EF 55% with mild tricuspid and pulmonic regurgitation. Patient appears to be doing well and looking forward to discharge and IOP intake tomorrow. -maintain safety, q15 min checks, vs tid. -Li level tomorrow, titrate as indicated -Confirmed that Zyprexa is listed as an allergy. -cont meds above -Dc planned for directly for [facility] IOP intake, then home with girlfriend, VNA -Patient counseled to see his doctor if any further cardiac issues expressed agreement.
--- NOTE | 2018-04-07 09:19 | ECHOCARDIOGRAM REPORT ---
ARTURO IRBY Age: 28 : 1990 Gender: M Exam Date: 04/06/2018 08:03 Exam Location: [facility] Ht (in): 66 Wt (lb): 129 BSA: 1.65 BP: 120 / 79 Ordering Physician: Hilario Saba MD Referring Physician: Hilario Saba MD Technologist: eLmuel Addison [facility] Room Number: CP SO B7-02 Indications: Cardiomyopathy, unspecified Rhythm: Sinus Technical Quality: good FINDINGS Left Ventricle Normal left ventricular size, wall thickness and systolic function with no obvious regional wall motion abnormalities. Normal left ventricular diastolic filling pattern for age. The ejection fraction is visually estimated at 55%. Right Ventricle The right ventricle is normal in size and function. Right Atrium The right atrium is normal in size. Left Atrium The left atrium is normal in size. The interatrial septum is intact. Mitral Valve The mitral valve is normal in structure and function. There is no mitral regurgitation. Aortic Valve Structurally normal aortic valve without significant sclerosis or stenosis. There is no aortic regurgitation. Tricuspid Valve The tricuspid valve is normal in structure and function. There is trace tricuspid regurgitation. Pulmonary artery systolic pressure is normal. Pulmonic Valve Structurally normal pulmonic valve. There is trace pulmonic regurgitation. Pericardium Normal pericardium without effusion. No pleural effusion. Great Vessels Normal aortic root dimension. The aortic arch and great vessels are well seen and are normal. CONCLUSIONS 1. Normal EF of 55%. 2. Trace tricuspid regurgitation. 3. Trace pulmonic regurgitation. Samuel Gambino M.D. (Electronically Signed) Final Date: 07 April 2018 09:18 MEASUREMENTS (Male / Female) Normal Values 2D ECHO LV Diastolic Diameter PLAX 5.0 cm 4.2 - 5.9 / 3.9 - 5.3 cm LV Systolic Diameter PLAX 3.6 cm 2.1 - 4.0 cm LV Fractional Shortening PLAX 28.0 % 25 - 46 % LV Ejection Fraction 2D Teich 54.0 % IVS Diastolic Thickness 0.9 cm LVPW Diastolic Thickness 0.9 cm LV Relative Wall Thickness 0.4 RV Internal Dim ED PLAX 2.3 cm 1.9 - 3.8 cm LVOT Diameter 1.9 cm Aortic Root Diameter 3.4 cm LA Systolic Diameter LX 2.7 cm 3.0 - 4.0 / 2.7 - 3.8 cm LA Volume 60.0 cm 18 - 58 / 22 - 52 cm Ascending Aorta Diameter 2.5 cm DOPPLER AV Peak Velocity 130.0 cm/s AV Peak Gradient 6.8 mmHg AV Mean Velocity 86.3 cm/s AV Mean Gradient 3.0 mmHg AV Velocity Time Integral 29.1 cm LVOT Peak Velocity 98.5 cm/s LVOT Peak Gradient 3.9 mmHg LVOT Mean Velocity 65.2 cm/s LVOT Mean Gradient 2.0 mmHg LVOT Velocity Time Integral 20.9 cm LVOT Stroke Volume 59.3 cm AV Area Cont Eq vti 2.0 cm AV Area Cont Eq pk 2.1 cm MV Peak Velocity 75.8 cm/s MV Peak Gradient 2.3 mmHg MV Mean Velocity 38.5 cm/s MV Mean Gradient 1.0 mmHg Mitral E Point Velocity 54.8 cm/s Mitral A Point Velocity 36.5 cm/s Mitral E to A Ratio 1.5 MV PHT Velocity 76.0 cm/s MV Deceleration [place] 379.0 cm/s MV Pressure Half Time 60.2 ms MV Area PHT 3.7 cm MV Deceleration Time 412.0 ms TR Peak Velocity 233.0 cm/s TR Peak Gradient 21.7 mmHg Right Atrial Pressure 5.0 mmHg Pulmonary Artery Systolic Pressure 26.7 mmHg Right Ventricular Systolic Pressure 26.7 mmHg PV Peak Velocity 81.3 cm/s PV Peak Gradient 2.6 mmHg PV Mean Velocity 59.7 cm/s PV Mean Gradient 2.0 mmHg PV Velocity Time Integral 21.4 cm LV E' Lateral Velocity 12.5 cm/s Mitral E to LV E' Lateral Ratio 4.4 LV E' Septal Velocity 11.1 cm/s Mitral E to LV E' Septal Ratio 4.9
--- NOTE | 2018-04-07 10:33 | PN- Cardiology ---
Subjective Subjective: * No chest discomfort or shortness of breath. * Follow up ECG shows early repolarization changes but with improved ST elevations in the inferior leads. * troponin is normal * Echo shows a normal EF without pericardial effusion. Objective Vital Signs and I&Os Vital Signs Date Time Temp Pulse Resp B/P B/P Pulse O2 O2 Flow FiO2 Mean Ox Delivery Rate 04/07 0740 96.8 61 140/72 04/06 2001 96.7 96 149/84 Intake & Output 04/07 1600 04/07 0804/07 0000 04/06 0804/06 0000 Intake Total Output Total Balance Patient 129 lb Weight Physical Exam: General: WD/WN male in NAD; alert and oriented x 3 HEENT: NC/AT, PERRL, EOMI Neck: no JVD, no carotid bruit Heart: RRR w/o murmur Lungs: clear bilaterally ABdomen: soft, NT, +ve bowel sounds, midline abdominal scar Extremities: no edema Assessment/Plan Assessment/Plan * Jelani has evidence of a 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 Zyprexa can also cause pericarditis although he has no symptoms of this. I strongly suspect that his CK on this admission and the prior admission were both related to myocarditis from Zyprexa. I would not use this medication again. * Echo is essentially normal. This patient is expected to do well from a cardiac standpoint. Continue telemetry? No
--- NOTE | 2018-04-07 16:22 | SOCIAL WORKER PROG NOTE PSYCH ---
Social Work Progress Note Progress Note Psychiatric Community Health Worker Note Confirmed [facility] IOP appt with [facility] for 04.08.18 at 1:15pm. Spoke with Janell from [facility] to schedule medication administration for 1-2x/week. Janell will follow up with IOP on 04.08.18 to get the name of the psychiatrist that will be assigned to pt. W-10 will be faxed to Janell ([phone]) upon pt's discharge. Heather Plata (Tish) Psychiatric CHW
--- NOTE | 2018-04-07 16:29 | SOCIAL WORKER PROG NOTE PSYCH ---
Social Work Progress Note Progress Note This senior writer met with patient. He reported his mood as "well. I'm good" and denied SI/HI/hallucinations. He identified a safety plan to "talk to my mother or talk to a friend." He was also informed that he will be provided with crisis numbers and warm lines upon discharge, which he states that he is agreeable to utilizing. Patient is agreeable to a [facility] intake as well as a referral to a visiting nurse. He stated that he had one as a teenager, but does not recall which service it was and does not have a preference. Patient states that he is looking forward to discharging tomorrow.
--- NOTE | 2018-04-07 17:34 | SOCIAL WORKER PROG NOTE PSYCH ---
Social Work Progress Note Progress Note [facility] concurrent auth entered: Determination Status: PENDED The services requested require additional review. You will be contacted regarding the status of this request if further information is needed. An authorization decision will be made within the required timeframes and details of that decision may be found under the member's authorization history. Member Name Member ID Member Subscriber Name Subscriber ID ARTURO IRBY [id number] 1990 ARTURO IRBY [id number] Pended Authorization # Client Authorization # Type of Request [id number] CONCURRENT Date of Admission/ Start of Services Requested From Submission Date 04/01/2018 04/07/2018 04/07/2018 Level of Service Type of Service Level of Care Type of Care INPATIENT/[facility] Inpatient [facility]patient [facility]
[2018-04-07 19:54] VITALS: BP 136/77
[2018-04-08 07:52] VITALS: BP 122/65
--- NOTE | 2018-04-08 10:34 | SOCIAL WORKER PROG NOTE PSYCH ---
Social Work Progress Note Progress Note Pt was in good spirits, feeling calm and denies si/hi/ah/vh. Pt states he is prepared for discharge and eager to get back to his life. Pt agreeable to attend IOP intake today at 1:15pm and will have a visiting nurse through [facility].
[2018-04-08] MEDS ORDERED: NICORELIEF2 MG PO (12:17)
[2018-04-08] MEDS ORDERED: LITHIUM CARBON150 M1 PO (12:17)
[2018-04-08] MEDS ORDERED: LITHIUM CARBON300 M4 PO (12:17)
[2018-04-08] MEDS ORDERED: TRAZODONE HCL50 M1 PO (12:17)
--- NOTE | 2018-04-08 12:25 | Patient Discharge Instructions ---
Psych Discharge Inst General Discharge Information Reason for Admission: Olanzapine overdose. Psy Discharge Primary Diag+ Bipolar d/o, depressed Psy Discharge Secondary Diag+ Cannabis use disorder Alcohol use disorder S/p olanzapine overdose Summary Tests/Major Procedures Lab ALT 32 U/L 03/30/18 0645 AST 40 U/L 03/30/18 0645 BUN 19 mg/dL 04/02/18 1553 Calcium 8.3 mg/dL L 03/29/18 0307 Carbon Dioxide 30 mmol/L 04/02/18 1553 Chloride 100 mmol/L 04/02/18 1553 Creatine Kinase 319 U/L H 03/31/18 0626 Creatinine 1.0 mg/dL 04/02/18 1553 Estimated GFR > 60 ml/min 04/02/18 1553 Glucose 101 mg/dL H 03/29/18 0307 Magnesium 1.9 mg/dL 03/31/18 0626 Potassium 4.5 mmol/L 04/02/18 1553 Sodium 141 mmol/L 04/02/18 1553 TSH &T3 &Free T4 Intrp 1.010 uIU/mL 03/31/18 0626 Troponin I < 0.01 ng/ml 04/02/18 1553 Acetaminophen < 10.0 ug/mL L 03/29/18 0307 [place] 0.2 mmol/L L 04/05/18 0645 [place] 0.6 mmol/L 04/08/18 0642 Serum Alcohol < 10.0 MG/DL 03/29/18 0307 SERVICE DATE: 03/29/180046 EXAM TYPE: CAT - CT HEAD WO IV CONTRAST EXAMINATION: CT HEAD WITHOUT CONTRAST CLINICAL INFORMATION: Mental status change COMPARISON: None TECHNIQUE: Contiguous axial imaging was performed from the skull base to vertex without intravenous administration of contrast. DLP: 728.27 mGy-cm FINDINGS: There is no evidence of acute intracranial hemorrhage or territorial infarction. No abnormal mass effect or midline shift is seen. [place] to white matter differentiation is well preserved. No extra-axial fluid collections are identified. The ventricles are normal in size. There is no abnormal attenuation within the brain parenchyma. The osseous structures and soft tissues are normal. There is mucosal thickening in the ethmoid sinuses bilateral. The mastoid air cells and middle ear cavities are normally aerated. IMPRESSION: No acute intracranial pathology. EKG 04/07/18 showed sinus rhythm @ 90, ST elev, probable normal early repol pattern, minor changes since previous tracing, significant ECG contour changes, QT 392, QTC 480, borderline EKG. SERVICE DATE: 04/03/18 EXAM TYPE: CARD - ECHOCARDIOGRAM ARTURO IRBY Age: 28 : 1990 Gender: M Exam Date: 04/06/2018 08:03 Exam Location: [facility] Ht (in): 66 Wt (lb): 129 BSA: 1.65 BP: 120 / 79 Ordering Physician: Hilario Saba MD Referring Physician: Hilario Saba MD Technologist: Lemuel Addison [facility] [place] Room Number: CP SO B7-02 Indications: Cardiomyopathy, unspecified Rhythm: Sinus Technical Quality: good FINDINGS Left Ventricle Normal left ventricular size, wall thickness and systolic function with no obvious regional wall motion abnormalities. Normal left ventricular diastolic filling pattern for age. The ejection fraction is visually estimated at 55%. Right Ventricle The right ventricle is normal in size and function. Right Atrium The right atrium is normal in size. Left Atrium The left atrium is normal in size. The interatrial septum is intact. Mitral Valve The mitral valve is normal in structure and function. There is no mitral regurgitation. Aortic Valve Structurally normal aortic valve without significant sclerosis or stenosis. There is no aortic regurgitation. Tricuspid Valve The tricuspid valve is normal in structure and function. There is trace tricuspid regurgitation. Pulmonary artery systolic pressure is normal. Pulmonic Valve Structurally normal pulmonic valve. There is trace pulmonic regurgitation. Pericardium Normal pericardium without effusion. No pleural effusion. Great Vessels Normal aortic root dimension. The aortic arch and great vessels are well seen and are normal. CONCLUSIONS 1. Normal EF of 55%. 2. Trace tricuspid regurgitation. 3. Trace pulmonic regurgitation. Samuel Gambino M.D. (Electronically Signed) Final Date: 07 April 2018 09:18 MEASUREMENTS (Male / Female) Normal Values 2D ECHO LV Diastolic Diameter PLAX 5.0 cm 4.2 - 5.9 / 3.9 - 5.3 cm LV Systolic Diameter PLAX 3.6 cm 2.1 - 4.0 cm LV Fractional Shortening PLAX 28.0 % 25 - 46 % LV Ejection Fraction 2D Teich 54.0 % IVS Diastolic Thickness 0.9 cm LVPW Diastolic Thickness 0.9 cm LV Relative Wall Thickness 0.4 RV Internal Dim ED PLAX 2.3 cm 1.9 - 3.8 cm LVOT Diameter 1.9 cm Aortic Root Diameter 3.4 cm LA Systolic Diameter LX 2.7 cm 3.0 - 4.0 / 2.7 - 3.8 cm LA Volume 60.0 cm 18 - 58 / 22 - 52 cm Ascending Aorta Diameter 2.5 cm DOPPLER AV Peak Velocity 130.0 cm/s AV Peak Gradient 6.8 mmHg AV Mean Velocity 86.3 cm/s AV Mean Gradient 3.0 mmHg AV Velocity Time Integral 29.1 cm LVOT Peak Velocity 98.5 cm/s LVOT Peak Gradient 3.9 mmHg LVOT Mean Velocity 65.2 cm/s LVOT Mean Gradient 2.0 mmHg LVOT Velocity Time Integral 20.9 cm LVOT Stroke Volume 59.3 cm AV Area Cont Eq vti 2.0 cm AV Area Cont Eq pk 2.1 cm MV Peak Velocity 75.8 cm/s MV Peak Gradient 2.3 mmHg MV Mean Velocity 38.5 cm/s MV Mean Gradient 1.0 mmHg Mitral E Point Velocity 54.8 cm/s Mitral A Point Velocity 36.5 cm/s Mitral E to A Ratio 1.5 MV PHT Velocity 76.0 cm/s MV Deceleration [place] 379.0 cm/s MV Pressure Half Time 60.2 ms MV Area PHT 3.7 cm MV Deceleration Time 412.0 ms TR Peak Velocity 233.0 cm/s TR Peak Gradient 21.7 mmHg Right Atrial Pressure 5.0 mmHg Pulmonary Artery Systolic Pressure 26.7 mmHg Right Ventricular Systolic Pressure 26.7 mmHg PV Peak Velocity 81.3 cm/s PV Peak Gradient 2.6 mmHg PV Mean Velocity 59.7 cm/s PV Mean Gradient 2.0 mmHg PV Velocity Time Integral 21.4 cm LV E' Lateral Velocity 12.5 cm/s Mitral E to LV E' Lateral Ratio 4.4 LV E' Septal Velocity 11.1 cm/s Mitral E to LV E' Septal Ratio 4.9 Studies Pending at SD: None. Patient Instructions Contact Information Your Psychiatrist on [facility] was Hilario Saba MD * If you are experiencing an emergency related to this hospitalization, please call [phone] to contact the treating psychiatrist or the psychiatrist-on- call. * To Request a copy of your medical records, please contact the Medical Records Department at [phone]. * To request results of studies pending at the time of discharge, please call [phone]. * Continue your Medications until directed to stop by your Healthcare provider. General Medication Information Please continue to take your new medications and your continued home medications , unless otherwise indicated on your discharge medication list, or unless directed by your MD or [employer] to stop them. Special Instructions Diet Regular Activity Normal Other Inst/Recommendations Take lithium as Rx'd. Stop MJ. Never take olanzapine again. - Tobacco Use Treatment Offered Post DC Medications Offered: Script Given-See Med List Post DC Tobacco Treatment Plan: [facility] Tobacco Tx Pgm Program Appt Date: 04/21/18 Program Appt Time: 1600 - EtOH/Drug Use D/O Treatment Offered Post DC Medications Offered: Med Not Indicated for D/O Post DC EtOH/SubAbuse TX Plan: [facility] SubAbuse/Dual IOP Program Appt Date: 04/08/18 Program Appt Time: 1315 Metabolic Screening ([x]) Not Applicable, patient not on a neuroleptic. OR () Patient on a neuroleptic(s) . Enter below results for Hemoglobin A1C, and lipid panel if obtained during the last 365 days. BMI: 20.800 Blood Pressure: 122/65 Laboratory Results From [facility] EHR (If applicable): Advance Directives Does the Patient have Medical Advance Directives No/Refused further info Does Pt have Psychiatric Advance Directives? No/Refused further info Does Patient have a Designated Surrogate Decision Maker: No Information About Psychiatric Advance Directives Provided? Refused Discharge Plan Post Hospital Treatment Plan: IOP
--- NOTE | 2018-04-08 15:17 | SOCIAL WORKER PROG NOTE PSYCH ---
Social Work Progress Note Progress Note Psychiatric Community Health Worker Note Determination Status: DISCHARGE COMPLETED Thank you. You have completed your discharge for this episode of care. Member Name Member ID Member Subscriber Name Subscriber ID ARTURO IRBY [id number] 1990 ARTURO IRBY [id number] Related Authorization # Related Client Authorization # Discharge # Discharge Date [id number] 04/08/2018 Level of Service Type of Service Level Of Care Type of Care IP - INPATIENT/HLOC P - MENTAL HEALTH I - INPATIENT CIP - INPATIENT HOSPITAL - INPATIENT HOSPITAL Provider Name & Address Provider ID Provider Alternate ID EDITH CESILIA [id number] [address] [place] [phone]
--- NOTE | 2018-04-08 15:43 | CP SOUTH PROGRESS NOTE PSYCH ---
Psych (Inpt) Progress Note Progress Note Include the following elements, when applicable: Involvement in the active treatment of the patient with behavioral observations of the patient and the patient's response to the treatment. Review of the ongoing treatment process in the context of the treatment plan. Indication of how multi-disciplinary staff members are carrying out the treatment plan. Plans for future interventions and recommendations for revision of the treatment plan. Liaison with other physicians/providers. Progress Note: Dr. Bennett's note reviewed. Case and treatment plan discussed in team meeting. Staff reports that this morning's lithium level is 0.6. Denying suicidal ideation. Looking forward to leaving. Has an IOP intake at 1:15 PM. Patient seen at 10:37 AM with elementary school social worker, Zuleima. Affect is calm and euthymic. He has no complaints. Mood is great. Rates sad mood and anxiety both 0/10. Reports he had a left eyelid twitch yesterday. Reassured that the blepharospasm was most likely due to stress. Denies feeling hopeless, helpless, worthless or guilty. Denies active and passive suicidal ideation. Denies homicidal ideation. Denies auditory and visual hallucinations and paranoid ideation. [place] level was discussed with the patient. He agreed to increase lithium dose to 600 mg in the morning and and 750 mg at night. Reports sleep was fine but he awakened at 4 AM to urinate and then went back to sleep until 7 AM. Reports he is still eating a lot. Energy is normal. Tolerating medications well, without complaint. He was reminded to tell future providers that he is allergic to olanzapine. Feels ready and safe for discharge. Patient was advised to stop cannabis use. IMPRESSION: Condition improved. Okay for discharge today to IOP intake then to return home.
--- NOTE | 2018-04-08 15:49 | DISCHARGE SUMMARY REPORT-PSYCH ---
Visit Information Visit Dates/Diagnosis' Admission Date: 04/01/18 Discharge Date: 04/08/18 Reason for Admission: Olanzapine overdose. Psy Discharge Primary Diag: Bipolar d/o, depressed Psy Discharge Secondary Diag: Cannabis use disorder Alcohol use disorder S/p olanzapine overdose Hospital Course Significant Lab Findings: Lab ALT 32 U/L 03/30/18 0645 AST 40 U/L 03/30/18 0645 BUN 19 mg/dL 04/02/18 1553 Calcium 8.3 mg/dL L 03/29/18 0307 Carbon Dioxide 30 mmol/L 04/02/18 1553 Chloride 100 mmol/L 04/02/18 1553 Creatine Kinase 319 U/L H 03/31/18 0626 Creatinine 1.0 mg/dL 04/02/18 1553 Estimated GFR > 60 ml/min 04/02/18 1553 Glucose 101 mg/dL H 03/29/18 0307 Magnesium 1.9 mg/dL 03/31/18 0626 Potassium 4.5 mmol/L 04/02/18 1553 Sodium 141 mmol/L 04/02/18 1553 TSH &T3 &Free T4 Intrp 1.010 uIU/mL 03/31/18 0626 Troponin I < 0.01 ng/ml 04/02/18 1553 Acetaminophen < 10.0 ug/mL L 03/29/18 0307 [place] 0.2 mmol/L L 04/05/18 0645 [place] 0.6 mmol/L 04/08/18 0642 Serum Alcohol < 10.0 MG/DL 03/29/18 0307 SERVICE DATE: 03/29/186 EXAM TYPE: CAT - CT HEAD WO IV CONTRAST EXAMINATION: CT HEAD WITHOUT CONTRAST CLINICAL INFORMATION: Mental status change COMPARISON: None TECHNIQUE: Contiguous axial imaging was performed from the skull base to vertex without intravenous administration of contrast. DLP: 728.27 mGy-cm FINDINGS: There is no evidence of acute intracranial hemorrhage or territorial infarction. No abnormal mass effect or midline shift is seen. [place] to white matter differentiation is well preserved. No extra-axial fluid collections are identified. The ventricles are normal in size. There is no abnormal attenuation within the brain parenchyma. The osseous structures and soft tissues are normal. There is mucosal thickening in the ethmoid sinuses bilateral. The mastoid air cells and middle ear cavities are normally aerated. IMPRESSION: No acute intracranial pathology. EKG 9/19/18 showed sinus rhythm @ 90, ST elev, probable normal early repol pattern, minor changes since previous tracing, significant ECG contour changes, QT 392, QTC 480, borderline EKG. SERVICE DATE: 04/03/18-110 EXAM TYPE: CARD - ECHOCARDIOGRAM ARTURO IRBY Age: 28 : 1990 Gender: M Exam Date: 04/06/2018 08:03 Exam Location: [facility] Ht (in): 66 Wt (lb): 129 BSA: 1.65 BP: 120 / 79 Ordering Physician: Hilario Saba MD Referring Physician: Hilario Saba MD Technologist: Lemuel Addison [facility] Room Number: CP SO B7-02 Indications: Cardiomyopathy, unspecified Rhythm: Sinus Technical Quality: good FINDINGS Left Ventricle Normal left ventricular size, wall thickness and systolic function with no obvious regional wall motion abnormalities. Normal left ventricular diastolic filling pattern for age. The ejection fraction is visually estimated at 55%. Right Ventricle The right ventricle is normal in size and function. Right Atrium The right atrium is normal in size. Left Atrium The left atrium is normal in size. The interatrial septum is intact. Mitral Valve The mitral valve is normal in structure and function. There is no mitral regurgitation. Aortic Valve Structurally normal aortic valve without significant sclerosis or stenosis. There is no aortic regurgitation. Tricuspid Valve The tricuspid valve is normal in structure and function. There is trace tricuspid regurgitation. Pulmonary artery systolic pressure is normal. Pulmonic Valve Structurally normal pulmonic valve. There is trace pulmonic regurgitation. Pericardium Normal pericardium without effusion. No pleural effusion. Great Vessels Normal aortic root dimension. The aortic arch and great vessels are well seen and are normal. CONCLUSIONS 1. Normal EF of 55%. 2. Trace tricuspid regurgitation. 3. Trace pulmonic regurgitation. Samuel Gambino M.D. (Electronically Signed) Final Date: 07 April 2018 09:18 MEASUREMENTS (Male / Female) Normal Values 2D ECHO LV Diastolic Diameter PLAX 5.0 cm 4.2 - 5.9 / 3.9 - 5.3 cm LV Systolic Diameter PLAX 3.6 cm 2.1 - 4.0 cm LV Fractional Shortening PLAX 28.0 % 25 - 46 % LV Ejection Fraction 2D Te[place] 54.0 % IVS Diastolic Thickness 0.9 cm LVPW Diastolic Thickness 0.9 cm LV Relative Wall Thickness 0.4 RV Internal Dim ED PLAX 2.3 cm 1.9 - 3.8 cm LVOT Diameter 1.9 cm Aortic Root Diameter 3.4 cm LA Systolic Diameter LX 2.7 cm 3.0 - 4.0 / 2.7 - 3.8 cm LA Volume 60.0 cm 18 - 58 / 22 - 52 cm Ascending Aorta Diameter 2.5 cm DOPPLER AV Peak Velocity 130.0 cm/s AV Peak Gradient 6.8 mmHg AV Mean Velocity 86.3 cm/s AV Mean Gradient 3.0 mmHg AV Velocity Time Integral 29.1 cm LVOT Peak Velocity 98.5 cm/s LVOT Peak Gradient 3.9 mmHg LVOT Mean Velocity 65.2 cm/s LVOT Mean Gradient 2.0 mmHg LVOT Velocity Time Integral 20.9 cm LVOT Stroke Volume 59.3 cm AV Area Cont Eq vti 2.0 cm AV Area Cont Eq pk 2.1 cm MV Peak Velocity 75.8 cm/s MV Peak Gradient 2.3 mmHg MV Mean Velocity 38.5 cm/s MV Mean Gradient 1.0 mmHg Mitral E Point Velocity 54.8 cm/s Mitral A Point Velocity 36.5 cm/s Mitral E to A Ratio 1.5 MV PHT Velocity 76.0 cm/s MV Deceleration [place] 379.0 cm/s MV Pressure Half Time 60.2 ms MV Area PHT 3.7 cm MV Deceleration Time 412.0 ms TR Peak Velocity 233.0 cm/s TR Peak Gradient 21.7 mmHg Right Atrial Pressure 5.0 mmHg Pulmonary Artery Systolic Pressure 26.7 mmHg Right Ventricular Systolic Pressure 26.7 mmHg PV Peak Velocity 81.3 cm/s PV Peak Gradient 2.6 mmHg PV Mean Velocity 59.7 cm/s PV Mean Gradient 2.0 mmHg PV Velocity Time Integral 21.4 cm LV E' Lateral Velocity 12.5 cm/s Mitral E to LV E' Lateral Ratio 4.4 LV E' Septal Velocity 11.1 cm/s Mitral E to LV E' Septal Ratio 4.9 Course Complications: None. Consultations: Patient was seen for brief transfer note by Dr. Palacios and by Dr. Samuel Gambino of cardiology regarding abnormal EKG. Please see their notes for additional information. 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 Allergies: Coded Allergies: olanzapine (Severe, Possible myocarditis 04/03/18) diphenhydramine (From BENADRYL) (HIVES 01/16/17) Hospital Course/TX Response: The patient was monitored on the unit for safety and mood disturbance. He participated in multi-modal treatments on the unit. Olanzapine OD was believed to have caused myocarditis and patient has been advised to never again take olanzapine. [place] was started to treat impulsivity and for it's anti-suicidal properties. Mood and affect have been in good control. Suicidal ideation has remitted. Progress note from date of discharge, 04/08/18: "Dr. Bennett's note reviewed. Case and treatment plan discussed in team meeting. Staff reports that this morning's lithium level is 0.6. Denying suicidal ideation. Looking forward to leaving. Has an IOP intake at 1:15 PM. Patient seen at 10:37 AM with social work lecturer, Zuleima. Affect is calm and euthymic. He has no complaints. Mood is great. Rates sad mood and anxiety both 0/10. Reports he had a left eyelid twitch yesterday. Reassured that the blepharospasm was most likely due to stress. Denies feeling hopeless, helpless, worthless or guilty. Denies active and passive suicidal ideation. Denies homicidal ideation. Denies auditory and visual hallucinations and paranoid ideation. [place] level was discussed with the patient. He agreed to increase lithium dose to 600 mg in the morning and and 750 mg at night. Reports sleep was fine but he awakened at 4 AM to urinate and then went back to sleep until 7 AM. Reports he is still eating a lot. Energy is normal. Tolerating medications well, without complaint. He was reminded to tell future providers that he is allergic to olanzapine. Feels ready and safe for discharge. Patient was advised to stop cannabis use. IMPRESSION: Condition improved. Okay for discharge today to IOP intake then to return home. " Discharge HBIPS - Tobacco Use Treatment Offered Post DC Medications Offered: Script Given-See Med List Post DC Tobacco Treatment Plan: [facility] Tobacco Tx Pgm Program Appt Date: 04/21/18 Program Appt Time: 1600 - EtOH/Drug Use D/O Treatment Offered Post DC Medications Offered: Med Not Indicated for D/O Post DC EtOH/SubAbuse TX Plan: [facility] SubAbuse/Dual IOP Program Appt Date: 04/08/18 Program Appt Time: 1315 Metabolic Screening - Screen if on a Neuroleptic Medication - Metabolic screening should include: - Blood Pressure, BMI, Glucose or Hgb A1c, & a - Lipid profile from within the past 365 days. Metabolic Screening ([x]) Not Applicable, patient not on a neuroleptic. OR () Patient on a neuroleptic(s) . Enter below results for Hemoglobin A1C, and lipid panel if obtained during the last 365 days. BMI: 20.800 Blood Pressure: 122/65 Laboratory Results From [facility] EHR (If applicable): Discharge Instructions General Discharge Information Multiple Neuroleptics: ([x]) Not Applicable OR Document below three failed attempts at monotherapy, or a plan to taper to monotherapy, or augmentation of Clozapine. () Discharge Diet Regular Discharge Activity Normal DC Disposition: Returning to home and family. Referrals Ordered Referrals Provider Referral 04/08/18 For Groups: [[facility]] Pt has an intake with [facility] at [address] [place] [address] 04/08/18 at 1:15pm Provider Referral 04/08/18 For Groups: [[facility]] Pt is returning to [facility] and services will start upon discharge Prescriptions Stop taking the following medications: Cyanocobalamin (Vitamin B-12) 1,000 MCG TABLET ORAL DAILY @8 AM Qty = 14 Lidocaine HCl (Lidocaine HCl) 2 % JEL..ML. On the skin AT BEDTIME as needed for PENILE PAIN SCALE 1-3 (MILD) Qty = 1 Start taking the following new medications: Nicotine (Nicorelief) 2 MG GUM 1 Gum ORAL EVERY 2 HOURS NEEDED as needed for nicotine craving Qty = 100 No Refills Comments: Last Taken:04/07/18 Time:7PM Trazodone HCl (Trazodone HCl) 50 MG TABLET 1 Tablet ORAL AT BEDTIME as needed for insomnia Qty = 14 No Refills Comments: Last Taken:04/07/18 Time:8PM [place] Carbonate ([place] Carbonate) 300 MG CAPSULE 2 Capsule ORAL TWICE DAILY Qty = 56 No Refills Comments: Last Taken:04/08/18 Time:8AM [place] Carbonate ([place] Carbonate) 150 MG CAPSULE 1 Capsule ORAL AT BEDTIME Qty = 14 No Refills Comments: Last Taken:TO START TONIGHT Time: Other Inst/Recommendations Take lithium as Rx'd. Stop MJ. Never take olanzapine again. Studies Pending at Discharge None. Copies To: Intensive Outpt Psy-Substance
--- NOTE | 2018-04-08 16:17 | SOCIAL WORKER PROG NOTE PSYCH ---
Social Work Progress Note Faxed Referral(s) 1 Referred To: [facility] Transition of Care Documents sent: Health Summary, W10 Faxed to: [facility] Fax #: [phone] Faxed by: [facility] Date faxed: 04/08/18 Time Faxed: [phone] Comment: Heather Plata (Tish)-Psychiatric [facility] Faxed Referral(s) 2 Referred To: [facility] Transition of Care Documents sent: Health Summary, W10 Faxed to: [facility] Fax #: [phone] Faxed by: [facility] Date faxed: 04/08/18 Time Faxed: [phone] Comment: Heather Foster" [facility]iatric [facility]
== END 2018-04-08 13:10 | DRG 753 ==
LOC: CP SOUTH 11:20
DX: F31.9 Bipolar disorder, unspecified (principal); F12.90 Cannabis use, unspecified, uncomplicated; F10.10 Alcohol abuse, uncomplicated; T43.591A Poisoning by other antipsychotics and neuroleptics, accidental (unintentional), initial encounter
CPT/HCPCS: 36415; 80307; 82436; 93005; 93010; 93306; J1630